=== PATIENT | female | born 1950 | race Caucasian/White ===

== ENCOUNTER 2016-07-29 09:40 | Emergency (ER) | payer MEDICARE, MEDICAID ==
[~2016-07-29 09:40] MED LIST: ACYC400T2 PO; LETR2.5T4 PO; LORA1TAB PO; MOME13HF2 IH; MORP15TA PO; NPR500T PO; ONDA8TAB10 PO; PALB125C PO
--- NOTE | 2016-07-29 09:49 | ED.REPORT ---
HPI-General Illness Date of Service Jul 29, 2016 ED Provider: Dr. Haque Pt is a 65 year old female with a hx of breast and liver cancer on chemo presenting to the ED complaining of a fever of 102.6 onset 2 days ago. Associated symptoms include cough, vomiting, worsening abdominal pain, headache and lower back pain. Denies runny nose, sore throat, sneezing, rash, dysuria, urinary frequency, diarrhea, bloody stool, hematemesis or neck stiffness. Pt has been taking Tylenol with some fever relief. Nursing Notes Stated Complaint: TEST WHITE BLOOD COUNT Chief Complaint: Fever Nursing Notes Reviewed: Yes Allergies: Coded Allergies: codeine (Unverified Adverse Reaction, Intermediate, N/V, Itching, 12/02/15) Uncoded Allergies: CODIENE (Allergy, Intermediate, Nausea,Vomiting, 12/01/15) NAUSEA, VOMITING, ITCHING Scheduled Acyclovir (Acyclovir) 400 Mg Tablet 400 MG PO DAILY Letrozole (Letrozole) 2.5 Mg Tablet 2.5 MG PO DAILYWD Levofloxacin (Levaquin) 750 Mg Tablet 750 MG PO DAILY Mometasone/Formoterol (Dulera 100 Mcg/5 Mcg Inhaler) 13 Gm Hfa.aer.ad 2 PUFFS IH BID Naproxen (Naproxen) 500 Mg Tab 500 MG PO HS Palbociclib (Ibrance) 125 Mg Capsule 125 MG PO DAILY Scheduled PRN Lorazepam (Lorazepam) 1 Mg Tablet 1 MG PO TID PRN PRN For Anxiety Morphine Sulfate (Morphine Sulfate) 15 Mg Tablet 15-30 MG PO Q8H PRN PRN For Pain Ondansetron ODT (Ondansetron ODT) 8 Mg Tab.rapdis 8 MG PO Q12H PRN PRN For Nausea General Time Seen by MD: 09:49 Chief Complaint Fever (102.6) Hx Obtained From: Patient Arrived By: Walk-in Sudden in Onset?: No Onset Occurred: 2 days ago Symptom Duration: Since onset Location: : Abdomen: Back: Head Quality: Painful Severity: Current: Moderate Severity: Maximum: Severe Recent Healthcare: Recent doctor visit, Recent hospitalization Similar Sx Previous: No Past Medical History Past Medical History Notes: Oncologist Ayan Gracia Past Medical History 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, on left physical started September 2015, just starting Ibrance Asthma History of PTSD Past Surgical History Tonsillectomy Appendectomy Prolapsed bladder repair Smoking History Current Some Day Smoker Social History Alcohol Use: "Social" Other Social History: Good social support, Ambulatory Status Independent Review of Systems Full Review of Systems Ears / Nose / Throat: Denies: Nasal congestion, Sore throat Respiratory: Reports: Non-productive cough GI: Reports: Abdominal pain, Nausea, Vomiting, Denies: Bloody/tarry stool, Diarrhea, Hematemesis Female: Denies: Dysuria, Urinary frequency Musculoskeletal: Reports: Back pain, Denies: Neck pain Skin: Denies Rash Neurologic: Reports: Headache Complete sys rev & neg: except as marked. Physical Exam Vital Signs Vital Signs Date Time Temp Pulse Resp B/P Pulse Ox O2 Delivery O2 Flow Rate FiO2 07/29/16 12:51 37.3 83 17 106/65 95 Room Air 07/29/16 09:52 36.4 90 18 114/78 98 Room Air Initial VS: Reviewed General/Constitutional: Well-developed, Well-nourished Head / Eyes: Atraumatic, Normocephalic, PERRL ENT: Mucous membranes moist, Conjunctiva normal, No scleral icterus Neck: Supple, Non-tender, Full range of motion Respiratory: No respiratory distress Extremities: Vascular intact, Neuro intact Neurologic: Alert, Oriented, Nonfocal Psychiatric: Mood/affect normal, Behavior normal, Normal thought content Abdomen: Atraumatic, No distention Lower abdominal tenderness Skin: Atraumatic, Warm, Dry, Intact Couple of mildly erythematous areas 2x4 cm on right forearm. Not hot to the touch, not indurated or fluctuant. Interpretation & Diagnostics Lab Results Interpretation Result Diagram: 07/29/16 1010 07/29/16 1010 Test 07/29/16 10:10 07/29/16 12:04 White Blood Count 2.5th/mm3 (3.8-10.1) Red Blood Count 3.89mil/mm3 (3.90-5.20) Hemoglobin 12.2g/dL (12.0-15.6) Hematocrit 36.6% (35.0-46.0) Mean Corpuscular Volume 94.1fL (81-100) Mean Corpuscular Hemoglobin 31.4pg (27.0-35.0) Mean Corpuscular Hemoglobin Concent 33.3% (32.0-37.0) Red Cell Distribution Width 13.1% (12.3-15.4) Platelet Count 114bil/L (150-400) Neutrophils (%) (Auto) 73.2% (40-74) Lymphocytes (%) (Auto) 24.4% (14-46) Monocytes (%) (Auto) 0.4% (4-12) Eosinophils (%) (Auto) 0.8% (0-5) Basophils (%) (Auto) 0.4% (0-3) Sodium Level 136mEq/L (134-144) Potassium Level 4.0mEq/L (3.5-5.2) Chloride Level 99mEq/L (97-108) Carbon Dioxide Level 22mmol/L (18-29) Blood Urea Nitrogen 14mg/dL (8-27) Creatinine 1.01mg/dL (0.57-1.00) Estimat Glomerular Filtration Rate 79mL/min (>59) Glucose Level 138mg/dL (60-99) Calcium Level 9.1mg/dL (8.5-10.1) Magnesium Level 2.1mg/dL (1.6-2.6) Total Bilirubin 0.7mg/dL (0.0-1.2) Aspartate Amino Transf (AST/SGOT) 151U/L (0-50) Alanine Aminotransferase (ALT/SGPT) 202U/L (0-32) Alkaline Phosphatase 100U/L (25-165) Total Protein 6.9g/dL (6.4-8.4) Albumin 3.5g/dL (3.4-5.0) Hold Mcdonald Top Tube Received (Received) Urine Color Yellow (YELLOW) Urine Appearance Clear (CLEAR,HAZY) Urine pH 5.5 (5.0-8.0) Urine Specific Orange 1.036 (1.003-1.035) Urine Protein Negativemg/dL (NEG,TRACE) Urine Glucose (UA) Negativemg/dL (NEGATIVE) Urine Ketones Negativemg/dL (NEGATIVE) Urine Occult Blood Negative (NEGATIVE) Urine Nitrite Negative (NEGATIVE) Urine Bilirubin Negative (NEGATIVE) Urine Urobilinogen Normalmg/dL (NORMAL) Urine Leukocyte Esterase Trace (NEGATIVE) Urine RBC 0-2/hpf (0-2) Urine WBC 0-5/hpf (0-5) Urine Epithelial Cells Few/hpf (NONE-MOD) Urine Crystals None seen (NONE SEEN) Urine Bacteria None/hpf (NONE-FEW) Urine Hyaline Casts None/lpf (NONE) Urine Granular Casts None seen (NONE SEEN) Urine Waxy Casts None seen (NONE SEEN) Urine Red Blood Cell Casts None seen (NONE SEEN) Urine White Blood Cell Casts None seen (NONE SEEN) Urine Mucus None seen (None Seen) Urine Trichomonas None seen (NONE SEEN) Urine Yeast None (NONE SEEN) Urinalysis Comment None Urine Culture Reflexed Not indicated X-Ray Chest Interpretation Chest Xray Interpretation: IMPRESSION: No acute process. Dictated by: Otilio León M.D. on 07/29/2016 at 10:25 View: AP & lat Interpretation / Wet Read by: Interpret - Radiologist CT Abd / Pelvis Interpretation IMPRESSION: 1. Anterior layering of contrast within the urinary bladder, possibly due to urinary tract infection; recommend correlation with urinalysis. 2. Decreased hepatic metastases. 3. Findings suggestive of cirrhosis. 4. No change in severe bony metastatic disease. Dictated by: Otilio León M.D. on 07/29/2016 at 11:44 Study type: Abdominal CT IV contrast Interpretation / Wet Read by: Interpret - Radiologist Re-Eval/Medical Decision Med Decision/Clinical Course Not neutropenic with URI symptoms likely a bronchitis however given her immunosuppression will start antibiotics. I had recommended Augmentin and azithromycin, the patient refuses this and requests Levaquin. This is not unreasonable, it has good coverage for pathogens, we did at length discussed risk of tendinopathy and other side effects due to Levaquin, she understands and wishes to proceed with Levaquin. Other return in follow-up precautions also discussed with verbally and in written discharge instructions. Time of Eval: 12:23 Patient Status: Condition improved Re-Evaluation/Progress Note: Discussed CT and lab results. The erythema on the pt's forearm does not seem to be worsening. Discussed plan for consultation with the oncologist. Time of Eval: 13:00 Patient Status: Condition improved Re-Evaluation/Progress Note: Discussed plan for discharge. Pt understands and agrees. Consultation : Referral / Consult Name: Sam Kramer MD Call Returned at: 13:03 Note: Oncology. The pt is fine to go home. Counseled Regarding: Diagnosis, Lab results, Need for follow-up, When/why to return to ED Discharge & Departure Primary Impression: Fever Fever type: unspecified Qualified Code: R50.9 - Fever, unspecified Additional Impression: URI, acute Disposition: Home Discharge Condition All VS Reviewed: Yes Condition: Improved Additional Instructions: Take Levaquin as prescribed. Call your oncologist in the morning for follow- up. Return to ER if you develop persistent high fever, lethargy, severe trouble breathing, or any other concerns. Referrals: Rebecca Valladares PA-C (PCP) Andre Gracia Attestation Portions of this note were transcribed by Jacqui Richards. I, Dr. Haque personally performed the history, physical exam and medical decision-making; I reviewed and confirmed the accuracy of the information in the transcribed note. Signed by: Mouna Paulino, 07/29/2016 at 1321. copies to: Rebecca Valladares PA-C; Andre Gracia Timothy S DO Jul 29, 2016 09:49 JACQUI RICHARDS Jul 29, 2016 10:01
[2016-07-29 09:52] VITALS: BP 114/78; PULSE 90; RESP 18; O2SAT 98
[2016-07-29] MEDS ORDERED: 0.9% Sodium Chloride 1,000 ML IV ONE (09:59)
--- NOTE | 2016-07-29 10:27 | DRSVH ---
PROCEDURE: X-RAY CHEST, TWO VIEWS ([id number]) INDICATIONS: cough, fever, on chemo TECHNIQUE: 2 views of the chest were acquired. COMPARISON: None. FINDINGS: Surgical changes and devices: None. Lungs and pleura: No pleural effusions or pneumothorax. Lungs are clear. Mediastinum: Mediastinal contours are normal. Heart size is normal. Bones and chest wall: No suspicious bony abnormalities. Soft tissues appear unremarkable. IMPRESSION: No acute process. Dictated by: Otilio León M.D. on 07/29/2016 at 10:25 Approved by: Otilio León M.D. on 07/29/2016 at 10:26
[2016-07-29 10:30] LABS: BASOPHILS % (AUTO) 0.4 % (0-3); EOSINOPHILS % (AUTO) 0.8 % (0-5); MONOCYTES % (AUTO) 0.4 % (4-12); Mean Corpuscular Hemoglobin 31.4 pg (27.0-35.0); Mean Corpuscular Volume 94.1 fL (81-100); NEUTROPHILS % (AUTO) 73.2 % (40-74); Platelet Count 114 bil/L (150-400)
[2016-07-29 10:49] LABS: Magnesium 2.1 mg/dL (1.6-2.6)
[2016-07-29] MEDS ORDERED: Ondansetron 2 mg/mL 2 mL Inj IVPUSH PRN (11:10)
--- NOTE | 2016-07-29 11:48 | DRSVH ---
PROCEDURE: CT ABDOMEN AND PELVIS WITH CONTRAST ([id number]) INDICATIONS: lower abd pain, fevers, on chemo TECHNIQUE: After the administration of intravenous contrast, 5 mm thick sections acquired from the diaphragm to the symphysis. 5 mm coronal and sagittal reformats were acquired. For radiation dose reduction, the following was used: automated exposure control, adjustment of mA and/or kV according to patient goyo bautista. COMPARISON: [facility], CT, CT CHEST ABD PELVIS W CON, 06/29/2016, 15:08. FINDINGS: Image quality: Excellent. ABDOMEN: Lung bases: Lung bases are clear. Heart size is normal. Solid organs: Liver and spleen are normal in size. Hemangioma within the right hepatic lobe posterio rly is present, as before, measuring roughly 37 mm. Multiple low density hepatic masses are present, which are decreased in size and number. Hepatic contour is nodular, suggestive of cirrhosis. Gallblad matias is within normal limits. Biliary system is non dilated. Pancreas enhances normally. No adrenal nodules. Kidneys demonstrate normal size and enhancement, without hydronephrosis. Peritoneum and bowel: Bowel loops demonstrate normal wall thickness and caliber. No free fluid or a ir. Appendix not seen. No evidence of appendicitis. Nodes and vessels: No retroperitoneal or mesenteric adenopathy by size criteria. Aorta and inferior vena cava are normal in size. Miscellaneous: No ventral hernias. PELVIS: Genitourinary: Bladder wall thickness is normal. There is anterior layering of contrast within the urinary bladder, which may indicate urinary tract infection. Miscellaneous: No inguinal hernias or adenopathy. Bones: Severe diffuse patchy lucency and sclerosis within the axial and proximal appendicular skeleto n is present, indicating severe bony metastatic disease, which has not significantly changed. No vert ebral body compression fractures. IMPRESSION: 1. Anterior layering of contrast within the urinary bladder, possibly due to urinary tract infection; recommend correlation with urinalysis. 2. Decreased hepatic metastases. 3. Findings suggestive of cirrhosis. 4. No change in severe bony metastatic disease. Dictated by: Otilio León M.D. on 07/29/2016 at 11:44 Approved by: Otilio León M.D. on 07/29/2016 at 11:47
[2016-07-29 12:35] LABS: APPEARANCE,URINE CLEAR (CLEAR,HAZY); COLOR,URINE YELLOW (YELLOW); OCCULT BLOOD,URINE NEGATIVE (NEGATIVE); PH,URINE 5.5 (5.0-8.0); UROBILINOGEN,URINE NORMAL (NORMAL)
[2016-07-29] MEDS ORDERED: levoFLOXacin Inj 750 MG in IV Premix 1 EACH IV ONE (12:40)
[2016-07-29 12:51] VITALS: BP 106/65; PULSE 83; RESP 17; O2SAT 95
[2016-07-29] MEDS ORDERED: LEVO750T9 PO (13:19)
== END 2016-07-29 14:18 | disposition home or self-care (01) ==
LOC: SED 10:00
DX: J06.9 Acute upper respiratory infection, unspecified (principal); C50.919 Malignant neoplasm of unspecified site of unspecified female breast; C78.7 Secondary malignant neoplasm of liver and intrahepatic bile duct; F17.200 Nicotine dependence, unspecified, uncomplicated; Z92.21 Personal history of antineoplastic chemotherapy; Z88.5 Allergy status to narcotic agent
CPT/HCPCS: 36415; 71020; 74177; 80053; 81000; 83735; 85025; 87040; 96361; 96365; 96375; 99285; J1956; J2405; J7030; Q9967

== ENCOUNTER 2017-01-11 12:44 | Inpatient (IN) | payer MEDICARE, MEDICAID ==
[~2017-01-11] VITALS: Ht 172.7 cm; Wt 89.2 kg
[~2017-01-11 12:44] MED LIST changes: +LEVO750T9 PO; -PALB125C PO
[2017-01-11 12:48] VITALS: BP 132/86; PULSE 118; RESP 20; O2SAT 94
--- NOTE | 2017-01-11 13:11 | ED.REPORT ---
HPI-General Illness Date of Service Jan 11, 2017 ED Provider: Dylon Whitt MD Pt is a 66 year old female with a history of breast cancer that metastasized to her liver and lungs who presents to the ED c/o generalized malaise. Her son states that she has had sudden confusion for the past 2-3 days that has never happened before. Additional symptoms include nausea, vomiting, abdominal pain, and distension from liver failure/cancer. She denies unilateral weakness. Pt states that her doctor called her last night, which was confirmed in the ED. Dr. William states he called her because he was worried about her liver since she didn't show up for chemo two days ago. Nursing Notes Stated Complaint: WEAK Chief Complaint: Female Abdominal Pain Nursing Notes Reviewed: Yes (Mr. Youth not reconciled) Allergies: Coded Allergies: nitrofurantoin (Verified Allergy, Severe, Nausea,Vomiting, 01/11/17) morphine (Verified Adverse Reaction, Severe, nausea/vomiting, 01/11/17) codeine (Verified Adverse Reaction, Intermediate, N/V, Itching, 01/11/17) Scheduled Acyclovir (Acyclovir) 400 Mg Tablet 400 MG PO DAILY Mometasone/Formoterol (Dulera 100 Mcg/5 Mcg Inhaler) 13 Gm Hfa.aer.ad 2 PUFFS IH BID Scheduled PRN Hydromorphone (Hydromorphone) 2 Mg Tablet 2 MG PO QID PRN PRN For Pain Lorazepam (Lorazepam) 1 Mg Tablet 1 MG PO TID PRN PRN For Anxiety Ondansetron ODT (Ondansetron ODT) 8 Mg Tab.rapdis 8 MG PO Q12H PRN PRN For Nausea General Time Seen by MD: 13:09 Chief Complaint Other (Generalized malaise) Hx Obtained From: Patient, Son Arrived By: Walk-in Sudden in Onset?: No Symptom Duration: Constant Quality: Painful Severity: Current: Moderate Severity: Maximum: Severe Recent Healthcare: Recent doctor visit Past Medical History Past Medical History Notes: Oncologist Dr. William Past Medical History Metastatic breast cancer with liver notable and osseous involvement, on left physical started September 2015, just starting Ibrance Asthma History of PTSD Past Surgical History Tonsillectomy Appendectomy Prolapsed bladder repair Smoking History Current Some Day Smoker Social History Alcohol Use: "Social" Other Social History: Good social support, Ambulatory Status Independent Review of Systems Distention from liver failure/cancer No unilateral weakness Full Review of Systems Constitutional: Reports: Malaise GI: Reports: Abdominal pain, Nausea, Vomiting Psychiatric: Reports: Change mental status, Confusion Complete sys rev & neg: except as marked. Physical Exam Vital Signs Vital Signs Date Time Temp Pulse Resp B/P Pulse Ox O2 Delivery O2 Flow Rate FiO2 01/11/17 14:31 95 Nasal Cannula 2 01/11/17 14:30 67 14 103/59 89 Room Air 01/11/17 12:48 36.5 118 20 132/86 94 Room Air Initial VS: Reviewed, Vital signs abnormal Head / Eyes: Atraumatic, Normocephalic Neck: Supple, Full range of motion General/Constitutional: Awake Slow No visible sign of trauma Respiratory / Chest: Atraumatic, Breath sounds NL, Breath sounds = bilat, No respiratory distress Cardiovascular: Heart rate NL, Regular rhythm, Heart sounds NL Abdomen: Soft Moderate palpable ascites, no focality Skin: Warm, Dry No jaundice Neurologic: Speech NL Mental Status: Positive: Confused Mild asterixis Interpretation & Diagnostics Lab Results Interpretation Result Diagram: 01/11/17 1315 01/11/17 1315 Test 01/11/17 13:15 01/11/17 13:30 White Blood Count 7.9th/mm3 (3.8-10.1) Red Blood Count 4.22mil/mm3 (3.90-5.20) Hemoglobin 14.1g/dL (12.0-15.6) Hematocrit 41.0% (35.0-46.0) Mean Corpuscular Volume 97.2fL (81-100) Mean Corpuscular Hemoglobin 33.4pg (27.0-35.0) Mean Corpuscular Hemoglobin Concent 34.4% (32.0-37.0) Red Cell Distribution Width 16.0% (12.3-15.4) Platelet Count 166bil/L (150-400) Neutrophils (%) (Auto) 60.0% (40-74) Lymphocytes (%) (Auto) 14.3% (14-46) Monocytes (%) (Auto) 23.4% (4-12) Eosinophils (%) (Auto) 1.4% (0-5) Basophils (%) (Auto) 0.5% (0-3) Prothrombin Time 14.9sec (8.1-12.5) Prothromb Time International Ratio 1.38ratio Sodium Level 134mEq/L (134-144) Potassium Level 3.5mEq/L (3.5-5.2) Chloride Level 99mEq/L (97-108) Carbon Dioxide Level 18mmol/L (18-29) Blood Urea Nitrogen 10mg/dL (8-27) Creatinine 0.75mg/dL (0.57-1.00) Estimat Glomerular Filtration Rate 111mL/min (>59) Glucose Level 170mg/dL (60-99) Lactic Acid Level 3.1mmol/L (0.4-2.0) Calcium Level 8.3mg/dL (8.5-10.1) Magnesium Level 2.3mg/dL (1.6-2.6) Total Bilirubin 3.3mg/dL (0.0-1.2) Aspartate Amino Transf (AST/SGOT) 357U/L (0-50) Alanine Aminotransferase (ALT/SGPT) 95U/L (0-32) Alkaline Phosphatase 290U/L (25-165) Total Protein 6.0g/dL (6.4-8.4) Albumin 2.6g/dL (3.4-5.0) Lipase 22U/L (13-60) Ammonia 165ug/dL (18-53) Lab Results Interpretation: CBC normal CMP marked liver function test that denies consistent with known liver metastases Ammonia severely elevated CT Head Interpretation IMPRESSION: No acute intracranial abnormality. Dictated by: Gonzales Jerome M.D. on 01/11/2017 at 12:43 Approved by: Gonzales Jerome M.D. on 01/11/2017 at 12:45 Study: Head CT no contrast Interpretation / Wet Read by: Interpret - Radiologist Re-Eval/Medical Decision Med Decision/Clinical Course This is a 66-year-old female with metastatic breast CA brought by the son with increasing altered mental status assistance slowly worsening over the past 3 days. She missed her appointment 3 days ago to initiate a new chemotherapy as these liver metastases, ascites and a newly diagnosed by CT imaging at [place]. There is a concern for developing hepatic encephalopathy. Patient certainly altered, has difficulty with concentration, and has mild asterixis. She is not jaundiced, but does have palpable clinical ascites. Accu-Chek was normal. In. Lactulose was initiated CT brain was negative. Ammonia severely elevated. Case is discussed with the patient's oncologist as the family is under the impression the patient's been told she only has a week to live, Dr. William is more optimistic and did not want a palliative care consultation obtained at this time and she'll be starting chemotherapy with his new regimen shortly She is being admitted for continued management Source of Hx: Old records Time of Eval: 14:00 Re-Evaluation/Progress Note: Lab analyzer down, labs are running slow Time of Eval: 14:33 Re-Evaluation/Progress Note: Pt rechecked. Discussed plan for admission. Pt and pt's son understands and agrees with plan. All questions addressed. Consultation #1: Referral / Consult Name: Dale William MD Call Returned at: 13:28 Segregator: Agrees with eval, Agrees with plan Note: Discussed pt's case with oncologist, Dr. William. He states he did call pt last night because he was worried about her liver since she didn't show up for chemo a few days ago. He will see pt. Consultation #2: Referral / Consult Name: Deepali Cintron DO Consulted With: Hospitalist Call Returned at: 14:43 Segregator: Will see patient, Agrees with plan, Accepts admit Note: Discussed pt's case with hospitalist, Dr. Cintron. She accepts admission. Differential Diagnosis: Negative: Abdominal pain, Acute coronary syndrome, Allergies, Diabetes mellitus, Drug dependence, G-tube repair/replacement, Neutropenia Counseled Regarding: Diagnosis, Lab results, Need for admission Discharge & Departure Primary Impression: Hepatic encephalopathy Additional Impressions: Altered mental status Altered mental status type: unspecified Qualified Code: R41.82 - Altered mental status, unspecified Metastatic breast cancer Disposition: ADMITTED TO HOSPITAL Discharge Condition All VS Reviewed: Yes Condition: Stable Referrals: Rebecca Valladares PA-C (PCP) Dale William MD Attestation Portions of this note were transcribed by Candi Hairston. I, Dr. Whitt, personally performed the history, physical exam and medical decision-making; I reviewed and confirmed the accuracy of the information in the transcribed note. Signed by: Mouna Mcdonald, 01/11/17. copies to: Rebecca Valladares PA-C; Dale William MD, Matthew F MD Jan 11, 2017 13:11 Candi Hairston Jan 11, 2017 13:21
[2017-01-11] MEDS ORDERED: Lactulose 20 Gm/30 mL 30 mL Syrup PO ONE (13:30)
[2017-01-11 13:31] LABS: BASOPHILS % (AUTO) 0.5 % (0-3); EOSINOPHILS % (AUTO) 1.4 % (0-5); MONOCYTES % (AUTO) 23.4 % (4-12); Mean Corpuscular Hemoglobin 33.4 pg (27.0-35.0); Mean Corpuscular Volume 97.2 fL (81-100); Platelet Count 166 bil/L (150-400)
[2017-01-11 13:45] LABS: INR 1.38 ratio
--- NOTE | 2017-01-11 13:47 | DRSVH ---
PROCEDURE: CT BRAIN WITHOUT CONTRAST ([id number]) INDICATIONS: altered LOC, h/o met CA TECHNIQUE: Noncontrast 4.5 mm thick angled axial sections acquired from the foramen magnum to the vertex, with c oronal reformats. COMPARISON: None. FINDINGS: Image quality: Excellent. CSF spaces: Basal cisterns are patent. No extra-axial fluid collections. The ventricles are symmet leanne in size and shape. Brain: No intracranial bleeds or masses. There is cerebral volume loss for age, with resultant vent ricular and sulcal prominence. There are periventricular and deep white matter chronic small vessel ischemic changes. There is intracranial internal carotid artery atherosclerosis. Skull and face: Calvarium and visualized facial bones appear intact, without suspicious lesions. Sinuses: Visualized sinuses and mastoids are clear. IMPRESSION: No acute intracranial abnormality. Dictated by: Gonzales Jerome M.D. on 01/11/2017 at 12:43 Approved by: Gonzales Jerome M.D. on 01/11/2017 at 12:45
[2017-01-11] MEDS ORDERED: HYDROmorphone 1 mg/mL Inj IVPUSH ONE (13:55)
[2017-01-11] MEDS ORDERED: Ondansetron 2 mg/mL 2 mL Inj IVPUSH ONE (13:55)
[2017-01-11] MEDS ORDERED: HYDR2TAB28 PO (14:16)
[2017-01-11 14:24] LABS: Magnesium 2.3 mg/dL (1.6-2.6)
[2017-01-11 14:30] VITALS: BP 103/59; PULSE 67; RESP 14; O2SAT 89
[2017-01-11 14:31] VITALS: O2SAT 95
[2017-01-11] MEDS ORDERED: Ondansetron 2 mg/mL 2 mL Inj IVPUSH PRN (15:15)
[2017-01-11] MEDS ORDERED: Alum-Mag Hydrox-Simeth 30 mL Suspension PO PRN ×2 (15:15→17:10)
[2017-01-11 16:03] VITALS: BP 119/74; PULSE 95; RESP 20; O2SAT 90
[2017-01-11] MEDS ORDERED: MetoCLOpramide 5 mg/mL 2 mL Inj IVPUSH PRN (17:10)
[2017-01-11] MEDS ORDERED: Polyethylene Glycol (PEG) 17 Gm Powder PO PRN (17:10)
[2017-01-11] MEDS ORDERED: 0.9% Sodium Chloride 1,000 ML IV ONE (17:10)
--- NOTE | 2017-01-11 17:18 | PCM.HPMED ---
Subjective Date of Service Jan 11, 2017 Primary Provider: Admitting Physician: Deepali Cintron DO Primary Care Physician: Rebecca Valladares PA-C Attending Physician: Deepali Cintron DO Admit Status: From the Emergency Department, Full Admit, Admit to Red Team Chief Complaint: Nausea and vomiting/1 and 1/2 week Generalized weakness/few days Lightheadedness/few days On and off confusion/2 days History of Present Illness: 66-year-old lady with past medical history of metastatic breast cancer( extensive metastases to liver and bone) presented to emergency room due to above complaints She states she had UTI 2 weeks ago and was given antibiotics from [facility]. erx records nitrofurantoin. Nitrofurantoin listed as allergy here She states she has been having repeated episodes of nausea and vomiting since starting the antibiotic. She has poor oral intake. She continued to have nausea vomiting and developed generalized weakness with lightheadedness. She was seen a week ago with oncology and planned to start new chemotherapy given progression of disease. Patient did not show up for chemotherapy before yesterday. Dr. William called her last night to check why she missed chemotherapy. per ED note She was reportedly was confused when she spoke to him last night. Patient states she remembers talking to him but is not sure if she was confused ED course : Ct brain unremarkable. Elevated LFTs and ammonia noted. Lactulose given in ED. Admission requested for hepatic encephalopathy Review of Systems: Comprehensive review of systems performed, pertinent positives and negatives included in history of present illness Allergies Coded Allergies: nitrofurantoin (Verified Allergy, Severe, Nausea,Vomiting, 01/11/17) morphine (Verified Adverse Reaction, Severe, nausea/vomiting, 01/11/17) codeine (Verified Adverse Reaction, Intermediate, N/V, Itching, 01/11/17) Home Medications Acyclovir (Acyclovir) 400 Mg Tablet 400 MG PO DAILY Mometasone/Formoterol (Dulera 100 Mcg/5 Mcg Inhaler) 13 Gm Hfa.aer.ad 2 PUFFS IH BID Scheduled PRN Hydromorphone (Hydromorphone) 2 Mg Tablet 2 MG PO QID PRN PRN For Pain Lorazepam (Lorazepam) 1 Mg Tablet 1 MG PO TID PRN PRN For Anxiety Ondansetron ODT (Ondansetron ODT) 8 Mg Tab.rapdis 8 MG PO Q12H PRN PRN For Nausea PMH Metastatic breast cancer with liver notable and osseous involvement, diagnosed September 2015, just starting Ibrance Asthma History of PTSD Surgical History per chart and verified from patient Tonsillectomy Appendectomy Prolapsed bladder repair Family History per chart and verified from patient She has three children, two sons and a daughter. A brother who from complications from hepatitis during a liver transplant attempt. Maternal grandmother with breast cancer diagnosed in her 80s. Social History Hx Alcohol Use: No Hx Substance Use: No Hx Tobacco Use: No Smoking Status: Current Some Day Smoker Exam Vital Signs Vital Sign - Last Date Time Temp Pulse Resp B/P Pulse Ox O2 Delivery O2 Flow Rate FiO2 01/11/17 16:03 37.3 95 20 119/74 90 Nasal Cannula 2.00 Exam Gen. patient is lethargic lying comfortably in hospital bed HEENT: Head is normocephalic atraumatic, dry tongue Lungs clear to auscultation bilaterally Heart regular rate and rhythm without murmurs gallops or rubs Abdomen soft nontender without hepatosplenomegaly Extremities pulses are present dorsalis pedis posterior tibialis and radial. tSkin is warm and dry there are no rashes, Psych alert and oriented to person place and time Neuro cranial nerves II through XII are grossly intact Lymph: There is no lymphadenopathy appreciated in the cervical supra infraclavicular regions : no mejía Lab and Diagnostics Result Diagram: 01/11/17 1315 01/11/17 1315 X-Rays, CTs and MRIs PROCEDURE: CT BRAIN WITHOUT CONTRAST ([id number]) INDICATIONS: altered LOC, h/o met CA IMPRESSION: No acute intracranial abnormality. Dictated by: Gonzales Jerome M.D. on 01/11/2017 at 12:43 Assessment & Plan 66-year-old lady with past medical history of metastatic breast cancer( extensive metastases to liver and bone) presented to emergency room due to Nausea, vomiting,Generalized weakness and Lightheadedness, confusion of few days # Intractable nausea and vomiting ,acute,poa -de to liver mets and adverse effects of nitrofurointoin -IV fluids,1.5 L bolus and then 150 ml/h -zofran and reglan prn -urinalysis requested # hepatic encephalopathy ,acute,poa -due to liver mets -elevated ammonia at 165 -lactlose tid -CT brain negative # dehydration with lactic acidosis ,acute,poa -IV fluids -zofran and reglan prn # metastatic breast cancer( extensive metastases to liver and bone) -per Dr William default full code . patient wants to think tonight and make decision tomorrow inpatient copies to: Rebecca Valladares PA-C; Dale William MD, Melaku MD Jan 11, 2017 17:18
[2017-01-11] MEDS: Ondansetron 2 mg/mL 2 mL Inj IVPUSH PRN (17:21)
[2017-01-11] MEDS ORDERED: 0.9% Sodium Chloride 500 ML IV ONE (17:45)
--- NOTE | 2017-01-11 17:54 | NUR ---
ADMIT Patient arrived from ER at 1400 to room 1023. Pain and nausea medications given and patient oriented to room and hospital policies. NS wide open started 1.5 Liter bolus then to run at 150ml/hr. Patient having diarrhea x2 so far, was given Lactose in ER for ammonia level 165. One bout of emeries. Abdomen distended and ascetic, hyper active bowel tones. Patient lung sounds clear and decreased anteriorly. Telemetry placed, SR 99, VSS. Patient passive and at times emotional liable, cancer Dx plus situational crisis at home. Per patient she has custody of 2y/o and 4y/o grandchildren of middle son who is in [facility]. Other son and daughter now taking care of grandchildren?
[2017-01-11 18:06] VITALS: PULSE 98
[2017-01-11] MEDS ORDERED: HYDROmorphone 1 mg/mL Inj IVPUSH PRN ×2 (19:40→23:40)
--- NOTE | 2017-01-11 20:04 | PROG NOTE ---
[address] [address] PROGRESS NOTE PATIENT: ROBERT RAMIREZ : 1950 MR#: [id number] ADMIT: 01/11/2017 JOB ID: [id number] DATE: 01/11/2017 DIAGNOSIS: Progressive hepatic failure secondary to extensive metastatic disease, associated with ascites, jaundice, and hepatic encephalopathy. HISTORY OF PRESENT ILLNESS: The patient is a 66-year-old woman with metastatic ER positive breast cancer, extensively involving bilateral hepatic lobes, causing pseudocirrhosis. She was seen in clinic a week ago and at that point had elevated ammonia at 96, and bilirubin was 1.1. Albumin was 2.9 and INR was 1.25. She was scheduled to start Doxil chemotherapy last Saturday but was too ill and probably too confused to come to clinic. We called her several times and could not get a hold of her. I called her last night and advised her to refer to emergency department today. At ER today bilirubin has further increased to 3.3, and ammonia has further increased to 165. Albumin has dropped to 2.6. AST, ALT, and alkaline phosphatase have all increased since last week. Lactic acid is 3.1. INR has further increased to 1.38. SUBJECTIVE: She is profoundly weak and constantly nauseated. She has been vomiting on a daily basis. She complains of abdominal distention and discomfort, predominantly in right upper quadrant area. She has been intermittently confused. EXAM: Lethargic but when awake oriented x3. Blood pressure 119/74, heart rate 95, temperature afebrile. O2 saturation 90% on 2 L. Abdomen is moderately distended and tender in right upper quadrant with palpable ascites. IMPRESSION AND RECOMMENDATIONS: Metastatic estrogen receptor positive breast cancer, extensively involving liver, associated with progressive hepatic failure. She has progressive jaundice, coagulopathy, ascites, and hepatic encephalopathy. This patient has not received palliative chemotherapy except only one cycle of Gemzar last June. We would like to try palliative chemotherapy, but it would need to be started next week with the hope of reversing her liver disease. Understandably giving palliative chemotherapy to patient with progressive liver failure is quite tricky and risky, but nonetheless, it would be her only chance of extending survival. Over the weekend, she needs to receive daily supportive care, lactulose for hepatic encephalopathy, rule out infections, especially UTI, and I will schedule ultrasound-guided paracentesis tomorrow. I will return for followup on Saturday or Saturday, and plan to start low-dose Doxil single-agent chemotherapy. PLAN: 1. Abdominal paracentesis tomorrow for palliation and check fluid for albumin, cell count, differential, and cytology. 2. Continue lactulose and monitor ammonia on a daily basis. 3. Start low-dose furosemide and spironolactone. 4. Monitor INR, chemistry profile, and ammonia on a daily basis. 5. Low-dose oxycodone, start 2.5-5 mg t.i.d. p.r.n. pain.
[2017-01-11 20:11] VITALS: BP 133/80; PULSE 98; O2SAT 93
[2017-01-11] MEDS: Lactulose 20 Gm/30 mL 30 mL Syrup PO SCH (21:30)
[2017-01-11] MEDS: 0.9% Sodium Chloride 1,000 ML IV SCH ×2 (21:31→23:50)
[2017-01-11] MEDS: HYDROmorphone 0.5 mg/0.5 mL iSecure Syringe IVPUSH PRN (21:31)
[2017-01-12] VITALS (7 sets, daily range): BP systolic 118–131; BP diastolic 69–78; PULSE 97–113; RESP 17–20; O2SAT 90–98
[2017-01-12] MEDS: HYDROmorphone 0.5 mg/0.5 mL iSecure Syringe IVPUSH PRN ×5 (01:42→21:22)
--- NOTE | 2017-01-12 05:48 | NUR ---
Pain Pain medications had been discontinued by previous ronald MACHUCA hospitalist and received small dose of PRN pain medication. Pain medication effective. Up to bedside commode with SBA tolerating activity well.
[2017-01-12 05:53] LABS: BASOPHILS % (AUTO) 0.6 % (0-3); EOSINOPHILS % (AUTO) 1.2 % (0-5); MONOCYTES % (AUTO) 22.2 % (4-12); Mean Corpuscular Hemoglobin 33.2 pg (27.0-35.0); Mean Corpuscular Volume 98.4 fL (81-100); NEUTROPHILS % (AUTO) 59.2 % (40-74); Platelet Count 148 bil/L (150-400)
[2017-01-12 06:03] LABS: Magnesium 2.1 mg/dL (1.6-2.6)
[2017-01-12] MEDS: 0.9% Sodium Chloride 1,000 ML IV SCH ×2 (07:42→15:07)
[2017-01-12] MEDS: Lactulose 20 Gm/30 mL 30 mL Syrup PO SCH ×3 (08:43→21:34)
--- NOTE | 2017-01-12 08:48 | NUR ---
Pain Patient reported 7/10 abdominal pain. 0.5mg Dilaudid given. Denies nausea at this time. Patient repositions self for comfort. Call light and tray table within reach. will continue to monitor patient hourly.
[2017-01-12 09:31] LABS: APPEARANCE,URINE CLOUDY (CLEAR,HAZY); COLOR,URINE AMBER (YELLOW); OCCULT BLOOD,URINE NEGATIVE (NEGATIVE); UROBILINOGEN,URINE NORMAL (NORMAL)
[2017-01-12 09:32] LABS: ICTOTEST,URINE POSITIVE (Negative)
--- NOTE | 2017-01-12 10:41 | DRSVH ---
PROCEDURE: US ABDOMEN, LIMITED ([id number]) INDICATIONS: Ascites, liver disease due to metastatic breast ca TECHNIQUE: Real-time focused scanning was performed of the abdomen, with image documentation. COMPARISON: [facility], CT, CT ABD PELVIS W CON, 07/29/2016, 11:23. FINDINGS: Small amount of peritoneal fluid noted all 4 quadrants. IMPRESSION: Ascites. Mild ascites is insufficient for paracentesis. Dictated by: Kathrine Giron MD, PhD on 01/12/2017 at 10:37 Approved by: Kathrine Giron MD, PhD on 01/12/2017 at 10:39
--- NOTE | 2017-01-12 13:40 | PCM.PNMED ---
Subjective Date of Service Jan 12, 2017 Subjective Nausea and vomiting improving. Had an episode of diarrhea overnight. Afebrile. Improving overall. Exam Vital Signs Vital Sign - Last Date Time Temp Pulse Resp B/P Pulse Ox O2 Delivery O2 Flow Rate FiO2 01/12/17 08:31 103 01/12/17 07:44 Supplement Oxygen 01/12/17 05:25 36.9 20 122/69 92 2.00 Intake and Output 01/11/17 01/11/17 01/12/17 Cumulative From/Thru 14:59 22:59 06:59 01/11/17 12:48 - 01/12/17 06:26 Intake Total 240 ml 3422 ml 3662 ml Output Total 6 ml 6 ml Balance 240 ml 3416 ml 3656 ml Intake Oral 240 ml 700 ml 940 ml IV Total 2722 ml 2722 ml Output Urine/Stool Mix 6 ml 6 ml Exam Gen. patient is lethargic lying comfortably in hospital bed HEENT: Head is normocephalic atraumatic, dry tongue Lungs clear to auscultation bilaterally Heart regular rate and rhythm without murmurs gallops or rubs Abdomen soft , distended, nontender Extremities pulses are present dorsalis pedis posterior tibialis and radial. tSkin is warm and dry there are no rashes, Psych alert and oriented to person place and time Neuro cranial nerves II through XII are grossly intact Lymph: There is no lymphadenopathy appreciated in the cervical supra infraclavicular regions : no mejía IVs and Medications Medications Reviewed: Medications were reviewed in detail Lab and Diagnostics Result Diagram: 01/12/17 0535 01/12/17 0535 X-Rays, CTs and MRIs PROCEDURE: CT BRAIN WITHOUT CONTRAST ([id number]) INDICATIONS: altered LOC, h/o met CA IMPRESSION: No acute intracranial abnormality. Dictated by: Gonzales Jerome M.D. on 01/11/2017 at 12:43 PROCEDURE: US ABDOMEN, LIMITED ([id number]) INDICATIONS: Ascites, liver disease due to metastatic breast ca IMPRESSION: Ascites. Mild ascites is insufficient for paracentesis. Dictated by: Kathrine Giron MD, PhD on 01/12/2017 at 10:37 Assessment & Plan 66-year-old lady with past medical history of metastatic breast cancer( extensive metastases to liver and bone) presented to emergency room due to Nausea, vomiting,Generalized weakness and Lightheadedness, confusion of few days # Intractable nausea and vomiting ,acute,poa -due to liver mets and adverse effects of nitrofurointoin vs othres -IV fluids 150 ml/h -zofran and reglan prn -urinalysis no pyuria # hepatic encephalopathy ,acute,poa, improving -due to liver mets -elevated ammonia at 165 initially. Now improving. Patient had 2 episodes of loose stool overnight -lactlose tid , titrate to 2-3 bowel movements a day -CT brain negative # dehydration with lactic acidosis ,acute,poa resolved -IV fluids -zofran and reglan prn # metastatic breast cancer( extensive metastases to liver and bone) -Paracentesis requested by oncology but insufficient fluid on ultrasound -per Dr William default full code . patient does not want to think or make decision for now inpatient VTE Mechanical Devices: Intermittant Pneumatic CD Justo Moon MD Jan 12, 2017 13:40
--- NOTE | 2017-01-12 14:49 | NUR ---
NUTRITION ASSESSMENT: ASSESS: 66 YO female presents with nausea and vomiting x 1-1/2 weeks, generalized weakness, lightheadedness and confusion for several days. Intractable nausea, vomiting and hepatic encephalopathy due to liver mets and adverse effects of nitrofurointoin improved. CT brain negative. Paracentesis requested by oncology but insufficient fluid on ultrasound. The patient has been refusing her trays due to nausea. She has had no weight loss related to her cancer. Code status: full. PMHx: Metastatic breast cancer with liver and osseous involvement, diagnosed September 2015, just starting Ibrance, asthma, PTSD. DIET: General. Pt. refusing trays. LABS: Reviewed. C 7.2, Total Bili 4.5, AST 291, ALT 79, Alk Phos 263, Ammonia 98, Alb 2.3. MEDICATIONS: Reviewed. Lactulose, dilaudid, reglan, zofran. NUTRITION FOCUSED PHYSICAL ASSESSMENT: GI symptoms / stool: Diarrhea noted. Nick: 20. Skin Integrity: No issues reported. ANTHROPOMETRICS: Current Wt: 82.73 kg BMI: 27.0 kg/m2. IBW: 47.8 kg (173.1% IBW) ESTIMATED NEEDS (CANCER): Calories: 2068 - 2482 kcal (25 - 30 kcal / kg BW) Protein: 83 - 124 g protein (1.0 - 1.5 g / kg BW) NUTRITION DIAGNOSIS: 1)Increased nutrient needs related to cancer treatment, as evidenced by intractable nausea vomiting. INTERVENTION: 1) Will add Ensure and yogurt to trays. MONITOR/EVALUATE: PO / supplement tolerance / intake, labs, weight, nutritional status. Follow up per moderate nutrition risk guidelines.
--- NOTE | 2017-01-12 15:11 | NUR ---
Lactulose Patient refused the afternoon dose of lactulose. She has been having multiple loose bowel movements and has been incontinent and dribble of her bowels. She Stated "I think my body needs a rest. If the doctor wants to come talk to me, he can but I can't do it right now.". Talked with the patient about the importance of continuing with the lactulose treatment but she continued to refuse this dose.
--- NOTE | 2017-01-12 20:21 | NUR ---
Respiratory This afternoon, during an hourly check on the patient, she looked short of breath-she had slight labored breathing. The patient denied shortness of breath but stated "I'm having a lot of pain.". The patient was given IVP pain medication and upon reassessment said she still had some pain was it was better. At this time, I listened to the patient's lung sounds and they were slightly coarse. I encouraged the patient to take deep breaths and cough. The patient stated "I can't. I have too much pain to cough.". made aware and IV fluids DC'd.
[2017-01-13] VITALS (9 sets, daily range): BP systolic 119–144; BP diastolic 72–79; PULSE 97–116; RESP 18–20; O2SAT 88–94
[2017-01-13] MEDS: Ondansetron 2 mg/mL 2 mL Inj IVPUSH PRN
--- NOTE | 2017-01-13 01:52 | NUR ---
O2 Saturation Patient up to bathroom with increased agitation and odd comments "I hear a dog barking", according to previous notes this is not new for patient. NC 2L O2 saturation at 86% lung sounds course with slight wheezing, afebrile. Increased O2 to 4L and put head of the bed up, rechecked O2 saturation, now 92%. Patient in bed, with eyes closed, chest rising and falling, bed alarm on for safety. Will continue to monitor.
[2017-01-13] MEDS: HYDROmorphone 0.5 mg/0.5 mL iSecure Syringe IVPUSH PRN ×5 (05:13→23:35)
[2017-01-13 08:43] LABS: BASOPHILS % (AUTO) 0.3 % (0-3); EOSINOPHILS % (AUTO) 0.7 % (0-5); MONOCYTES % (AUTO) 21.3 % (4-12); Mean Corpuscular Hemoglobin 32.9 pg (27.0-35.0); Mean Corpuscular Volume 96.7 fL (81-100); NEUTROPHILS % (AUTO) 59.5 % (40-74); Platelet Count 184 bil/L (150-400)
[2017-01-13] MEDS: Lactulose 20 Gm/30 mL 30 mL Syrup PO SCH ×3 (09:06→19:32)
[2017-01-13] MEDS ORDERED: Ondansetron 8 mg ODT Tablet PO PRN (10:30)
[2017-01-13] MEDS ORDERED: LORazepam 1 mg Tablet PO PRN (10:35)
--- NOTE | 2017-01-13 11:43 | NUR ---
IV/CT Scan Pt c/o of pain with L AC IV and flush of NS today with pain medication; no noted redness to area. Pt refused CT Scan and wishing to wait until seen by Oncology on Saturday. RN sat at BS with pt today explaining the reasoning for the CT scan and necessity of new IV start to which pt states, "I understand." Agrees to new IV start being placed and requesting IV therapy to start it, would like some time to rest before IV start and CT scan to be done, states, "I'm exhausted, can I just rest for awhile?" Rn explained timeliness and demands of the hospital to which pt states understanding. Care ongoing.
--- NOTE | 2017-01-13 13:02 | DRSVH ---
PROCEDURE: CT ANGIO CHEST PULMONARY EMBOLISM ([id number]) INDICATIONS: r/o PE ,d-dimer 23 TECHNIQUE: After the administration of intravenous contrast, 2 mm thick sections acquired from the pulmonary api ed to the posterior costophrenic angles. 3-dimensional maximum intensity projection (MIP) coronal a nd sagittal reformats were then acquired through the thorax. For radiation dose reduction, the follo wing was used: automated exposure control, adjustment of mA and/or kV according to patient size. COMPARISON: None. FINDINGS: Image quality: Excellent. Pulmonary arteries: Pulmonary arteries are normal in size, and demonstrate no intraluminal filling d efects to suggest central pulmonary embolism. Lungs and pleura: No pneumothorax. Small bilateral pleural effusions are present. There is moderate b ibasilar dependent air space opacity. Groundglass density within the bilateral upper lobes is present . and peripheral airways are patent. Mediastinum: Heart size is normal, without pericardial effusion. No mediastinal or hilar adenopathy . Thoracic aorta is normal in caliber and enhancement. Esophagus is normal in caliber, without hiat al hernia. Bones and chest wall: Multiple lytic and sclerotic foci throughout the visualized osseous structures are present , as before. Ribs and thoracic spine appear intact throughout. Thyroid gland is within n ormal limits. No axillary or supraclavicular adenopathy. Abdomen: Visualized portions of the upper abdomen demonstrate moderate ascites, as well as a lobular hepatic contour. Multifocal low-density foci throughout the hepatic parenchyma are present, which ap pears to have increased. IMPRESSION: 1. No pulmonary embolus. 2. Bilateral pneumonia with small parapneumonic effusions bilaterally. 3. Increased hepatic metastatic disease. Increased ascites. 4. Severe diffuse skeletal metastases. Dictated by: Otilio León M.D. on 01/13/2017 at 12:57 Approved by: Otilio León M.D. on 01/13/2017 at 13:00
[2017-01-13] MEDS ORDERED: Fluticasone-Salmeterol 100-50 Inhaler INHALATION ONE (14:00)
--- NOTE | 2017-01-13 14:42 | PCM.PNMED ---
Subjective Date of Service Jan 13, 2017 Subjective Patient remained tachycardic despite IV fluid rehydration. She also has slightly worsened decent now with increased oxygen requirement. She is using 4.5 L of oxygen and sats low 90's. Never used any oxygen at home. D-dimer checked and markedly elevated which prompted CT which is negative for PE Exam Vital Signs Vital Sign - Last Date Time Temp Pulse Resp B/P Pulse Ox O2 Delivery O2 Flow Rate FiO2 01/13/17 13:33 36.3 101 18 119/76 91 Nasal Cannula 4.50 Intake and Output 01/12/17 01/12/17 01/13/17 Cumulative From/Thru 14:59 22:59 06:59 01/11/17 12:48 - 01/13/17 06:38 Intake Total 2922 ml 440 ml 7024 ml Output Total 204 ml 350 ml 560 ml Balance 2718 ml 90 ml 6464 ml Intake Oral 1200 ml 440 ml 2580 ml IV Total 1722 ml 4444 ml Output Urine Total 200 ml 350 ml 550 ml Urine/Stool Mix 4 ml 0 ml 10 ml # Bowel Movements 4 4 Exam Gen. patient is lethargic lying comfortably in hospital bed HEENT: Head is normocephalic atraumatic, dry tongue Lungs clear to auscultation bilaterally Heart regular rate and rhythm without murmurs gallops or rubs Abdomen soft , distended, nontender Extremities pulses are present dorsalis pedis posterior tibialis and radial. tSkin is warm and dry there are no rashes, Psych alert and oriented to person place and time Neuro cranial nerves II through XII are grossly intact Lymph: There is no lymphadenopathy appreciated in the cervical supra infraclavicular regions : no mejía IVs and Medications Medications Reviewed: Medications were reviewed in detail Lab and Diagnostics Result Diagram: 01/13/1781801/13/17818 X-Rays, CTs and MRIs PROCEDURE: CT BRAIN WITHOUT CONTRAST ([id number]) INDICATIONS: altered LOC, h/o met CA IMPRESSION: No acute intracranial abnormality. Dictated by: Gonzales Jerome M.D. on 01/11/2017 at 12:43 PROCEDURE: US ABDOMEN, LIMITED ([id number]) INDICATIONS: Ascites, liver disease due to metastatic breast ca IMPRESSION: Ascites. Mild ascites is insufficient for paracentesis. Dictated by: Kathrine Giron MD, PhD on 01/12/2017 at 10:37 PROCEDURE: CT ANGIO CHEST PULMONARY EMBOLISM ([id number]) INDICATIONS: r/o PE ,d-dimer 23 IMPRESSION: 1. No pulmonary embolus. 2. Bilateral pneumonia with small parapneumonic effusions bilaterally. 3. Increased hepatic metastatic disease. Increased ascites. 4. Severe diffuse skeletal metastases. Dictated by: Otilio León M.D. on 01/13/2017 at 12:57 Assessment & Plan 66-year-old lady with past medical history of metastatic breast cancer( extensive metastases to liver and bone) presented to emergency room due to Nausea, vomiting,Generalized weakness and Lightheadedness, confusion of few days # Intractable nausea and vomiting ,acute,poa -due to liver mets and adverse effects of nitrofurointoin vs othres -IV fluids 150 ml/h -zofran and reglan prn -urinalysis no pyuria # Acute hypoxic respiratory failure,poa -Due to progression of metastatic breast cancer versus HCAP -Patient remained tachycardic despite IV fluid rehydration. She also has slightly worsened dyspnea with increased oxygen requirement. She is using 4.5 L of oxygen and sats low 90's. Never used any oxygen at home. required 2L to sat 94 on arrival . D-dimer checked and markedly elevated at [address] which is negative for PE.gave a dose of therapeutic lovenox awaitng CTA -patient is afebrile but wbc 11.2 today ,up from admission wbc 7.9. procal 1.05 but can as well be due to cancer .will start zosyn to cover for HCAp given additional CT finding of possible pna, -progression of metastatic disease also possible. Patient does not want to discuss code status ,prognosis and goals of care at this point. She states she would prefer to discuss with Dr. William. Tried multiple times. Will defer to her oncologist Dr William. We will consider palliative consult after he see her tomorrow # markedly elevated d-dimer -negative CTA -will do LE duplex # hepatic encephalopathy ,acute,poa, improving -due to liver mets -elevated ammonia at 165 initially. Now improving. Patient had 2 episodes of loose stool overnight -lactlose tid , titrate to 2-3 bowel movements a day -CT brain negative # dehydration with lactic acidosis ,acute,poa resolved -IV fluids -zofran and reglan prn # metastatic breast cancer( extensive metastases to liver and bone) -Paracentesis requested by oncology but insufficient fluid on ultrasound -per Dr William # ppx lovenox default full code . patient does not want to think or make decision for now inpatient VTE Prophylaxis: Sub-Q Enoxaparin Justo Moon MD Jan 13, 2017 14:42
--- NOTE | 2017-01-13 15:39 | NUR ---
CT Scan Pt agreed to CT scan today, to which pt states vomitting. Resulted pneumonia and change in metastasis, IV Piperacillin to start today. Care ongoing.
[2017-01-13] MEDS: Piperacillin-Tazo 3.375 Gm Inj 3.375 GM in Dextrose 5% Minibag Plus 50 ML IV SCH (16:44)
--- NOTE | 2017-01-13 17:34 | NUR ---
SPO2 Pt SPO2 down to 88% while sleeping on 2L O2 NC; cont pulse ox placed and O2 turned up to 4LO2 NC, SPO2 up to 91%. Respiratory therapy called. Care ongoing.
[2017-01-13] MEDS ORDERED: Albuterol-Ipratropium 3 mL Inhalation Solution NEB PRN (17:45)
[2017-01-13] MEDS ORDERED: Furosemide 10 mg/mL 4 mL Inj IVPUSH ONE (17:45)
--- NOTE | 2017-01-13 18:24 | NUR ---
SPO2 MD notified of pt's O2 needs; Nebs ordered PRN; 1 time dose 40mg IV Lasix given. Pt placed on 4L O2 Oxymask with cont pulse ox in place. Care ongoing.
[2017-01-13] MEDS: Fluticasone-Salmeterol 100-50 Inhaler INHALATION SCH (19:32)
[2017-01-14] VITALS (9 sets, daily range): BP systolic 107–124; BP diastolic 70–78; PULSE 103–118; RESP 16–20; O2SAT 91–94
[2017-01-14] MEDS: Piperacillin-Tazo 3.375 Gm Inj 3.375 GM in Dextrose 5% Minibag Plus 50 ML IV SCH ×3 (00:59→16:53)
[2017-01-14] MEDS: HYDROmorphone 1 mg/mL Inj IVPUSH PRN ×3 (03:34→22:09)
--- NOTE | 2017-01-14 06:32 | NUR ---
resp: pt. requiring 6 L02 oxymask to keep sats 92%, has dry, nonproductive cough.
[2017-01-14] MEDS: Fluticasone-Salmeterol 100-50 Inhaler INHALATION SCH ×2 (08:29→20:30)
[2017-01-14] MEDS: Lactulose 20 Gm/30 mL 30 mL Syrup PO SCH ×3 (08:30→20:30)
[2017-01-14] MEDS: Acyclovir 400 mg Tablet PO SCH (08:31)
[2017-01-14] MEDS ORDERED: oxyCODONE ER 10 mg ER12 Tablet PO SCH (11:10)
--- NOTE | 2017-01-14 14:25 | PCM.ADCARE ---
Advance Care Planning Note Purpose of Encounter: determine code status and goals of care Parties in Attendance: patient and me Decisional Capacity: good Subjective: Patient states she is progressively getting weak. She also has dyspnea. She is coming in to terms with her current situation. She has been reluctant to discuss her CODE STATUS in the last 2 days. She states she is guardian of 2 grandkids age < 5 from her middle son who is in long term . Objective: Patient tachypneic, tachycardic, requiring 8 L of oxygen. No oxygen requirement few days ago. In mild respiratory distress not using accessory muscles Basilar rhonchi Tachycardic no murmur Distended abdomen mild tenderness on epigastric area Alert and oriented 3. Goals of Care Determinations: # Patient's goal has been to live as long as possible for her grandkids but now she feels she has to accept the reality . She understands the gravity of the situation and how aggressive her cancer is .she doesnot want to be resuscitated. Change CODE STATUS to DNR/DNI. But she would like to talk to Dr. Benavidez about whether to pursue further chemotherapy or not. she names her daughter Luis Alberto as POA tel [phone] # I also discussed case with Dr benavidez after this. he thinks she will live only days to weeks given rapidity increasing bilirubin and clinical deterioration. He does not plan to give her chemotherapy. He agrees for palliative consult. he is at [facility] clinic today. He will see her tomorrow. He wants to trend today and tomorrow. If bilirubin continues to trend up he feels that she should be comfort care/hospice. Plan: Consult palliative care CODE STATUS: DNR/DNI Time Spent Adv.Care Plannin minutes Justo Moon MD Jan 14, 2017 14:25
[2017-01-14 14:31] LABS: BASOPHILS % (AUTO) 0.5 % (0-3); EOSINOPHILS % (AUTO) 0.3 % (0-5); MONOCYTES % (AUTO) 21.4 % (4-12); Mean Corpuscular Hemoglobin 33.4 pg (27.0-35.0); Mean Corpuscular Volume 95.8 fL (81-100); NEUTROPHILS % (AUTO) 65.9 % (40-74); Platelet Count 166 bil/L (150-400)
--- NOTE | 2017-01-14 14:59 | NUR ---
NUTRITION ASSESSMENT: ASSESS: 66 YO female presents with nausea and vomiting x 1-1/2 weeks, generalized weakness, lightheadedness and confusion for several days. Intractable nausea, vomiting and hepatic encephalopathy due to liver mets and adverse effects of nitrofurointoin improved. CT brain negative. Pt appears to have likely days to weeks to live with MD reports indicating pt appropriate for comfort care if bilirubin continues to rise with progressive cancer mets. Pt code status modified to DNR/DNI with palliative consulted. PMHx: Metastatic breast cancer with liver and osseous involvement, diagnosed September 2015, just starting Ibrance, asthma, PTSD. DIET: General. PO bites-25% LABS: Reviewed. Alb 2.5,Pro 5.2,Alk Phos 274, Ammonia 98 MEDICATIONS: Reviewed. Lactulose, dilaudid, reglan, zofran. NUTRITION FOCUSED PHYSICAL ASSESSMENT: GI symptoms / stool: Diarrhea noted. Nick: 20. Skin Integrity: No issues reported. ANTHROPOMETRICS: Current Wt: 89.2 kg BMI: 29.9 kg/m2. IBW: 47.8 kg (173.1% IBW) ESTIMATED NEEDS (CANCER): Calories: 2068 - 2482 kcal (25 - 30 kcal / kg BW) Protein: 83 - 124 g protein (1.0 - 1.5 g / kg BW) NUTRITION DIAGNOSIS: 1)Inadequate oral intake related to depressed appetite as evidenced by minimal intake of bites-25% x 3 days. INTERVENTION: 1) Continue Ensure and yogurt to trays. MONITOR/EVALUATE: PO intake, palliative recommendations and POC, at this time nutrition support does not appear appropriate, will follow along to make recommendations based on pt overall POC. F/U per high risk
--- NOTE | 2017-01-14 15:13 | PCM.PNMED ---
Subjective Date of Service Jan 14, 2017 Subjective Continues to have generalized weakness and dyspnea. Requiring 8L of oxygen currently. Exam Vital Signs Vital Sign - Last Date Time Temp Pulse Resp B/P Pulse Ox O2 Delivery O2 Flow Rate FiO2 01/14/17 13:43 36.6 108 19 120/78 91 OxyMask 7.00 Intake and Output 01/13/17 01/13/17 01/14/17 Cumulative From/Thru 14:59 22:59 06:59 01/11/17 12:48 - 01/14/17 06:48 Intake Total 270 ml 636 ml 7930 ml Output Total 650 ml 1450 ml 2660 ml Balance -380 ml -814 ml 5270 ml Intake Oral 270 ml 636 ml 3486 ml IV Total 4444 ml Output Urine Total 550 ml Urine/Stool Mix 650 ml 1450 ml 2110 ml # Voids 5 5 # Bowel Movements 4 Exam Gen. In mild respiratory distress with tachypnoea HEENT: Head is normocephalic atraumatic, dry tongue Lungs rhonchi on lower chest Heart regular rate and rhythm without murmurs gallops or rubs Abdomen soft , distended, nontender Extremities pulses are present dorsalis pedis posterior tibialis and radial. tSkin is warm and dry there are no rashes, Psych alert and oriented to person place and time Neuro cranial nerves II through XII are grossly intact Lymph: There is no lymphadenopathy appreciated in the cervical supra infraclavicular regions : no mejía IVs and Medications Medications Reviewed: Medications were reviewed in detail Lab and Diagnostics Result Diagram: 01/14/17 1423 01/14/17 1423 X-Rays, CTs and MRIs PROCEDURE: CT BRAIN WITHOUT CONTRAST ([id number]) INDICATIONS: altered LOC, h/o met CA IMPRESSION: No acute intracranial abnormality. Dictated by: Gonzales Jerome M.D. on 01/11/2017 at 12:43 PROCEDURE: US ABDOMEN, LIMITED ([id number]) INDICATIONS: Ascites, liver disease due to metastatic breast ca IMPRESSION: Ascites. Mild ascites is insufficient for paracentesis. Dictated by: Kathrine Giron MD, PhD on 01/12/2017 at 10:37 PROCEDURE: CT ANGIO CHEST PULMONARY EMBOLISM ([id number]) INDICATIONS: r/o PE ,d-dimer 23 IMPRESSION: 1. No pulmonary embolus. 2. Bilateral pneumonia with small parapneumonic effusions bilaterally. 3. Increased hepatic metastatic disease. Increased ascites. 4. Severe diffuse skeletal metastases. Dictated by: Otilio León M.D. on 01/13/2017 at 12:57 Assessment & Plan 66-year-old lady with past medical history of metastatic breast cancer( extensive metastases to liver and bone) presented to emergency room due to Nausea, vomiting,Generalized weakness and Lightheadedness, confusion of few days # Acute hypoxic respiratory failure,poa -Due to hepatopulmonary syndrome versus HCAP -Patient remained tachycardic despite IV fluid rehydration. She also has worsened dyspnea with increased oxygen requirement. She is using 8 L of oxygen and sats low 90's. Never used any oxygen at home. required 2L to sat 94 on arrival . D-dimer checked and markedly elevated at [address] which is negative for PE.gave a dose of therapeutic lovenox awaitng CTA -patient is afebrile but wbc 11.2 today ,up from admission wbc 7.9. procal 1.05 but can as well be due to cancer .will start zosyn to cover for HCAp given additional CT finding of possible pna, -progression of metastatic disease also possible. -discussed with Dr William ,HCAP unlikely . Most likely patient developing hepatopulmonary syndrome given rapidly worsening liver function test and up trending bilirubin. Continue IV antibiotics for now -oxycodone po for pain ordered but patient declined using it # markedly elevated d-dimer -negative CTA -will do LE duplex -most liley due to cancer # hepatic encephalopathy ,acute,poa, improved -due to liver mets -elevated ammonia at 165 initially. Now improving. -lactlose tid , titrate to 2-3 bowel movements a day -CT brain negative # dehydration with lactic acidosis ,acute,poa resolved -IV fluids -zofran and reglan prn # Intractable nausea and vomiting ,acute,poa, improved -due to liver mets -Treated with IV fluids -zofran and reglan prn -urinalysis no pyuria # metastatic breast cancer( extensive metastases to liver and bone) -Paracentesis requested by oncology but insufficient fluid on ultrasound -Dr William states he is now planning to give her any chemotherapy given rapidly increasing bilirubin. He thinks patient needs to be comfort care . Consulted palliative care . # ppx lovenox DNR/DNI names her daughter Luis Alberto PLATT tel [phone] inpatient VTE Prophylaxis: Sub-Q Enoxaparin VTE Mechanical Devices: Intermittant Pneumatic CD Justo Moon MD Jan 14, 2017 15:13
--- NOTE | 2017-01-14 15:51 | DRSVH ---
PROCEDURE: US VENOUS LEG DUPLEX BILATERAL INDICATIONS: elevated d-dimer TECHNIQUE: Real-time imaging, as well as color and pulse Doppler interrogation, were performed of the deep veins of both legs from the inguinal ligament to the popliteal fossa. COMPARISON: None. FINDINGS: The deep veins are normally compressible, and free of intraluminal thrombus. Color and pu lse Doppler demonstrate normal phasic intravascular flow. There is normal augmentation response to d istal compression maneuver. IMPRESSION: No deep venous thrombosis identified within either the left or right lower extremities. Dictated by: Corey Mclaughlin [facility] Interpreted: Yari Lee MD on 01/14/2017 at 9:20 Approved by: Yari Lee M.D. on 01/14/2017 at 15:49
--- NOTE | 2017-01-14 17:29 | NUR ---
Social Work: Initial Assessment/Multi-Disciplinary Rounds D: EMR reviewed. Please see Initial Assessment linked to this note for more information. Pt is a 66 [facility] [place] [facility] [place] [facility] per H&P. Pt's insurance is Medicare and Medicaid. PCP is Rebecca Johnson PA-C. SW met with pt at bedside to conduct initial assessment. Pt was alert and oriented x3. SW explained role and wrote phone number on white board. SW provided [facility] Discharge Planning Checklist and encouraged pt to contact SW for any discharge planning questions. Pt discussed in multidisciplinary rounds. Pt is not medically stable for discharge at this time, anticipate 3-4 more days. Pt is on 5-8 L O2 at [facility]. Palliative following. Oncology following. No SW needs at this time - continue to follow, no MD orders received. A: Pt who is independent at baseline P: Evolving; following for Palliative and Oncology recommendations at this time. LATRICE Kwong Addendum: 01/14/17 at 1735 by TAB ROSALES Amended: Links added.
--- NOTE | 2017-01-14 18:43 | NUR ---
Mentation, Pain, Lactulose Refusal Patient alert and oriented this shift. Patient refusing lactulose, hospitalist aware. Patient does have some intermittent pain, resolved with ordered pain medications. Care is ongoing.
[2017-01-14] MEDS: Ondansetron 2 mg/mL 2 mL Inj IVPUSH PRN (22:03)
[2017-01-15] VITALS (7 sets, daily range): BP systolic 110–143; BP diastolic 66–76; PULSE 114–121; RESP 16–20; O2SAT 92–93
[2017-01-15] MEDS: Piperacillin-Tazo 3.375 Gm Inj 3.375 GM in Dextrose 5% Minibag Plus 50 ML IV SCH ×3 (01:03→18:04)
[2017-01-15] MEDS: HYDROmorphone 1 mg/mL Inj IVPUSH PRN ×2 (03:37→08:54)
--- NOTE | 2017-01-15 03:54 | NUR ---
Activity Patient experiencing some urgency to the bathroom / diarrhea, otherwise using call light appropriately. c/o abdominal pain, relieved by medication. Sating in low 90's% on 6-7L O2. Unsteady on feet, requiring SBA to BSC. Care continues.
[2017-01-15] MEDS ORDERED: Potassium Chloride 20 mEq SR Tablet PO ONE (08:05)
[2017-01-15] MEDS: Lactulose 20 Gm/30 mL 30 mL Syrup PO SCH ×4 (08:30→21:45)
[2017-01-15] MEDS: Fluticasone-Salmeterol 100-50 Inhaler INHALATION SCH ×2 (08:37→21:46)
[2017-01-15] MEDS: Acyclovir 400 mg Tablet PO SCH (09:22)
--- NOTE | 2017-01-15 11:11 | NUR ---
Palliative Care Verbal order received from Dr Moon 01/14/17 to assist with goals of care. Patient admitted 01/11/17. Marylin (daughter) [phone] Palliative Care to follow. Lolita Dumont
[2017-01-15] MEDS ORDERED: HYDROmorphone 1 mg/mL Inj IVPUSH PRN (12:30)
--- NOTE | 2017-01-15 12:52 | PCM.PALLBR ---
Palliative Brief Note Date of Service Jan 15, 2017 . Palliative consultation requested by Dr. Moon following his consultation with the patient's primary oncologist, Dr. William. Unfortunate 66-year-old female with metastatic breast cancer now with progressive hepatic failure as a consequence of her metastatic disease. Today, when I arrived to speak with the patient, she was lying in bed and was tearful. She said that she did not want to talk to anybody today and wanted to be allowed to rest. I inquired if there was anything that I could do to help- whether with pain, other needs, questions she had, etc. I was able to get some lemon/ouzinkie soda and ice for her and helped her get arranged in bed so that she could drink and she expressed appreciation for this. She did note that at times she had inadequate pain control and so at her request I did make some modifications to her regimen. She requested that I return tomorrow to talk further. She expected that Dr. William would visit at midday today. I reviewed the above with Dr. Moon and will plan on further follow-up tomorrow. Time spent today 30 minutes, greater than 50% at bedside and in direct contact with her other caregivers. Darren Galvan MD Jan 15, 2017 12:52
[2017-01-15] MEDS: HYDROmorphone 0.5 mg/0.5 mL iSecure Syringe IVPUSH PRN ×4 (13:43→21:46)
--- NOTE | 2017-01-15 14:13 | PCM.PNMED ---
Subjective Date of Service Jan 15, 2017 Subjective continues to have worsening dyspnea,generalized weakness, Exam Vital Signs Vital Sign - Last Date Time Temp Pulse Resp B/P Pulse Ox O2 Delivery O2 Flow Rate FiO2 01/15/17 13:24 36.6 120 18 116/67 93 OxyMask 7.00 Intake and Output 01/14/17 01/14/17 01/15/17 Cumulative From/Thru 15:00 23:00 07:00 01/11/17 12:48 - 01/15/17 05:51 Intake Total 300 ml 736 ml 8966 ml Output Total 400 ml 300 ml 3360 ml Balance -100 ml 436 ml 5606 ml Intake Oral 300 ml 400 ml 4186 ml IV Total 336 ml 4780 ml Output Urine Total 300 ml 850 ml Urine/Stool Mix 400 ml 2510 ml # Voids 5 10 # Bowel Movements 4 Exam Gen. In mild respiratory distress with tachypnoea HEENT: Head is normocephalic atraumatic, dry tongue Lungs rhonchi on lower chest Heart regular rate and rhythm without murmurs gallops or rubs Abdomen soft , distended, nontender Extremities pulses are present dorsalis pedis posterior tibialis and radial. tSkin is warm and dry there are no rashes, Psych alert and oriented to person place and time Neuro cranial nerves II through XII are grossly intact Lymph: There is no lymphadenopathy appreciated in the cervical supra infraclavicular regions : no mejía IVs and Medications Medications Reviewed: Medications were reviewed in detail Lab and Diagnostics Result Diagram: 01/14/17 1423 01/15/17 0547 X-Rays, CTs and MRIs PROCEDURE: CT BRAIN WITHOUT CONTRAST ([id number]) INDICATIONS: altered LOC, h/o met CA IMPRESSION: No acute intracranial abnormality. Dictated by: Gonzales Jerome M.D. on 01/11/2017 at 12:43 PROCEDURE: US ABDOMEN, LIMITED ([id number]) INDICATIONS: Ascites, liver disease due to metastatic breast ca IMPRESSION: Ascites. Mild ascites is insufficient for paracentesis. Dictated by: Kathrine Giron MD, PhD on 01/12/2017 at 10:37 PROCEDURE: CT ANGIO CHEST PULMONARY EMBOLISM ([id number]) INDICATIONS: r/o PE ,d-dimer 23 IMPRESSION: 1. No pulmonary embolus. 2. Bilateral pneumonia with small parapneumonic effusions bilaterally. 3. Increased hepatic metastatic disease. Increased ascites. 4. Severe diffuse skeletal metastases. Dictated by: Otilio León M.D. on 01/13/2017 at 12:57 Assessment & Plan 66-year-old lady with past medical history of metastatic breast cancer( extensive metastases to liver and bone) presented to emergency room due to Nausea, vomiting,Generalized weakness and Lightheadedness, confusion of few days # Acute hypoxic respiratory failure,poa -Due to hepatopulmonary syndrome versus HCAP -Patient remained tachycardic despite IV fluid rehydration. She also has worsened dyspnea with increased oxygen requirement. She is using 8 L of oxygen and sats low 90's. Never used any oxygen at home. required 2L to sat 94 on arrival . D-dimer checked and markedly elevated at [address] which is negative for PE.gave a dose of therapeutic lovenox awaitng CTA -patient is afebrile but wbc 11.2 today ,up from admission wbc 7.9. procal 1.05 but can as well be due to cancer . started zosyn to cover for HCAp given additional CT finding of possible pna, -discussed with Dr William ,HCAP unlikely . Most likely patient developing hepatopulmonary syndrome given rapidly worsening liver function test and up trending bilirubin. Continue IV antibiotics for now -oxycodone po for pain ordered but patient declined using it -consulted palliative # markedly elevated d-dimer -negative CTA -LE duplex negative -most liley due to cancer # hepatic encephalopathy ,acute,poa, improved -due to liver mets -elevated ammonia at 165 initially. Now improving. -lactlose tid , titrate to 2-3 bowel movements a day -CT brain negative # dehydration with lactic acidosis ,acute,poa resolved -IV fluids -zofran and reglan prn # Intractable nausea and vomiting ,acute,poa, improved -due to liver mets -Treated with IV fluids -zofran and reglan prn -urinalysis no pyuria # metastatic breast cancer( extensive metastases to liver and bone) -Paracentesis requested by oncology but insufficient fluid on ultrasound -Dr William states he is now planning to give her any chemotherapy given rapidly increasing bilirubin. He thinks patient needs to be comfort care . Consulted palliative care . # ppx lovenox DNR/DNI names her daughter Luis Alberto PLATT tel [phone] inpatient VTE Prophylaxis: Sub-Q Enoxaparin VTE Mechanical Devices: Intermittant Pneumatic CD Justo Moon MD Jan 15, 2017 14:13
--- NOTE | 2017-01-15 16:42 | NUR ---
Social Work- Continued D/C Planning/Multidisciplinary Rounds Data: EMR reviewed. Pt is on day 4 of hospitalization. Pt discussed at bedside multidisciplinary rounds, Hospitalist explained that pt is not a candidate for chemotherapy and prognosis is poor, likely weeks. Pt is requiring O2 in hospital, no O2 needed at baseline. SW asked to speak with pt regarding hospice/end of life plans. Oncology to see patient today as well. Prior to admission, pt lived in [place] in a home where she was the primary guardian and caregiver of her two grandchildren. These children are living with pt's daughter Marylin Haas, . Pt reports that her daughter is DPOA. SW met with pt this evening after Oncology met with pt. Pt briefly questioned if there were dogs barking, per RN notes this is not new. Pt A and Ox3 otherwise. SW discussed goals with pt, pt described potential for chemotherapy prior to hospice. Oncology's note not entered at this time, unclear if this is a new plan of care from Oncology or pt's understanding of the situation is unclear. Pt could not describe more information re: chemo (palliative or curative, timeline, if it is happening in the hospital, etc). Discussed in general terms hospice, what hospice means, and the options surrounding it (facility vs. home vs. hospice house). Pt seemed to follow to conversation appropriately, expressed that her goal would be to be in her daughters apartment in [place] in the guest bedroom where she would "feel safe." Pt was hesitant about [facility] as she is worried that [place] is too far away from [place] for her family to travel. Pt did not comment expressly on the possibility of SNF, stated that she was tired and appeared overwhelmed by all this information. SW validated this. SW explained the possibility of a hospice informational visit in the hospital for more information. Pt again expressed how overwhelmed she was but as agreeable to MANAGER SECONDARY leaving the list of hospice organizations with pt to aid in her decisions. SW will continue to follow pt closely, pt is agreeable to this and requested that MANAGER SECONDARY return tomorrow for additional conversation and support. Assessment: Pt who was previously independent with ADLs and self-care, now presenting with poor prognosis and need for assistance with self-care Plan: Pt aware of option for in home hospice, potential facility placement, Hospice House. Pt may be receiving chemotherapy prior to discharge. No decisions have been made by patient in terms of end of life plan of care. SW will continue to follow closely during this admission. LATRICE Turner
--- NOTE | 2017-01-15 17:11 | PROG NOTE ---
[address] [address] PROGRESS NOTE PATIENT: ROBERT RAMIREZ : 1950 MR#: [id number] ADMIT: 01/11/2017 JOB ID: [id number] DATE: 01/15/2017 INPATIENT MEDICAL ONCOLOGY PROGRESS REPORT: DIAGNOSIS: Progressive hepatic failure secondary to extensive metastatic breast cancer, associated with ascites, jaundice, and hepatic encephalopathy. SUBJECTIVE: Today she is very uncomfortable due to large ascites. She reports intermittent cough, major dyspnea, and is very emotional about her poor prognosis and limited treatment options. She is requesting to try palliative chemotherapy. OBJECTIVE: Overall awake, alert, and oriented x3, but very weak and mostly bed-bound. Blood pressure 116/67, heart rate 120, temperature afebrile, O2 saturation 93% on OxyMask. Abdomen is moderate to severely distended with palpable ascites. LABORATORY DATA: CBC is normal other than borderline leukocytosis. Bilirubin has increased to 6.4 but relatively stable over the last three days. AST and ALT continue to rise. Alkaline phosphatase elevated at 288 and relatively stable. Albumin is 2.4. Renal function is normal. INR was 1.38 on January 11. IMPRESSION AND PLAN: 1. Metastatic breast cancer extensively involving the liver, associated with progressive hepatic failure. Her prognosis is very poor. After much conversation, given that her only chance of survival is palliative chemotherapy, she would like to proceed with that despite the risks. I think it would be reasonable to try dose reduced single agent Doxil chemotherapy for this patient. The regular dose would be 50 mg/m2 in a patient with normal liver function, but for her we will try with 50% dose reduction at 25 mg/m2. I will place an order for PICC line placement tonight or tomorrow morning and plan to provide chemotherapy, which only would take 30 minutes, tomorrow. We discussed potential exaggerated side effects including mucocutaneous toxicity, nausea, and myelosuppression. She would like to proceed. 2. Severe ascites. Will recheck abdominal ultrasound tomorrow and will drain fluid for diagnostic and therapeutic reasons. I will also place an order to start at low dose furosemide and spironolactone diuretics. 3. I will return tomorrow for followup. 4. The patient is DO NOT RESUSCITATE/DO NOT INTUBATE.
--- NOTE | 2017-01-15 17:25 | NUR ---
Pain, Medication Refusal Patient continues to have some pain to the abdomen this shift. Pain responds to ordered IV medications, but patient declines scheduled or PRN oral pain medications at this time, as well as declining lactulose. Hospitalist made aware, care is ongoing.
[2017-01-16 00:15] VITALS: PULSE 114
[2017-01-16 00:40] VITALS: BP 110/70; PULSE 117; RESP 20
[2017-01-16] MEDS: Piperacillin-Tazo 3.375 Gm Inj 3.375 GM in Dextrose 5% Minibag Plus 50 ML IV SCH ×3 (00:41→15:47)
[2017-01-16] MEDS: HYDROmorphone 0.5 mg/0.5 mL iSecure Syringe IVPUSH PRN ×4 (00:41→10:29)
--- NOTE | 2017-01-16 05:22 | NUR ---
Activity Pt continues to refuse PO medications. Rec'ing IV Dilaudid for pain management. C/o pain 8 out of 10 to abdomen area. Observed impulsive behaviors, not appropriate with call light- SBA to BSC. Also observed confusion/forgetfulness, easily re-orients. Pt on 6-7L via Oxymask. Sats low 90's.
[2017-01-16 05:45] VITALS: BP 122/70; PULSE 114; RESP 19
[2017-01-16 06:43] LABS: BASOPHILS % (AUTO) 0.3 % (0-3); EOSINOPHILS % (AUTO) 0.2 % (0-5); MONOCYTES % (AUTO) 25.7 % (4-12); Mean Corpuscular Hemoglobin 33.1 pg (27.0-35.0); Mean Corpuscular Volume 95.4 fL (81-100); NEUTROPHILS % (AUTO) 62.2 % (40-74); Platelet Count 174 bil/L (150-400)
[2017-01-16 07:10] LABS: INR 1.84 ratio
[2017-01-16 07:50] LABS: D-Dimer 33.43 mg/L FEU (<0.50)
[2017-01-16 08:05] VITALS: BP 117/80; PULSE 105; RESP 20
[2017-01-16] MEDS: Fluticasone-Salmeterol 100-50 Inhaler INHALATION SCH ×2 (08:13→19:52)
[2017-01-16] MEDS: Lactulose 20 Gm/30 mL 30 mL Syrup PO SCH ×3 (08:14→19:53)
[2017-01-16] MEDS: Acyclovir 400 mg Tablet PO SCH (08:19)
--- NOTE | 2017-01-16 09:09 | DRSVH ---
PROCEDURE: US ABDOMEN, LIMITED ([id number]) INDICATIONS: THERAPEUTIC AND DIAGNOSTIC TECHNIQUE: Real-time focused scanning was performed of the abdomen, with image documentation. COMPARISON: [facility], , [facility], 01/12/2017, 10:10. FINDINGS: There is a moderate amount of ascites is seen. IMPRESSION: Moderate ascites, which does not justify doing a paracentesis given the increased INR at 1.84. Note: Concordant preliminary findings given by the human resources assistant upon the completion of the examination to Dr. William at 8:30 AM on January 16, 2017. Dictated by: Gabe Gonsales M.D. on 01/16/2017 at 9:05 Approved by: Gabe Gonsales M.D. on 01/16/2017 at 9:06
[2017-01-16 09:13] VITALS: PULSE 108
--- NOTE | 2017-01-16 12:04 | PCM.CONPAL ---
Date of Service Jan 16, 2017 Date of Hospital Admission: Jan 11, 2017 at 14:51 Date of Palliative Consult: Jan 16, 2017 Requesting Provider: Justo Moon MD Reason Palliative Care Consult: Pain, Goals of Care Discussion Hospital Unit @time of consult: Orthopedic/Surgical Care Palliative Care Recommendation Unfortunate 66-year-old lady with metastatic estrogen receptor positive breast cancer, admitted with progressive hepatic failure with encephalopathy, coagulopathy, etc. Palliative medicine consulted to assist with symptom management and review of goals of care. Patient requested DNR/DNI status several days prior to palliative consultation as she continued to deteriorate, but has also requested continued palliative chemotherapy in hopes that it will buy her some more time so that she can complete arrangements for her family. Summary of palliative recommendations: -Symptom management (Pain/other)- she has been reluctant to use pain medications despite ongoing discomfort (see below for details). For now she only wants to continue to use IV hydromorphone 0.5 mg every 2 hours as needed. We will continue to follow and adjust pain medications as needed. Continue prn lorazepam and ondansetron as well. -DPOA/Advanced Directives/POLST- DNR/DNI per conversations with her hospitalist earlier in the week. Not ready to transition to hospice care as she is initiating palliative chemotherapy today or tomorrow. Will plan on assisting her in completing a POLST prior to discharge. -Family/emotional support- reportedly good support from family members (none available for discussion today) Additional Medical Diagnoses with primary management by Hospitalist team include : # Acute hypoxic respiratory failure,poa # Possible HCAP, infectious disease consultation pending # hepatic encephalopathy ,acute,poa, improved # dehydration with lactic acidosis ,acute,poa resolved # Intractable nausea and vomiting ,acute,poa, improved # metastatic breast cancer( extensive metastases to liver and bone) Problems: End of Life Preferences DNR/DNI Goals of Care Patient hopes to stabilize and then recover sufficiently to return to her daughter's home in [place] Disposition To be determined Resuscitation Status Resuscitation Status: DNR/DNI:Do Not Resuscitate/Intubate POLST Updates/Changes Previous POLST?: No . Pain: Moderate Symptom management: Anxiety, Pain Pt History History of Present Illness Per admission H&P: 66-year-old lady with past medical history of metastatic breast cancer( extensive metastases to liver and bone) presented to emergency room due to above complaints She states she had UTI 2 weeks ago and was given antibiotics from [facility]. erx records nitrofurantoin. Nitrofurantoin listed as allergy here She states she has been having repeated episodes of nausea and vomiting since starting the antibiotic. She has poor oral intake. She continued to have nausea vomiting and developed generalized weakness with lightheadedness. She was seen a week ago with oncology and planned to start new chemotherapy given progression of disease. Patient did not show up for chemotherapy before yesterday. Dr. William called her last night to check why she missed chemotherapy. per ED note She was reportedly was confused when she spoke to him last night. Patient states she remembers talking to him but is not sure if she was confused ED course : Ct brain unremarkable. Elevated LFTs and ammonia noted. Lactulose given in ED. Admission requested for hepatic encephalopathy Since admission, patient has had further deterioration with rising LFTs, recurrent/worsening ascites, progressive coagulopathy etc. there has also been concern of possible HCAP, and Dr. Zapata of infectious diseases been consulted. Decision has been made to proceed with palliative chemotherapy though at reduced dose (in hopes of decreasing risk of complications). Patient to have PICC line placed today for initiation of Doxil single agent palliative chemotherapy. She had progressive fatigue, anorexia, abdominal discomfort, dyspnea in the weeks prior to admission. Per Dr. William's note of 01/04/17 she was: initially treated with single-agent letrozole to which palbociclib was added shortly afterwards but she did not respond. Repeat liver biopsy showed ESR1 mutation. She was given one cycle of gemcitabine in June 2016, and has been on Faslodex plus palbociclib since August 2016. Palliative medicine consulted to assist in symptom management and review of goals of care. When patient was admitted she was full code but as she has deteriorated, in consultation with her hospitalists and Dr. William, made the decision to change CODE STATUS to DNR/DNI. She feels very strongly, though, that she wants to try some life-prolonging treatment, and so she has fervently requested palliative chemotherapy, even given the limited probability of its success. When I visited today, she was lying in bed but was awake and alert. She did not appear to be in any discomfort but noted that at its worst her pain is 8/10 and even after receiving IV hydromorphone decreases to only 7/10. She has been refusing oral hydromorphone because she is afraid it will make her sleepy or nauseated. She reports very significant nausea earlier with oral morphine. She says that Dr. William gave her a prescription for oral hydromorphone but she has not yet tried using it. I talked with her carefully about pain management and be enhanced pain control that we might achieve if she were willing to take even some low dose, regularly scheduled hydromorphone but she remains very reluctant and ultimately refused. She wishes to continue to use the IV hydromorphone at its current dose and with its current timing for now. We reviewed her history briefly. She notes that her daughter Marylin is her POA and that she plans to go to [place] to live with Marylin when she is discharged from the hospital. She has 2 sons, Connor and Jennifer who live locally as well and who have been very supportive. She feels that she must survive for a while because she has to close up her financial affairs so as to help her family and spare them from distress. 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 Social Support: Good support from her family Living Situation: Lives in her own home with acreage in [facility] Palliative Performance Scale PPS Patient Status: Baseline PPS Ambulation: Reduced PPS Activity: Unable to do most activity PPS Self-Care: Full Self Care PPS Intake: Normal or reduced PPS Conscious Level: Full or confusion Performance Scale: 50% ADLs ADL Patient Status: Baseline ADL Ambulation: Reduced ADL Dressing: Full ADL Feeding: Full ADL Hygene/bathing: Full ADL Transfers: Full Allergy Allergies Reviewed: Yes Medications Current Medications: Current Medications Oxycodone HCl 5 mg TID PO; Start 01/14/17 at 12:00; Stop 01/15/17 at 10:40; Status DC Hydromorphone HCl 4 mg Q6 PO; Start 01/15/17 at 14:30; Stop 01/16/17 at 09:19; Status DC Hydromorphone HCl 0.5 mg Q2H PRN IVPUSH; Start 01/15/17 at 12:30; Stop at 12:30; Status DC Hydromorphone HCl 0.5 mg Q2H PRN IVPUSH Last administered on 01/16/17 10:29; Admin Dose 0.5 MG; Start 01/15/17 at 10:45; Stop 01/16/17 at 10:55; Status DC Furosemide 20 mg DAILY PO Last administered on 01/15/17 18:03; Admin Dose 20 MG ; Start 01/15/17 at 16:14 Spironolactone 25 mg DAILY PO Last administered on 01/15/17 18:03; Admin Dose 25 MG; Start 01/15/17 at 16:14 Calcium Carbonate 500 mg PRN PRN PO Last administered on 01/16/17 10:29; Admin Dose 500 MG; Start 01/16/17 at 09:20 Hydromorphone HCl 0.5 mg Q2H PRN IVPUSH; Start 01/16/17 at 10:55 Scheduled Acyclovir (Acyclovir) 400 Mg Tablet 400 MG PO DAILY Mometasone/Formoterol (Dulera 100 Mcg/5 Mcg Inhaler) 13 Gm Hfa.aer.ad 2 PUFFS IH BID Scheduled PRN Hydromorphone (Hydromorphone) 2 Mg Tablet 2 MG PO QID PRN PRN For Pain Lorazepam (Lorazepam) 1 Mg Tablet 1 MG PO TID PRN PRN For Anxiety Ondansetron ODT (Ondansetron ODT) 8 Mg Tab.rapdis 8 MG PO Q12H PRN PRN For Nausea Objective Findings Exam Vital Sign - Last Date Time Temp Pulse Resp B/P Pulse Ox O2 Delivery O2 Flow Rate FiO2 01/16/17 09:13 108 01/16/17 08:05 36.7 20 117/80 OxyMask 7.00 01/15/17 13:24 93 Intake and Output 01/15/17 01/15/17 01/16/17 Cumulative From/Thru 15:00 23:00 07:00 01/11/17 12:48 - 01/16/17 04:29 Intake Total 1100 ml 107 ml 41566 ml Output Total 3360 ml Balance 1100 ml 107 ml 6813 ml Intake Oral 1100 ml 5286 ml IV Total 107 ml 4887 ml Output Urine Total 850 ml Urine/Stool Mix 2510 ml # Voids 5 15 # Bowel Movements 4 Objective Fatigued appearing woman lying in bed. Mildly jaundiced. Oriented and appropriate speaking with me today. Vital signs noted. Head and neck exam without acute focal findings other than her icterus. Lungs clear anterolaterally , heart sounds rapid and regular, abdomen is rounded/mildly distended but not tense. No fluid wave evident. Patient said she thinks her abdomen is actually a little smaller today. Diffuse mild tenderness without peritoneal signs. No pitting edema at the ankles. Lab/Diagnostics Lab and Imaging results reviewed in detail in EMR. Time spent Total time 65 minutes; >50% face to face with patient, providing counselling regarding plans and recommendations, and in care coordination with her medical teams. Darren Galvan MD Jan 16, 2017 12:04 Darren Galvan MD Jan 16, 2017 12:04
--- NOTE | 2017-01-16 12:09 | CONS ---
[address] [address] CONSULTATION REPORT PATIENT: ROBERT RAMIREZ : 1950 MR#: [id number] ADMIT: 01/11/2017 JOB ID: [id number] DATE OF SERVICE: 01/16/2017 INFECTIOUS DISEASE CONSULTATION: I thank Dr. Moon for this timely consult. REASON FOR CONSULTATION: Possible aspiration or nosocomial pneumonia. HISTORY OF THE PRESENT ILLNESS: The patient is an unfortunate 66-year-old woman with metastatic breast cancer with mets to the liver and associated ascites. She was admitted to this facility on January 11 because of nausea, vomiting and confusion which was thought to be on the basis of hepatic encephalopathy which was thought to be on the basis of her advanced metastatic liver disease. During the course of the hospital stay she developed progressive shortness of breath which was not present while she was at home and for that reason, CT scan was undertaken to rule out pulmonary embolism. That CT scan was done on January 13 and showed no evidence of PE but it did show bilateral pleural effusions and some consolidation at the bases. This raised concerns about possible aspiration type pneumonia and the patient was started on Zosyn. She remains on that antibiotic and she is now in her fourth day of Zosyn therapy. Infectious disease consultation is requested regarding whether or not she has an ongoing infection and requires additional antibiotics. Note that the patient was initially going to transition to comfort care and so, I was aware of this case but was not asked to consult because the thought was that no additional treatment would be done. Apparently, over the last 24 hours or so, Dr. William, her oncologist, has decided to proceed with some palliative chemo and for that reason, the question of whether or not to proceed with antibiotics is more acute. Dr. William himself has commented on this case, and he believes that she has hepatopulmonary syndrome producing her shortness of breath rather than infection. The patient is confused this morning and her history is a bit difficult to follow. She reports that she has had some subjective fever and possibly chills. She also notes that she is more short of breath than at baseline. She says she has a dry but productive cough by which I imply that she means a dry cough. She also notes her abdomen is distended. There is little else in the way of history to be gleaned from the patient because of her ongoing encephalopathy. PAST MEDICAL HISTORY: 1. Metastatic breast cancer with involvement of the liver, as well as bones, diagnosed in 2016. 2. History of asthma. 3. History of PTSD. SOCIAL HISTORY: The patient is a nonsmoker and nondrinker. At this point, I cannot ascertain whether or not she smoked in the past. FAMILY HISTORY: Not available, as the patient is currently confused. Notes in the chart indicate her brother from complications from a liver transplant. REVIEW OF SYSTEMS: Done but because of the patient's ongoing confusion I am not sure it is of much value. The patient states she has had no headache, possibly fever and/or chills. Abdominal distention and pain would be our main complaint, as well as some skeletal pain. She says she is short of breath and that is a new thing for her, and that she has a nonproductive cough. Remainder of review of systems was simply not available from this confused patient. PHYSICAL EXAMINATION: Reveals a woman who is awake but confused. Temperature is 36.6, pulse 108, respiratory rate 20, blood pressure 117/80. She is saturating well but requiring 7 L, and recall that she did not use any oxygen at home. The patient's eyes are without conjunctivitis. There is some conjunctival pallor, however. Nose is normal. No temporal wasting is seen. Mucous membranes dry without pharyngitis or thrush. Neck is supple. Lungs with decreased breath sounds, crackles at the bases. Cardiac tones: Regular rate and rhythm without murmur. Abdomen distended with probable ascites. Some hepatomegaly appears to be present in the right upper quadrant but difficult to measure given the distention of the abdomen. She does not have a Cherry. Does not have suprapubic tenderness. Does not have inguinal adenopathy. Lower extremities without edema, synovitis, or cellulitis. She is intact except for ongoing confusion and that she has good motor strength in all four extremities. LABORATORIES: Include white count 13,000, normal neutrophil percentage, however. Her high white count is almost entirely secondary to monocytosis. The patient's creatinine is 0.98. Her LFT are up. Bilirubin 7.3, alk phos 274, ALT 102, AST 407. Pneumonia 128. LDH 850. Urinalysis without white cells. Micro studies include negative blood cultures. IMAGING: Carefully reviewed. We looked at the CT scan in great detail that was done on the . It clearly shows bilateral pleural effusions with some bibasilar infiltrates. Whether these are atelectasis or pneumonia is difficult to tell but I would favor atelectasis. Also noted on the CT is a great deal of hepatic metastatic lesions with ascites and some bony metastases. An abdominal ultrasound was done earlier today. It showed moderate ascites. A paracentesis was planned but could not be done because of the elevated INR. IMPRESSION: 1. This is an extremely unfortunate woman with metastatic breast cancer to the liver and the bones. She was being considered for comfort care but now is going to receive from palliative chemotherapy. I suspect her shortness of breath is not on the basis of infection, and I am inclined to agree with Dr. 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 Also notable is that some of her shortness of breath may just be due to her increasing pleural effusions and concomitant atelectasis. The patient is now in her fourth day of Zosyn, given as empiric therapy for aspiration pneumonia. Though I do not think she has aspiration pneumonia we have gone through four days of Zosyn, so I would go ahead and finish five days of therapy and then stop. Note that recent reviews and monographs about aspiration pneumonia suggests that 5-8 days is adequate treatment and given the fact that we are really not at all convinced that she has a bacterial infection, I would be inclined to stop her Zosyn therapy at the end of tomorrow. 2. Note that her elevated procalcitonin is almost certainly due to liver metastasis, as this is known to produce false-positive procalcitonin levels. 3. We will continue to see this patient with you, and will see her tomorrow but I suspect tomorrow can reasonably be the last day of her Zosyn. Thank you very much.
--- NOTE | 2017-01-16 13:51 | PCM.PNMED ---
Subjective Date of Service Jan 16, 2017 Subjective Continues to have significant generalized weakness. Continues to significant dyspnea unchanged from yesterday but using 7 L O2 as compared to 8.5 L yesterday. Remains afebrile.Dr Nataliia saw her yesterday and planning to give her chemotherapy. Repeat US with moderate ascites but not tapped due to INR 1.8. Exam Vital Signs Vital Sign - Last Date Time Temp Pulse Resp B/P Pulse Ox O2 Delivery O2 Flow Rate FiO2 01/16/17 09:13 108 01/16/17 08:05 36.7 20 117/80 OxyMask 7.00 01/15/17 13:24 93 Intake and Output 01/15/17 01/15/17 01/16/17 Cumulative From/Thru 14:59 22:59 06:59 01/11/17 12:48 - 01/16/17 04:29 Intake Total 1100 ml 107 ml 59088 ml Output Total 3360 ml Balance 1100 ml 107 ml 6813 ml Intake Oral 1100 ml 5286 ml IV Total 107 ml 4887 ml Output Urine Total 850 ml Urine/Stool Mix 2510 ml # Voids 5 15 # Bowel Movements 4 Exam Gen. In mild respiratory distress with tachypnoea HEENT: Head is normocephalic atraumatic, dry tongue Lungs rhonchi on lower chest Heart regular rate and rhythm without murmurs gallops or rubs Abdomen soft , distended, nontender Extremities pulses are present dorsalis pedis posterior tibialis and radial. Skin is warm and dry there are no rashes, Psych alert and oriented to person place and time Neuro cranial nerves II through XII are grossly intact Lymph: There is no lymphadenopathy appreciated in the cervical supra infraclavicular regions : no mejía IVs and Medications Medications Reviewed: Medications were reviewed in detail Lab and Diagnostics Result Diagram: 01/16/17 0630 01/16/17 0630 X-Rays, CTs and MRIs PROCEDURE: CT BRAIN WITHOUT CONTRAST ([id number]) INDICATIONS: altered LOC, h/o met CA IMPRESSION: No acute intracranial abnormality. Dictated by: Gonzales Jerome M.D. on 01/11/2017 at 12:43 PROCEDURE: US ABDOMEN, LIMITED ([id number]) INDICATIONS: Ascites, liver disease due to metastatic breast ca IMPRESSION: Ascites. Mild ascites is insufficient for paracentesis. Dictated by: Kathrine Giron MD, PhD on 01/12/2017 at 10:37 PROCEDURE: CT ANGIO CHEST PULMONARY EMBOLISM ([id number]) INDICATIONS: r/o PE ,d-dimer 23 IMPRESSION: 1. No pulmonary embolus. 2. Bilateral pneumonia with small parapneumonic effusions bilaterally. 3. Increased hepatic metastatic disease. Increased ascites. 4. Severe diffuse skeletal metastases. Dictated by: Otilio León M.D. on 01/13/2017 at 12:57 Assessment & Plan 66-year-old lady with past medical history of metastatic breast cancer( extensive metastases to liver and bone) presented to emergency room due to Nausea, vomiting,Generalized weakness and Lightheadedness, confusion of few days # Acute hypoxic respiratory failure,poa -Due to hepatopulmonary syndrome versus HCAP -Patient remained tachycardic despite IV fluid rehydration. She also has worsened dyspnea with increased oxygen requirement. She is using 7-8 L of oxygen and sats low 90's. Never used any oxygen at home. required 2L to sat 94 on arrival . D-dimer checked and markedly elevated at [address] which is negative for PE.gave a dose of therapeutic lovenox awaitng CTA initially -patient is afebrile but wbc 11.2 today ,up from admission wbc 7.9. procal 1.05 but can as well be due to cancer . started zosyn to cover for HCAp given additional CT finding of possible pna,consulted ID.plan to treat for 5 days.last day 01/17 -discussed with Dr William and dr Zapata ,HCAP unlikely . Most likely patient developing hepatopulmonary syndrome given rapidly worsening liver function test and up trending bilirubin. Continue IV antibiotics for today -oxycodone po for pain ordered but patient declined using it -consulted palliative # metastatic breast cancer( extensive metastases to liver and bone) -Paracentesis requested by oncology, initially insufficient fluid on ultrasound, US repeated today 01/17 , moderate ascites but INR 1.8 and unable to tap, reconsider paracenesis when INR <1.5,will give vit K 5mg today per Dr William -Dr William initially was not planning to give her any chemotherapy given rapidly increasing bilirubin. Consulted palliative care . Dr William is now planning to give her a dose of taxol tomorrow .PICC placed 01/16 # hepatic encephalopathy ,acute,poa, improved -due to liver mets -elevated ammonia at 165 initially. Now improving. -lactlose tid , titrate to 2-3 bowel movements a day -CT brain negative # dehydration with lactic acidosis ,acute,poa resolved -IV fluids -zofran and reglan prn # Intractable nausea and vomiting ,acute,poa, improved -due to liver mets -Treated with IV fluids -zofran and reglan prn -urinalysis no pyuria # markedly elevated d-dimer -negative CTA -LE duplex negative -most liley due to cancer # ppx lovenox DNR/DNI names her daughter Luis Alberto as POA tel [phone] inpatient disposition:3-4 days pending chemo and paracentesis and improvement of acute hypoxic failure.she plans to go to her daughter's place in [place] but seems she needs to go to SNF or be on comfort care if continues to worsen VTE Prophylaxis: Sub-Q Enoxaparin VTE Mechanical Devices: Intermittant Pneumatic CD Resuscitation Status: DNR/DNI:Do Not Resuscitate/Intubate Justo Moon MD Jan 16, 2017 13:50
[2017-01-16] MEDS ORDERED: Phytonadione (Adult) 10 mg/1 mL Inj PO ONE (14:30)
--- NOTE | 2017-01-16 15:51 | DRSVH ---
PROCEDURE: X-RAY PICC LINE PLACEMENT BY NURSE ([id number]) INDICATIONS: POOR VEIN ACCESS COMPARISON: None. FINDINGS: PICC was placed by the intravenous therapy team from the right side. Fluoroscopic spot fi lm demonstrates tip projected over the lower SVC. IMPRESSION: Tip of PICC projected over the lower SVC . Dictated by: Corey RASHEED Interpreted: Gabe Gonsales MD on 01/16/2017 at 11:48 Approved by: Gabe Gonsales M.D. on 01/16/2017 at 15:48
[2017-01-16] MEDS: HYDROmorphone 1 mg/mL Inj IVPUSH PRN ×5 (15:53→23:29)
--- NOTE | 2017-01-16 17:53 | PROG NOTE ---
[address] [address] PROGRESS NOTE PATIENT: ROBERT RAMIREZ : 1950 MR#: [id number] ADMIT: 01/11/2017 JOB ID: [id number] DATE: 01/16/2017 INPATIENT MEDICAL ONCOLOGY PROGRESS REPORT: DIAGNOSIS: Progressive hepatic failure secondary to extensive metastatic breast cancer to liver, associated with ascites, jaundice, encephalopathy, and coagulopathy. SUBJECTIVE: Today the patient remains profoundly weak. Despite encephalopathy she appears oriented x3. She complains of shortness of breath and abdominal discomfort. She has been afebrile. OBJECTIVE: She remains tachycardic with heart rate in the range of 110-120. Blood pressure normal. Temperature afebrile. O2 saturation in mid 90s on OxyMask. Abdomen is moderately to severely distended. LABORATORIES: Bilirubin has increased to 7.3. Liver transaminases and alkaline phosphatase are stable and elevated. LDH 850. Ammonia 128. CBC remains normal other than reactive leukocytosis. IMAGING: Ultrasound showed moderate ascites, but INR was too high for abdominal tap. PLAN: 1. Doxil 25 mg/m2 IV infusion tomorrow morning. The patient would like to postpone to tomorrow morning. This is a short infusion with no immediate side effects. 2. Coagulopathy, secondary to hepatic failure. We will give one dose of vitamin K 5 mg orally and will check INR tomorrow and the next day. When INR under 1.5, will try abdominal paracentesis. 3. Disposition. The patient would like to move into her daughter's home in the [facility] upon discharge. Alternatively, she might need a SNF placement. Nonetheless, she will not be ready for discharge before next week.
--- NOTE | 2017-01-16 18:04 | NUR ---
Mentation- Patient having times where she is disoriented to where she is and thinks that there are kids in her room, and other times where she is completely lucid. We talked about the pain medicine and how she wants to be able to stay focused because "there are still some things I need to take care of." Dilaudid 0'5mg IV has been effective for most of generalized discomfort. Up to bedside commode, otherwise has been on bedrest. O2 per nebulizer mask(which patient prefers) at 7 liters to maintain Spo2 >90%.
[2017-01-16 20:40] VITALS: BP 124/71; PULSE 112; RESP 18; O2SAT 92
[2017-01-17] MEDS: Piperacillin-Tazo 3.375 Gm Inj 3.375 GM in Dextrose 5% Minibag Plus 50 ML IV SCH ×3 (00:26→19:11)
[2017-01-17] MEDS: Ondansetron 2 mg/mL 2 mL Inj IVPUSH PRN (00:35)
--- NOTE | 2017-01-17 03:00 | NUR ---
Pain/Mentation/PICC dressing Patient pain managed with IV pain medications, has periods of on and off confusion, states she "hears a dog barking". Patient removed PICC pressure dressing, replaced with new gauze and covered with rajendra sleeve, patient continues to remove rajendra sleeve. Bed in lowest and locked position, call light within reach, rajendra alarm on for safety, will continue to monitor hourly.
[2017-01-17] MEDS: HYDROmorphone 1 mg/mL Inj IVPUSH PRN ×5 (04:01→18:59)
[2017-01-17 05:12] LABS: Mean Corpuscular Hemoglobin 33.4 pg (27.0-35.0); Mean Corpuscular Volume 95.3 fL (81-100); Platelet Count 168 bil/L (150-400)
[2017-01-17 05:36] VITALS: BP 118/67; PULSE 111; RESP 18; O2SAT 90
[2017-01-17 05:36] LABS: BASOPHILS % (AUTO) 0 % (0-3); MONOCYTES % (AUTO) 13 % (4-12); NEUTROPHILS % (AUTO) 82 % (40-74)
[2017-01-17 05:37] LABS: EOSINOPHILS % (AUTO) 0 % (0-5)
[2017-01-17 06:10] LABS: INR 1.69 ratio
[2017-01-17] MEDS: Lactulose 20 Gm/30 mL 30 mL Syrup PO SCH ×3 (08:30→20:30)
[2017-01-17] MEDS: Acyclovir 400 mg Tablet PO SCH (10:24)
[2017-01-17] MEDS: Fluticasone-Salmeterol 100-50 Inhaler INHALATION SCH ×2 (10:24→20:49)
--- NOTE | 2017-01-17 11:07 | PROG NOTE ---
[address] [address] PROGRESS NOTE PATIENT: ROBERT RAMIREZ : 1950 MR#: [id number] ADMIT: 01/11/2017 JOB ID: [id number] DATE: 01/17/2017 INFECTIOUS DISEASE FOLLOW UP NOTE: REASON FOR FOLLOWUP: Possible aspiration pneumonia or atelectasis in a patient with advanced malignancy. INTERVAL HISTORY: Overnight, the patient has continued to be confused and has an obvious encephalopathy. She is able to speak, however, and denies fevers, chills, or significant shortness of breath. She asked repeatedly for additional Dilaudid and notes she has some right-sided abdominal pain. PHYSICAL EXAMINATION: Reveals an afebrile woman. Temperature 36.6, pulse 111, respiratory rate 18, blood pressure 118/67. She is on 7 L and saturating only 90%. The patient's mental status, as noted, she is confused. Oral mucous membranes are dry. Lungs are relatively clear. Cardiac tones without new murmur. She is mildly tachycardic. Abdomen is distended with what appears to be ascites as well as right upper quadrant fullness and pain with inspiration in that right upper quadrant. LABORATORIES: Include white count slowly climbing now 15,000. Differential shows 82% segs. Creatinine is 1.04. LFTs are worsening. AST is up to 488. Alk phos stable at 270. Albumin 2.2. CA 27.29 is grossly elevated at 1679. Normal goes to 38, so she is roughly 40 times normal at this point. Procalcitonin 1.93, but as mentioned earlier, that is very difficult to interpret in the face of liver mets. Micro cultures include negative blood cultures. Abdominal ultrasound done yesterday shows moderate ascites. IMPRESSION: No obvious evidence of infection in this patient. There has been concern about pulmonary infection but I suspect she does have a hepatopulmonary syndrome as well as increasing abdominal distention and right upper quadrant pain as causes of her respiratory difficulties. RECOMMENDATIONS: 1. Will continue with our earlier recommendation which was to give Zosyn through today and then finish our five days of empiric therapy and then observe. 2. I would not check serial procalcitonins as she has worsening liver mets and we know this is a cause of false-positive procalcitonin, so one would assume they would just go up in concert with her liver mets. 3. ID will go ahead and sign off at this time. Please do not hesitate to call us again on this complicated patient going forward.
[2017-01-17 11:16] VITALS: BP 119/72; PULSE 108; RESP 21; O2SAT 90
--- NOTE | 2017-01-17 12:47 | PCM.PNMED ---
Subjective Date of Service Jan 17, 2017 Subjective Patient is in the bed, weak, deconditioned, complaining of generalized pain. Exam Vital Signs Vital Sign - Last Date Time Temp Pulse Resp B/P Pulse Ox O2 Delivery O2 Flow Rate FiO2 01/17/17 11:16 36.4 108 21 119/72 90 OxyMask 7.00 Intake and Output 01/16/17 01/16/17 01/17/17 Cumulative From/Thru 14:59 22:59 06:59 01/11/17 12:48 - 01/17/17 05:38 Intake Total 320 ml 978 ml 400 ml 54065 ml Output Total 200 ml 700 ml 200 ml 4460 ml Balance 120 ml 278 ml 200 ml 7411 ml Intake Oral 320 ml 757 ml 400 ml 6763 ml IV Total 221 ml 5108 ml Output Urine Total 200 ml 700 ml 200 ml 1950 ml Urine/Stool Mix 2510 ml # Voids 1 16 # Bowel Movements 0 0 1 5 Exam GENERAL: Alert, not in distress, cooperative, weak HEAD: atraumatic, normocephalic, no bruises. EYES: WILSON, EOMI, icteric, able to fully open and close eyelids SKIN: Skin color- yellowish, turgor normal. No visible rashes or lesions. EAR, NOSE, MOUTH, THROAT: Lips, oral mucosa, tongue gums, oropharynx are moist , pink, no lesions. Ears normal appearance, no lesions. NECK: no jugulovenous distention; supple ROM normal. RESPIRATORY: Lungs clear to auscultation. Good diaphragmatic excursion. CARDIAC: normal S1 and S2; no rubs, murmurs, or gallops; regular rate and rhythm ABDOMEN: Abdomen soft, non-tender, mildly distended. BS normal. No masses or organomegaly. MUSCULOSKELETAL: ROM full, muscles are not tender EXTREMITIES: no pitting edema in LE, no new deformities or skin discoloration. NEURO: Alert, oriented X 3, Sensation grossly intact., Cranial nerves II-XII intact, Grossly normal motor function. PULSES: 2+ radial, 2+ carotid REVIEW OF SYSTEMS: GENERAL: no malaise, no fevers., SEE HPI HEENT: Negative for frequent or significant headaches All other reviewed and negative other than HPI. IVs and Medications Medications Reviewed: Medications were reviewed in detail Lab and Diagnostics Result Diagram: 01/17/17 0505 01/17/17 0518 X-Rays, CTs and MRIs PROCEDURE: CT BRAIN WITHOUT CONTRAST ([id number]) INDICATIONS: altered LOC, h/o met CA IMPRESSION: No acute intracranial abnormality. Dictated by: Gonzales Jerome M.D. on 01/11/2017 at 12:43 PROCEDURE: US ABDOMEN, LIMITED ([id number]) INDICATIONS: Ascites, liver disease due to metastatic breast ca IMPRESSION: Ascites. Mild ascites is insufficient for paracentesis. Dictated by: Kathrine Giron MD, PhD on 01/12/2017 at 10:37 PROCEDURE: CT ANGIO CHEST PULMONARY EMBOLISM ([id number]) INDICATIONS: r/o PE ,d-dimer 23 IMPRESSION: 1. No pulmonary embolus. 2. Bilateral pneumonia with small parapneumonic effusions bilaterally. 3. Increased hepatic metastatic disease. Increased ascites. 4. Severe diffuse skeletal metastases. Dictated by: Otilio León M.D. on 01/13/2017 at 12:57 Assessment & Plan 66-year-old lady with past medical history of metastatic breast cancer( extensive metastases to liver and bone) presented to emergency room due to Nausea, vomiting,Generalized weakness and Lightheadedness, confusion of few days Acute hypoxic respiratory failure due to hepatopulmonary syndrome versus HCAP. Metastatic breast cancer( extensive metastases to liver and bone) -Stable - D-dimers were elevated at [address] which was negative for PE - Patient was started on zosyn to cover for HCAp given additional CT finding of possible pna,consulted ID. Plan to treat for 5 days, last day 01/17 - Infectious disease and oncology following Plan - Continue with the Zosyn for today -consulted palliative - Paracentesis if INR is below 1.5 - Oncology planning chemotherapy Hepatic encephalopathy - Improving -due to liver mets Plan -lactlose tid , titrate to 2-3 bowel movements a day Dehydration with lactic acidosis - resolved Intractable nausea and vomiting - Improved -due to cancer/mets -zofran and reglan prn DVT PROPHYLAXIS: SCD Code status: DO NOT RESUSCITATE/DO NOT INTUBATE as per family and patient wishes Disposition: discharge in 2-3 days after patient improves. Plan of care discussed with patient, nurse, treatment team; Labs, radiology tests reviewed. Plan of care, medication side effects, home medication, diagnostic procedures and available alternatives were discussed and reviewed with patient. All questions answered. Patient verbalized understanding, approved and agreed to plan of care. VTE Prophylaxis: Sub-Q Enoxaparin VTE Mechanical Devices: Intermittant Pneumatic CD Resuscitation Status: DNR/DNI:Do Not Resuscitate/Intubate José Miguel Saravia MD Jan 17, 2017 12:47
--- NOTE | 2017-01-17 13:48 | NUR ---
NUTRITION FOLLOW-UP: ASSESS: 66 YO female presents with nausea and vomiting x 1-1/2 weeks, generalized weakness, lightheadedness and confusion for several days. Pt with progressive hepatic failure secondary to extensive metastatic breast cancer to liver and bone with ascites, jaundice and encephalopathy. Nausea and vomiting have improved per notes. Pt will likely have paracentesis soon once INR is ok per notes. Oncology is planning on starting chemo. Palliative care is following. PMHx: Metastatic breast cancer with liver and osseous involvement, diagnosed September 2015, just starting Ibrance, asthma, PTSD. DIET: General, Ensure B and D trays, yogurt at lunch. PO intake bites-25% x 6 days. LABS: Reviewed. Na 128, Cr 1.04, Ca 7.4, AST 488, ALT 118, Alk phos 259, Alb 2.2. MEDICATIONS: Reviewed GI symptoms / stool: BM x 1 today (01/17) Skin Integrity: No issues reported. ANTHROPOMETRICS: Current Wt: 89.2 kg (bed scale) Admit wt: 82.7 kg. (stated wt) ESTIMATED NEEDS (CANCER): Calories: 2068 - 2482 kcal (25 - 30 kcal / kg BW) Protein: 83 - 124 g protein (1.0 - 1.5 g / kg BW) NUTRITION DIAGNOSIS: 1) Inadequate oral intake related to decreased appetite as evidenced by minimal intake of bites-25% x 6 days--PERSISTS. INTERVENTION: 1) Continue Ensure and yogurt on trays. 2) Will add ensure clear TID between meals to try and promote increased po intake. MONITOR/EVALUATE: PO intake, labs, nutritional status, POC. Follow per high nutritional risk guidelines.
--- NOTE | 2017-01-17 14:46 | PCM.PNPALL ---
Date of Service Jan 17, 2017 Date of Hospital Admission: Jan 11, 2017 at 14:51 Date of Palliative Consult: Jan 16, 2017 Palliative Care Recommendation Unfortunate 66-year-old lady with metastatic estrogen receptor positive breast cancer, admitted with progressive hepatic failure with encephalopathy, coagulopathy, etc. Palliative medicine consulted to assist with symptom management and review of goals of care. Patient requested DNR/DNI status several days prior to palliative consultation as she continued to deteriorate, but has also requested continued palliative chemotherapy in hopes that it will buy her some more time so that she can complete arrangements for her family. See discussion below regarding symptom management and discharge planning recommendations. Summary of palliative recommendations: -Symptom management (Pain/other)- The patient has been reluctant to use pain medications despite ongoing discomfort. In discussing her pain needs with her oncologist, Dr. Lawrence, he notes the significance of her liver failure in processing medications and strongly advises that NO LONG-ACTING medications be used and that, for the time being, the shortest acting form of hydromorphone. ie IV, is the safest for her. He is happy with the current orders and her q 4 hr use of the medication. Dr. Lawrence does NOT want it given routinely but rather prn, yet with nursing, we have agreed to write this as a scheduled medication to ensure that it is being offered at least q 4 hours. She can continue to have it more often as needed but no more than a total of [address] Lawrence also notes that her pain is largely from the pressure of ascites. It is hoped that a paracentesis will bring her pain levels down significantly. The patient received the medication 2 hours before my visit and reported low levels of pain at this time. She states the pain never goes away but is tolerable at levels 5 and below. She admits to waiting until it is over 5 to ask for medication, but it is usually 8-10 before the medication is given. She is accepting of this as she is "careful" not to take it more often than every 4 hours anyway, even though it appears to last only about 3-3.5 hours. She notes that she has pills from Dr. Lawrence to use on DC (no refills will be needed). She states her intention to "be off all that" eventually. This hope has its base in the hope that chemo will control her disease sufficient for her to be out of pain. We will continue to follow and adjust pain medications as needed. --Continue with HM IV 0.5 mg q 2 hours prn with a maximum of 8 doses. The order will read 0.5 mg q 4 hrs RTC to ensure the patient is being offered. --Continue prn lorazepam and ondansetron as well. -DPOA/Advanced Directives/POLST- DNR/DNI per conversations with her hospitalist earlier in the week. Not ready to transition to hospice care as she is initiating palliative chemotherapy today or tomorrow. Will plan on assisting her in completing a POLST prior to discharge. Family Meeting/Family/emotional support--Dtr feels that her ability to provide care for the patient in the home will depend on having a medical support team like home health or hospice available to address symptom management and confusion. She is coming in tomorrow to discuss options, at which time we will explain the criteria for hospice, offer Home health options if a chemo plan remains in place, and discuss whether home support is adequate to allow the discharge of patient to the daughter's home. CM will attend family meeting to offer choices Additional Medical Diagnoses with primary management by Hospitalist team include : # Acute hypoxic respiratory failure,poa # Possible HCAP, infectious disease consultation pending # hepatic encephalopathy ,acute,poa, improved # dehydration with lactic acidosis ,acute,poa resolved # Intractable nausea and vomiting ,acute,poa, improved # metastatic breast cancer( extensive metastases to liver and bone) Problems: End of Life Preferences DNR/DNI Goals of Care Patient hopes to stabilize and then recover sufficiently to return to her daughter's home in the [facility]. Disposition To be determined Resuscitation Status Resuscitation Status: DNR/DNI:Do Not Resuscitate/Intubate POLST Updates/Changes Previous POLST?: No . Advanced Care Planning Address: POLST Pain: Moderate Symptom management: Anxiety, Dyspnea, Pain Palliative Subjective Palliative Care Daily Responde: Patient, Family/Proxy, Nurse Brief History Unfortunate 66-year-old lady with metastatic estrogen receptor positive breast cancer, admitted with progressive hepatic failure with encephalopathy, coagulopathy, etc. Palliative medicine consulted to assist with symptom management and review of goals of care. Patient requested DNR/DNI status several days prior to palliative consultation as she continued to deteriorate, but has also requested continued palliative chemotherapy in hopes that it will buy her some more time so that she can complete arrangements for her family. Patient/Family Concerns See discussion Subjective Patient has inconsistent answers to rating of pain and discussion of pain control. Rates pain 5-6, then 8-9 within minutes of each other. Insists that pain pills make her "loopy" whereas the "liquid" (IV hydromorphone) does not. She has minimal appetite, has a difficult time finding a comfortable position with pain in abdomen and difficulty breathing due to pressure from abdominal fluid. Palliative Performance Scale PPS Patient Status: Baseline PPS Ambulation: Mainly Sit/Lie PPS Activity: Unable to do most activity PPS Self-Care: Occasional assistance necessary PPS Intake: Normal or reduced PPS Conscious Level: Full or confusion Performace Scale: 50% ADLs ADL Patient Status: Baseline ADL Ambulation: Reduced ADL Dressing: Full ADL Feeding: Full ADL Hygene/bathing: Full ADL Transfers: Full Responsive Patient Symptoms Pain (current): Moderate Pain (minimum): Moderate Pain (maximium): Severe *Requires 72 Hour Followup Tiredness/Fatigue: Moderate Nausea: Mild Depression: Mild Anxiety: Moderate (patient's daughter states she is "dependent" on Ativan) Shortness of Breath: Mild Objective Findings Exam Vital Sign - Last Date Time Temp Pulse Resp B/P Pulse Ox O2 Delivery O2 Flow Rate FiO2 01/17/17 13:04 Supplement Oxygen 01/17/17 11:16 36.4 108 21 119/72 90 7.00 Intake and Output 01/16/17 01/16/17 01/17/17 Cumulative From/Thru 15:00 23:00 07:00 01/11/17 12:48 - 01/17/17 05:38 Intake Total 320 ml 978 ml 400 ml 92156 ml Output Total 200 ml 700 ml 200 ml 4460 ml Balance 120 ml 278 ml 200 ml 7411 ml Intake Oral 320 ml 757 ml 400 ml 6763 ml IV Total 221 ml 5108 ml Output Urine Total 200 ml 700 ml 200 ml 1950 ml Urine/Stool Mix 2510 ml # Voids 1 16 # Bowel Movements 0 0 1 5 General: Alert/Oriented x3, Person, Place, Time, Situation (limited), Mild distress HEENT: Atraumatic, EOMI Heart: Tachycardia Lungs: Diminished Abdomen: Distended, Guarding Neuro: Arousable, Follows Commands Extremities: Warm Lab/Diagnostics Lab and Imaging results reviewed in detail in EMR. Patient/Family Conference Members Present Family Members Present Patient in room, daughter via TC Medical Team Members Present? Palliative CAre XU, RN Discussion/Goals of Care Discussion FAMILY UNDERSTANDING OF DISEASE: [patient is reticent to talk openly about her illness. She claims that "her doctors understand" and doesn't want "too many different people involved". But as we began to discuss needs for medications into the future, she broke into tears saying "I don't even know if I am going to be alive in 3 days"; a little later she acknowledged that this was a breakthrough for her to say this. In speaking with her daughter on the phone, it is clear that her daughter is realistic about the progression of the illness , but she has gotten "the impression" that the chemotherapy had "worked", that the liver was now free of tumors but now exhibiting "pseudo cirrhosis", which they thought should improve. I have a call into to Dr. William to discuss his view of her situation; the daughter plans to come to the hospital tomorrow to talk with us and make plans. DISEASE PROGRESSION/EVIDENCE OF DECLINE/SYMPTOM BURDEN: [increased pain, ascites , confusion related to high ammonia levels, difficult compliance possibly r/t to confusion.] GOALS: [to return to her family for care in a home setting. Currently her daughter's home is the most likely; her daughter is currently moving to a new apartment in [place]. She will have a separate unit for her mom to stay in ] HOPES/WORRIES: [She expresses concern about not getting her needs met, about people taking control away from her and her family. She is just now beginning to think about the realistic impact of her disease as not survivable. She and her family share the hope that she can be with them, but is worried about whether she can provide the kind of care her mom needs without disruption to her work and family.] Palliative Care counselled: Discussed current medications for comfort and confusion. Will continue to encourage use of po medications but allow IV meds. Discuss role of hospice in home transition plan Discuss family needs and expectations for patient's decline over the coming weeks/months. Time spent Total time 65 minutes; >50% face to face with patient and/or family, providing counselling regarding plans and recommendations, and in care coordination with his/her medical teams. Of this 30 minutes is spent counseling for advanced care planning with the patient/the patients family/the surrogate decision maker. copies to: Rebecca Valladares PA-C; Dale William MD, Sharmon M. ARNP Jan 17, 2017 14:45
[2017-01-17] MEDS ORDERED: 0.9% Sodium Chloride 500 ML IV ONE ×2 (15:30→16:00)
[2017-01-17] MEDS ORDERED: Dexamethasone 4 mg/mL Inj IV ONE ×2 (15:30→16:00)
[2017-01-17] MEDS ORDERED: [UNRECOGNIZED DRUG - OTHER] IV ONE ×2 (16:00→16:30)
[2017-01-17] MEDS ORDERED: DEXTROSE 5% IV ONE ×2 (16:00→16:30)
[2017-01-17 16:48] VITALS: BP 117/78; PULSE 113; RESP 20; O2SAT 87
--- NOTE | 2017-01-17 16:48 | NUR ---
Social Work: Continued Discharge Planning/Multidisciplinary Rounds D: EMR reviewed. Pt is on day 6 of hospitalization. Pt discussed in multidisciplinary rounds and is not medically stable for discharge at this time, anticipate 1-2 more days. Palliative met with pt today and discussed Hospice with pt and daughter. Pt would like to either go home with daughter on with HH RN and Chemo 1x/month [place] [facility] or not do Chemo and go home with daughter and open with hospice [place] [facility]. SW received Hospice order. Palliative requested SW attend family meeting at 1200 01/18, SW agreeable. SW to provide HH choices on [facility] and Hospice options on [facility] using [facility] Choice list. No other SW needs at this time, no other MD orders. SW will continue to follow and meet with pt and family tomorrow at 1200. A: Pt who is independent at baseline. P: Evolving; pt anticipated to go home on hospice or home with chemo 1x/month and HHRN- SW and Palliative to meet with pt today and provide HH resources and hospice resources - based on pt's decision to go on chemo or not. Pt aware that pt can't open with hospice if pt is on chemo. LATRICE Kwong
--- NOTE | 2017-01-17 16:54 | DRSVH ---
PROCEDURE: X-RAY CHEST ONE VIEW, PORTABLE ([id number]) INDICATIONS: shortness of breath TECHNIQUE: One view of the chest was acquired. COMPARISON: [facility], CR, XR PICC LINE PLACE BY NURSE, 01/16/2017, 10:23. [facility], CR, XR CHEST 2VW, 07/29/2016, 10:14. [facility], CR, XR CHEST 1VW (PORTABLE), 12/01/2015, 16:00. FINDINGS: Surgical changes and devices: Right PICC present tip projected over the mid superior vena cava. Lungs and pleura: Lung volumes are low and there are bibasilar patchy air space opacities as well as linear opacity involving the left upper lobe. Mediastinum: Mediastinal contours appear normal. Heart size is normal. Bones and chest wall: No suspicious bony lesions. Overlying soft tissues appear unremarkable. IMPRESSION: 1. Right PICC tube tip projects over the mid superior vena cava. 2. Bibasilar atelectasis versus aspiration or pneumonia. Correlate clinically. 3. Linear opacity involving the left upper lobe with appearance suggesting subsegmental atelectasis. Dictated by: Corey RASHEED Interpreted: Fanny Moran MD on 01/17/2017 at 12:27 Approved by: Fanny Moran M.D. on 01/17/2017 at 16:52
--- NOTE | 2017-01-17 17:23 | NUR ---
Elevated bilirubin Phoned Dr William regarding pt's bilirubin of 7.9. He said okay to go ahead with chemo therapy doxorubicin.
[2017-01-17 17:37] VITALS: BP 136/57; PULSE 116; RESP 22; O2SAT 89
[2017-01-17 18:05] VITALS: BP 132/73; PULSE 117; RESP 22; O2SAT 91
--- NOTE | 2017-01-17 18:13 | PROG NOTE ---
[address] [address] PROGRESS NOTE PATIENT: ROBERT RAMIREZ : 1950 MR#: [id number] ADMIT: 01/11/2017 JOB ID: [id number] DATE: 01/17/2017 INPATIENT MEDICAL ONCOLOGY PROGRESS NOTE: DIAGNOSIS: Progressive hepatic failure secondary to extensive metastatic breast cancer to liver, associated with ascites, jaundice, encephalopathy, and coagulopathy. SUBJECTIVE: Today she remains profoundly weak. At times she appears slightly confused, but overall she remains alert and oriented x3. She has abdominal discomfort due to ascites. OBJECTIVE: Overall alert and oriented x3, but appears very fatigued. Blood pressure 136/57, heart rate 116, O2 saturation 89% on room air. She remains nonfebrile. LABORATORIES: Bilirubin has risen further to 7.9. AST, ALT, and alkaline phosphatase are overall stable. Albumin severely low at 2.2. INR slightly improved to 1.69 after oral vitamin K x1 dose. IMPRESSION AND PLAN: This patient knows her poor prognosis. She would like to try chemotherapy. She has not had a chance to try any meaningful course of chemotherapy for her metastatic breast cancer, and therefore I think it would be reasonable to try a 50% dose of Doxil, which might induce a response and could lead to improvement in her liver failure and hopefully extended survival. Without chemotherapy, this patient's prognosis is very poor and probably measured in days to a few weeks. She understands the risks and we proceeded with Doxil at 25 mg/m2 IV infusion today. She will stay in the hospital over the weekend, and we are working with her daughter and granddaughter for appropriate placement next week.
--- NOTE | 2017-01-17 19:02 | NUR ---
Chemotherapy Pt started on Doxorubicin Liposomal 50 mg through right arm PICC. Brisk blood flow verified prior to administration. Infusion completed at 1855 hrs. Pt tolerated infusion well with no obvious reaction or complication. VSS.
[2017-01-17 21:59] VITALS: BP 101/73; PULSE 98; RESP 16; O2SAT 90
[2017-01-18] MEDS: HYDROmorphone 1 mg/mL Inj IVPUSH PRN ×6 (00:43→17:39)
[2017-01-18] MEDS: Piperacillin-Tazo 3.375 Gm Inj 3.375 GM in Dextrose 5% Minibag Plus 50 ML IV SCH ×3 (00:47→17:40)
--- NOTE | 2017-01-18 04:11 | NUR ---
Pain/ Mentation Pt. reports pain every 4-5 hours. IV Dilaudid effective for pain. Pt. is confused. Pt. reports seeing "little girls" in her room. Will continue to monitor.
[2017-01-18 05:30] LABS: Mean Corpuscular Hemoglobin 33.3 pg (27.0-35.0); Mean Corpuscular Volume 95.2 fL (81-100); Platelet Count 139 bil/L (150-400)
[2017-01-18 05:45] LABS: INR 1.8 ratio
[2017-01-18 05:51] LABS: BASOPHILS % (AUTO) 0 % (0-3); EOSINOPHILS % (AUTO) 0 % (0-5); MONOCYTES % (AUTO) 11 % (4-12); NEUTROPHILS % (AUTO) 77 % (40-74)
[2017-01-18 06:11] VITALS: BP 131/78; PULSE 56; RESP 18; O2SAT 91
[2017-01-18] MEDS: Lactulose 20 Gm/30 mL 30 mL Syrup PO SCH ×3 (08:30→20:30)
[2017-01-18 08:33] VITALS: BP 135/75; PULSE 111; RESP 21; O2SAT 90
[2017-01-18] MEDS: Acyclovir 400 mg Tablet PO SCH (09:02)
[2017-01-18] MEDS: Fluticasone-Salmeterol 100-50 Inhaler INHALATION SCH ×2 (09:04→21:24)
--- NOTE | 2017-01-18 12:55 | PCM.PNMED ---
Subjective Date of Service Jan 18, 2017 Subjective Patient is in the bed, looks weak, complains of pains and aches everywhere. Exam Vital Signs Vital Sign - Last Date Time Temp Pulse Resp B/P Pulse Ox O2 Delivery O2 Flow Rate FiO2 01/18/17 08:33 36.7 111 21 135/75 90 OxyMask 6.00 Intake and Output 01/17/17 01/17/17 01/18/17 Cumulative From/Thru 14:59 22:59 06:59 01/11/17 12:48 - 01/18/17 06:41 Intake Total 662 ml 1226 ml 10727 ml Output Total 200 ml 300 ml 4960 ml Balance 462 ml 926 ml 8799 ml Intake Oral 662 ml 0 ml 7425 ml IV Total 1226 ml 6334 ml Output Urine Total 200 ml 300 ml 2450 ml Urine/Stool Mix 2510 ml # Voids 16 # Bowel Movements 0 5 Exam GENERAL: Alert, not in distress, weak HEAD: atraumatic, normocephalic, no bruises. EYES: EOMI, icteric, able to fully open and close eyelids SKIN: Skin color- yellowish, turgor normal. No visible rashes EAR, NOSE, MOUTH, THROAT: Lips, oral mucosa, tongue are moist, pink, no lesions. Ears normal appearance, no lesions. NECK: no jugulovenous distention; supple ROM normal. RESPIRATORY: Lungs clear to auscultation. Good diaphragmatic excursion. CARDIAC: normal S1 and S2; no rubs, murmurs, or gallops; regular rhythm ABDOMEN: Abdomen soft, non-tender, mildly distended. BS normal. MUSCULOSKELETAL: ROM full, muscles are not tender EXTREMITIES: no pitting edema in LE, no new deformities or skin discoloration. NEURO: Alert, oriented X 3, Cranial nerves II-XII intact, Grossly normal motor function. PULSES: 2+ radial, 2+ carotid REVIEW OF SYSTEMS: GENERAL: no malaise, no fevers., SEE HPI HEENT: Negative for frequent or significant headaches All other reviewed and negative other than HPI. IVs and Medications Medications Reviewed: Medications were reviewed in detail Lab and Diagnostics Result Diagram: 01/18/17 0510 01/18/17 0510 X-Rays, CTs and MRIs PROCEDURE: CT BRAIN WITHOUT CONTRAST ([id number]) INDICATIONS: altered LOC, h/o met CA IMPRESSION: No acute intracranial abnormality. Dictated by: Gonzales Jerome M.D. on 01/11/2017 at 12:43 PROCEDURE: US ABDOMEN, LIMITED ([id number]) INDICATIONS: Ascites, liver disease due to metastatic breast ca IMPRESSION: Ascites. Mild ascites is insufficient for paracentesis. Dictated by: Kathrine Giron MD, PhD on 01/12/2017 at 10:37 PROCEDURE: CT ANGIO CHEST PULMONARY EMBOLISM ([id number]) INDICATIONS: r/o PE ,d-dimer 23 IMPRESSION: 1. No pulmonary embolus. 2. Bilateral pneumonia with small parapneumonic effusions bilaterally. 3. Increased hepatic metastatic disease. Increased ascites. 4. Severe diffuse skeletal metastases. Dictated by: Otilio León M.D. on 01/13/2017 at 12:57 Assessment & Plan 66-year-old lady with past medical history of metastatic breast cancer( extensive metastases to liver and bone) presented to emergency room due to Nausea, vomiting,Generalized weakness and Lightheadedness, confusion of few days Acute hypoxic respiratory failure due to hepatopulmonary syndrome versus HCAP. Metastatic breast cancer( extensive metastases to liver and bone) - stable - D-dimers were elevated at [address] which was negative for PE - Patient was started on zosyn to cover for HCAp given additional CT finding of possible pna,consulted ID. Plan to treat for 5 days, last day 01/17 - Infectious disease and oncology were consulted - Palliative care consulted Plan - Paracentesis if INR is below 1.5 - Oncology planning chemotherapy - pain and anxiety meds - Hold antibiotics and monitor Hepatic encephalopathy - Improving Plan -lactlose tid , titrate to 2-3 bowel movements a day Dehydration with lactic acidosis - resolved Intractable nausea and vomiting - Improved -due to cancer/mets -zofran and reglan prn Hyponatremia - Stable - Monitor Thrombocytopenia - Secondary to liver metastases - Monitor DVT PROPHYLAXIS: SCD Code status: DO NOT RESUSCITATE/DO NOT INTUBATE as per family and patient wishes Disposition: discharge in 2-3 days after patient improves. Plan of care discussed with patient, nurse, treatment team; Labs, radiology tests reviewed. Plan of care, diagnostic procedures and available alternatives were discussed and reviewed with patient. All questions answered. Patient verbalized understanding, approved and agreed to plan of care. VTE Prophylaxis: Sub-Q Enoxaparin VTE Mechanical Devices: Intermittant Pneumatic CD Resuscitation Status: DNR/DNI:Do Not Resuscitate/Intubate José Miguel Saravia MD Jan 18, 2017 12:55
[2017-01-18 13:09] VITALS: BP 134/77; PULSE 108; RESP 22; O2SAT 89
--- NOTE | 2017-01-18 14:35 | NUR ---
VICK : Patient was in uncontrollable amount of pain and was feeling nauseous, she was unable to sign her VICK at this time. Notified nurse of symptoms
[2017-01-18] MEDS ORDERED: Sodium Chloride LOK Flush 10 mL Syringe IVFLUSH PRN ×2 (15:05)
--- NOTE | 2017-01-18 15:15 | NUR ---
NUTRITION FOLLOW-UP: ASSESS: 66 YO female presents with nausea and vomiting x 1-1/2 weeks, generalized weakness, lightheadedness and confusion for several days. Pt with progressive hepatic failure secondary to extensive metastatic breast cancer to liver and bone with ascites, jaundice and encephalopathy. Nausea and vomiting have improved per notes. Pt will likely have paracentesis soon once INR is ok per notes. Chemo started 01/17 (Doxil). Palliative care is following, MECH[employer]ICAL PRO[employer]INE[employer] notes indicate mtg today at 1200 to further develop plan of home with chemo 1x/month vs. hospice, no new palliative notes seen today. Will continue to follow. PO intake improving slightly, appears pt continues with minimal appetite and c/o abdominal pain d/t ascites. PMHx: Metastatic breast cancer with liver and osseous involvement, diagnosed September 2015, just starting Ibrance, asthma, PTSD. DIET: General, Ensure B and D trays, yogurt at lunch. PO intake ~25% x 2 days. Minimal x 7d. LABS: Reviewed. Na 127, BUN 33, Cr 1.32, Glu 157, Ca 7.3, AST 605, ALT 155, Ammonia 128,Alb 2.1 MEDICATIONS: Reviewed GI symptoms / stool: BM x 1 (01/17) Skin Integrity: No issues reported. ANTHROPOMETRICS: Current Wt: 89.2 kg (bed scale) Admit wt: 82.7 kg. (stated wt) ESTIMATED NEEDS (CANCER): Calories: 2068 - 2482 kcal (25 - 30 kcal / kg BW) Protein: 83 - 124 g protein (1.0 - 1.5 g / kg BW) NUTRITION DIAGNOSIS: 1) Inadequate oral intake related to decreased appetite as evidenced by minimal intake of bites-25% x 6 days--PERSISTS. INTERVENTION: 1) Continue Ensure and yogurt on trays. 2) Will add ensure clear TID between meals to try and promote increased po intake. MONITOR/EVALUATE: Monitor for evolving POC, nutrition needs (nutrition support?) once POC determined. Follow per high nutritional risk guidelines.
--- NOTE | 2017-01-18 15:47 | PCM.PALLBR ---
Palliative Care Recommendation Unfortunate 66-year-old lady with metastatic estrogen receptor positive breast cancer, admitted with progressive hepatic failure with encephalopathy, coagulopathy, etc. Palliative medicine consulted to assist with symptom management and review of goals of care. Patient requested DNR/DNI status several days prior to palliative consultation as she continued to deteriorate, but has also requested continued palliative chemotherapy in hopes that it will buy her some more time so that she can complete arrangements for her family. She has received her first dose of Doxil at 25 mg/m2 IV, which is a 50% dose in the hopes that this might induce a response and could lead to improvement in her liver failure and hopefully extended survival. He states that without chemotherapy, this patient's prognosis is very poor and probably measured in days to a few weeks. He also states "if she is sharee, this [treatment] could give her [a few ] months." She understands the risks and she received the first infusion yesterday. Her family is hopeful that they will have more time with her but understand that this is not a cure. They are overwhelmed with the questions of what her care needs will be, how to proceed if she does not respond and how they will know, what help will be available if her is more imminent. See discussion below regarding symptom management and discharge planning recommendations. I have highlighted input from Dr. William regarding hospice plan of care. Summary of palliative recommendations: Disposition: As of today, Palliative Care has met with the family both with the patient and separately to discuss disposition options. They inform me that they have decided that they are NOT planning to have the patient moved to [place] to live with the daughter, but rather return home where her two sons live with her and can provide 24 hour care. There is shared concern about the burden of care on her two sons, one of whom is in the room with us and seems unable to grasp what his duties might entail. The other son seems more capable, is asking appropriate questions. I would want the maximum amount of support for these two caregivers. We have discussed the care options as follows: 1) Home health could follow the patient in-home for med management, safety, family training, and the needed intermittent care needed for management in the interim month before her next chemo. This would include assessment of ascites and arranging paracentesis prn as well as other blood draws, assisting the family with transport for medical appointments and procedures as needed etc. Given the fact that this service does not include 24 hour access; the family understands that they would have to access emergency services (911) if the patient had increased needs during the nights or weekends. 2) SNF could be an option if the burden of care was too high. [facility] close by and could provide care. It is to be noted that [facility] would not allow IV pain medications but we do not anticipate the need for this currently. 3) A third option of initiating hospice care is being explored. Even though the current plan is for the patient to receive monthly chemo, she faces a high risk of dying from her liver failure before the next treatment is due. --I have spoken with [facility] and [facility] (Dr. Gina Coughlin) who both have stated that this situation would be conditionally acceptable to have hospice involved given the high risk of dying that this woman faces before her next chemo and the high level of need within the family. The "conditionality" for both of these hospices comes down to finding out how aggressive Dr. William's plan for the patient is in the next month. Specifics to be considered include: --Both hospices feel that they could meet the needs for palliative paracentesis, though Dr. Roman did point out that the prep work such as blood draw for INR, Vitamin K perhaps would be covered, as well as the procedure. She felt that they would NOT cover FFP if needed. She also expressed concern about indwelling abdominal catheter due to high risk of infection--Dr. William would be asked whether he feels a catheter would be safe for this patient. --Both hospices could cover the costs of routine blood work (CBC, liver function tests, INR) to help oncology know whether the patient is getting a response and whether she can tolerate a second dose of chemo. More extensive testing, like CT scans, MRI would not be covered. --Both the patient and oncologist might benefit if Dr. William would agree to be the patient's "primary physician" on the hospice admission. That way she could continue to see him (and he can get paid for visits) as often as he/she feel is necessary without having to get prior approval. The family is aware of these options UPDATE as of 1800 on 01/18: Dr. William has been called; his response/input is as follows: --Dr. William feels hospice support is appropriate for this patient on discharge as she has a high risk of dying before her next chemo treatment. --He does not plan to see her but would ask for the following weekly labs to be drawn and faxed to his office on consecutive Mondays post discharge. --CBC, CMP, PT/INR, Mg++, LDH --He plans to have paracentesis done before discharge. He is not in favor of placing an indwelling catheter in her abdomen, but agrees that this could be revisited if her need for paracentesis became burdensome. --He does not think she will need transfusions in the interim month, nor does he plan CT or MRI monitoring of her cancer. Under these conditions, both [facility] and [facility] hospices can be offered to the family for them to choose. [facility] could be contacted to see if they can do an info visit here in the hospital prior to DC if chosen. -Symptom management (Pain/other)- The patient has been reluctant to use pain medications despite ongoing discomfort. In discussing her pain needs with her oncologist, Dr. Lawrence, he notes the significance of her liver failure in processing medications and strongly advises that NO LONG-ACTING medications be used and that, for the time being, the shortest acting form of hydromorphone. ie IV, is the safest for her. He is happy with the current orders and her q 4 hr use of the medication. Dr. Lawrence does NOT want it given routinely but rather prn, yet with nursing, we have agreed to write this as a scheduled medication to ensure that it is being offered at least q 4 hours. She can continue to have it more often as needed but no more than a total of [address] Lawrence also notes that her pain is largely from the pressure of ascites. It is hoped that a paracentesis will bring her pain levels down significantly. The patient received the medication 2 hours before my visit and reported low levels of pain at this time. She states the pain never goes away but is tolerable at levels 5 and below. She admits to waiting until it is over 5 to ask for medication, but it is usually 8-10 before the medication is given. She is accepting of this as she is "careful" not to take it more often than every 4 hours anyway, even though it appears to last only about 3-3.5 hours. She notes that she has pills from Dr. Lawrence to use on DC (no refills will be needed). She states her intention to "be off all that" eventually. This hope has its base in the hope that chemo will control her disease sufficient for her to be out of pain. We will continue to follow and adjust pain medications as needed. --Continue with HM IV 0.5 mg q 2 hours prn with a maximum of 8 doses. The order will read 0.5 mg q 4 hrs RTC to ensure the patient is being offered. --Continue prn lorazepam and ondansetron as well. -DPOA/Advanced Directives/POLST- DNR/DNI per conversations with her hospitalist earlier in the week. We are considering whether she would qualify for a transition to hospice care as noted above. --Will plan on assisting her in completing a POLST prior to discharge. Family Meeting/Family/emotional support--see above regarding family situation and support given. Additional Medical Diagnoses with primary management by Hospitalist team include : # Acute hypoxic respiratory failure,poa # Possible HCAP, infectious disease consultation pending # hepatic encephalopathy ,acute,poa, improved # dehydration with lactic acidosis ,acute,poa resolved # Intractable nausea and vomiting ,acute,poa, improved # metastatic breast cancer( extensive metastases to liver and bone) Problems: End of Life Preferences DNR/DNI. POLST form discussed with family; they are aware of the patient's decision but not able to state if they agree at this time. They question whether the patient knows what she is deciding when she makes this decision to be DNR/DNI. I have given them a POLST form to review. Goals of Care Patient hopes to stabilize and then recover sufficiently to return to her home with her sons. She is hoping for as much time as she can get but able to state that she knows she may have very little time. She wants to see her family and be with them as much as possible. Disposition To be determined; first choice is home with sons if possible Resuscitation Status Resuscitation Status: DNR/DNI:Do Not Resuscitate/Intubate POLST Updates/Changes Previous POLST?: No . Advanced Care Planning Address: POLST Pain: Moderate Symptom management: Anxiety, Drowsiness/sleepiness, Pain Total time 120 minutes; >50% face to face with patient and/or family, providing counselling regarding plans and recommendations, and in care coordination with his/her medical teams. Of this 45 minutes was spent counseling for advanced care planning with the patient/the patients family/the surrogate decision maker. copies to: Rebecca Valladares PA-C; Dale William MD Palliative Brief Note Date of Service Jan 18, 2017 . See yesterday's note regarding plans/recommendations. Update as follows: Family meeting about dispositions held today with patient, daughter Marylin, sons Connor and Sabrina. (Sabrina had to leave during meeting so not present for most of the information session). Information and options discussed as detailed above. Patient able to participate for about 15-30 minutes then too fatigued and asked us to leave. This is consistent with the tolerance she has shown for conversation in the last 24 hours. Generally the patient brings up issues which are minor and not aimed at resolving the bigger issues involving her disposition and medical care, then is too worn out to continue the more difficult part of the conversation. Karena Clemens Jan 18, 2017 11:37
[2017-01-18] MEDS: Ondansetron 2 mg/mL 2 mL Inj IVPUSH PRN (17:38)
--- NOTE | 2017-01-18 19:20 | PROG NOTE ---
[address] [address] PROGRESS NOTE PATIENT: ROBERT RAMIREZ : 1950 MR#: [id number] ADMIT: 01/11/2017 JOB ID: [id number] DATE: 01/18/2017 INPATIENT MEDICAL ONCOLOGY PROGRESS NOTE: DIAGNOSIS: Progressive hepatic failure due to infiltrative metastatic breast cancer involving liver. SUBJECTIVE: Today she feels and looks worse than yesterday. She complains of nausea and is restless. She complains of abdominal distention and discomfort. OBJECTIVE: She appears restless. She remains oriented x3. She remains bed-bound. Abdomen is mildly to moderately distended. LABORATORIES: Bilirubin further kimberly to 8.9 today. AST, ALT, and alkaline phosphatase have all slightly risen. Albumin is severely low at 2.1 and creatinine 1.32. Leukocytosis and lymphopenia, with otherwise normal CBC. IMPRESSION AND PLAN: A 66-year-old severely ill woman with hepatic failure associated with encephalopathy, ascites, coagulopathy, and progressive jaundice. She was given a dose of Doxil infusion with 50% dose reduction yesterday. She remains severely ill, with very poor prognosis. She complains of abdominal discomfort. I have left an order in the chart for 750 mL FFP to be given tomorrow morning to bring INR down to 1.5 or less and then proceed to ultrasound-guided paracentesis. I discussed her case with Ms. Clemens today. Our plan is to discharge this patient hopefully early next week home with hospice care. I will be the primary physician in charge and available for hospice questions. She will have weekly labs including CBC, chemistry profile, magnesium, LDH, and PT/INR, and I will review those results. If her labs start to improve, and her condition subsequently clinically improves, then we can stop hospice and continue palliative chemotherapy. If her labs and clinical condition deteriorate over the next two weeks, then her survival would be very limited and she would be receiving comfort care at home.
[2017-01-18 20:30] VITALS: PULSE 111; RESP 14; O2SAT 92
[2017-01-18] MEDS: HYDROmorphone 0.5 mg/0.5 mL iSecure Syringe IVPUSH SCH (21:24)
[2017-01-18 21:40] VITALS: BP 155/81; PULSE 94; RESP 16; O2SAT 92
[2017-01-19] VITALS (7 sets, daily range): BP systolic 128–144; BP diastolic 74–80; PULSE 96–108; RESP 16–20; O2SAT 90–94
[2017-01-19] MEDS: Piperacillin-Tazo 3.375 Gm Inj 3.375 GM in Dextrose 5% Minibag Plus 50 ML IV SCH ×3 (01:04→19:47)
[2017-01-19] MEDS: HYDROmorphone 0.5 mg/0.5 mL iSecure Syringe IVPUSH SCH ×6 (01:05→19:44)
[2017-01-19 05:11] LABS: EOSINOPHILS % (AUTO) 0 % (0-5); Mean Corpuscular Hemoglobin 32.7 pg (27.0-35.0); Platelet Count 122 bil/L (150-400)
[2017-01-19 05:22] LABS: INR 1.67 ratio
[2017-01-19 05:39] LABS: BASOPHILS % (AUTO) 0 % (0-3); MONOCYTES % (AUTO) 15 % (4-12); NEUTROPHILS % (AUTO) 69 % (40-74)
--- NOTE | 2017-01-19 06:56 | NUR ---
Confusion Patient is confused at times, pulling at IV and O2 lines. Patient often impulsive trying to jump up OOB, but not really sure why when asked. Patient up independent to bedside commode, standby assist. patient states pain is under control with Dilaudid q4. Care continues.
[2017-01-19] MEDS ORDERED: 0.9% Sodium Chloride 100 ML ONE (07:44)
[2017-01-19] MEDS: Lactulose 20 Gm/30 mL 30 mL Syrup PO SCH ×3 (08:30→20:04)
[2017-01-19] MEDS: Acyclovir 400 mg Tablet PO SCH (09:12)
[2017-01-19] MEDS: Fluticasone-Salmeterol 100-50 Inhaler INHALATION SCH ×2 (09:20→20:03)
--- NOTE | 2017-01-19 10:26 | PCM.PNMED ---
Subjective Date of Service Jan 19, 2017 Subjective Patient is in the bed, receiving FFP, will have paracentesis today. Exam Vital Signs Vital Sign - Last Date Time Temp Pulse Resp B/P Pulse Ox O2 Delivery O2 Flow Rate FiO2 01/19/17 09:02 36.4 101 20 134/77 01/19/17 08:25 93 Room Air 01/19/17 06:25 5.00 Intake and Output 01/18/17 01/18/17 01/19/17 Cumulative From/Thru 15:00 23:00 07:00 01/11/17 12:48 - 01/19/17 06:47 Intake Total 320 ml 411 ml 09061 ml Output Total 250 ml 5210 ml Balance 70 ml 411 ml 9280 ml Intake Oral 320 ml 7745 ml IV Total 411 ml 6745 ml Output Urine Total 250 ml 2700 ml Urine/Stool Mix 2510 ml # Voids 16 # Bowel Movements 0 5 Exam GENERAL: Alert, not in distress, weak HEAD: atraumatic, normocephalic EYES: EOMI, icteric, able to fully open and close eyelids SKIN: Skin color- yellowish, turgor normal. No visible rashes EAR, NOSE, MOUTH, THROAT: Lips, oral mucosa, tongue are moist, pink, no lesions NECK: no jugulovenous distention; supple ROM normal. RESPIRATORY: Lungs clear to auscultation. Good diaphragmatic excursion. CARDIAC: normal S1 and S2; no rubs, or gallops; regular rhythm ABDOMEN: Abdomen soft, non-tender, mildly distended. BS normal. MUSCULOSKELETAL: ROM full, muscles are not tender EXTREMITIES: no pitting edema in LE, no new deformities NEURO: Alert, oriented X 3, Cranial nerves II-XII intact, Grossly normal motor function. PULSES: 2+ radial, 2+ carotid REVIEW OF SYSTEMS: GENERAL: + malaise, no fevers., SEE HPI HEENT: Negative for frequent or significant headaches All other reviewed and negative other than HPI. IVs and Medications Medications Reviewed: Medications were reviewed in detail Lab and Diagnostics Result Diagram: 01/19/1744901/19/17 045 X-Rays, CTs and MRIs PROCEDURE: CT BRAIN WITHOUT CONTRAST ([id number]) INDICATIONS: altered LOC, h/o met CA IMPRESSION: No acute intracranial abnormality. Dictated by: Gonzales Jerome M.D. on 01/11/2017 at 12:43 PROCEDURE: US ABDOMEN, LIMITED ([id number]) INDICATIONS: Ascites, liver disease due to metastatic breast ca IMPRESSION: Ascites. Mild ascites is insufficient for paracentesis. Dictated by: Kathrine Giron MD, PhD on 01/12/2017 at 10:37 PROCEDURE: CT ANGIO CHEST PULMONARY EMBOLISM ([id number]) INDICATIONS: r/o PE ,d-dimer 23 IMPRESSION: 1. No pulmonary embolus. 2. Bilateral pneumonia with small parapneumonic effusions bilaterally. 3. Increased hepatic metastatic disease. Increased ascites. 4. Severe diffuse skeletal metastases. Dictated by: Otilio León M.D. on 01/13/2017 at 12:57 Assessment & Plan 66-year-old lady with past medical history of metastatic breast cancer( extensive metastases to liver and bone) presented to emergency room due to Nausea, vomiting,Generalized weakness and Lightheadedness, confusion of few days Acute hypoxic respiratory failure due to hepatopulmonary syndrome versus HCAP. Metastatic breast cancer( extensive metastases to liver and bone) - stable - D-dimers were elevated at [address] which was negative for PE - Patient was started on zosyn to cover for HCAp given additional CT finding of possible pna,consulted ID. Plan to treat for 5 days, last day 01/17 - Infectious disease and oncology were consulted - Palliative care consulted Plan - FFP, Paracentesis if INR is below 1.5 - pain and anxiety meds - Hold antibiotics and monitor - Patient probably will be discharge next week on hospice with Oncology follow up. Hepatic encephalopathy - Improving Plan -lactlose tid , titrate to 2-3 bowel movements a day Dehydration with lactic acidosis - resolved Intractable nausea and vomiting - Improved -due to cancer/mets -zofran and reglan prn Hyponatremia - Stable - Monitor Thrombocytopenia - Secondary to liver metastases - Monitor DVT PROPHYLAXIS: SCD Code status: DO NOT RESUSCITATE/DO NOT INTUBATE as per family and patient wishes. Patient will be discharge next week on hospice with Oncology follow up. Disposition: discharge in 2-3 days after patient improves. Plan of care discussed with patient, nurse, treatment team; Labs, radiology tests reviewed. Plan of care, diagnostic procedures and available alternatives were discussed and reviewed with patient. All questions answered. Patient verbalized understanding, approved and agreed to plan of care. VTE Prophylaxis: Sub-Q Enoxaparin VTE Mechanical Devices: Intermittant Pneumatic CD Resuscitation Status: DNR/DNI:Do Not Resuscitate/Intubate José Miguel Saravia MD Jan 19, 2017 10:26
[2017-01-19 11:39] LABS: INR 1.59 ratio
--- NOTE | 2017-01-19 14:36 | DRSVH ---
PROCEDURE: US ABDOMEN, LIMITED ([id number]) INDICATIONS: EVALUATE FLUID AMOUNT FOR PARACENTESIS TECHNIQUE: Real-time focused scanning was performed of the abdomen, with image documentation. COMPARISON: None. FINDINGS: Mild fluid is present within the left lower and midlung portion of the abdomen. Mild to mod erate fluid is noted within the right lower quadrant. Overall quantity of fluid is felt to be insuffi cient for a therapeutic paracentesis. IMPRESSION: Mild to moderate fluid as above felt to be insufficient for therapeutic paracentesis. Dictated by: Fanny Moran M.D. on 01/19/2017 at 14:33 Approved by: Fanny Moran M.D. on 01/19/2017 at 14:34
[2017-01-19] MEDS: HYDROmorphone 1 mg/mL Inj IVPUSH PRN ×2 (15:10→21:10)
--- NOTE | 2017-01-19 19:55 | NUR ---
Confusion/restless/FFP Patient with increased confusion today trying to pull apart picc line . Patient reoriented but forgets easily trying to pack her belongings and putting her shoes on requesting to go home. Patient received FFP this am goal to get INR < 1.5 so paracentesis can be done. Dr William called regarding FFP order of 750 mls to be given when 1 unit is only a little over 300 mls and only 1 unit was ordered. INR level 1.59 after first unit given. Radiologist requesting another unit be given to get to level below 1.5 . @unit unit ordered and hung. Vitals remained stable although patient refusing to wear 02 as needed so saturations drop to mid to upper 80's on room air. Patient encouraged to leave on. Sitter had to be called in for patients safety as unsteady when up and impulsive.
[2017-01-20] MEDS: HYDROmorphone 0.5 mg/0.5 mL iSecure Syringe IVPUSH SCH ×7 (00:29→21:48)
[2017-01-20] MEDS: Piperacillin-Tazo 3.375 Gm Inj 3.375 GM in Dextrose 5% Minibag Plus 50 ML IV SCH ×2 (03:01→10:28)
[2017-01-20 04:16] VITALS: BP 149/81; PULSE 99; RESP 20; O2SAT 91
--- NOTE | 2017-01-20 05:45 | NUR ---
Pain/ Mentation Pt.'s pain has increased. Pt. is reporting pain every 2 hours, and is close to maxing out on the 8 allowed doses of IV Dilaudid. Oxygen via oxymask 5 liters placed on pt. Seems to help pt. be able to breathe better. Pt. is impulsive with trying to pull out lines. Sitter by bedside for safety. Will continue to monitor.
[2017-01-20 07:09] LABS: INR 1.66 ratio
[2017-01-20] MEDS: Acyclovir 400 mg Tablet PO SCH (08:10)
[2017-01-20] MEDS: Fluticasone-Salmeterol 100-50 Inhaler INHALATION SCH ×2 (08:11→21:49)
[2017-01-20] MEDS: Lactulose 20 Gm/30 mL 30 mL Syrup PO SCH ×3 (08:30→20:30)
[2017-01-20 08:34] VITALS: BP 148/81; PULSE 104; RESP 18; O2SAT 93
[2017-01-20] MEDS: HYDROmorphone 1 mg/mL Inj IVPUSH PRN ×2 (10:28→15:20)
[2017-01-20 13:01] VITALS: BP 155/90; PULSE 107; RESP 18; O2SAT 90
--- NOTE | 2017-01-20 13:32 | PCM.PNMED ---
Subjective Date of Service Jan 20, 2017 Subjective Patient is independent, confused. She she had 1 unit of B yesterday, paracentesis was scheduled, it was not done because she did not have a lot of fluid in the stomach. Patient is intermittently confused, on 1:1. Patient is refusing medications for the time. Exam Vital Signs Vital Sign - Last Date Time Temp Pulse Resp B/P Pulse Ox O2 Delivery O2 Flow Rate FiO2 01/20/17 13:01 36.6 107 18 155/90 90 Room Air 01/19/17 06:25 5.00 Intake and Output 01/19/17 01/19/17 01/20/17 Cumulative From/Thru 15:00 23:00 07:00 01/11/17 12:48 - 01/20/17 06:44 Intake Total 611 ml 788 ml 560 ml 85910 ml Output Total 250 ml 200 ml 325 ml 5985 ml Balance 361 ml 588 ml 235 ml 72442 ml Intake Oral 200 ml 0 ml 7945 ml IV Total 100 ml 477 ml 560 ml 7882 ml Packed Cells 311 ml 311 ml FFP 311 ml 311 ml Output Urine Total 250 ml 200 ml 325 ml 3475 ml Urine/Stool Mix 2510 ml # Voids 1 2 19 # Bowel Movements 0 1 6 Exam GENERAL: Alert, confused, weak HEAD: atraumatic, normocephalic EYES: EOMI, icteric, able to fully open and close eyelids SKIN: Skin color- yellowish, turgor normal. EAR, NOSE, MOUTH, THROAT: Lips, oral mucosa, tongue are moist, pink, no lesions NECK: no jugulovenous distention; supple ROM normal. RESPIRATORY: Lungs clear to auscultation. Good diaphragmatic excursion. CARDIAC: normal S1 and S2; no rubs, or gallops; regular rhythm ABDOMEN: Abdomen soft, tender, mildly distended. BS normal. MUSCULOSKELETAL: ROM full, muscles are not tender EXTREMITIES: no pitting edema in LE NEURO: Alert, oriented X 1, Cranial nerves II-XII intact, Grossly normal motor function. PULSES: 2+ radial, 2+ carotid REVIEW OF SYSTEMS: GENERAL: + malaise, no fevers., SEE HPI HEENT: Negative for frequent or significant headaches All other reviewed and negative other than HPI. Lab and Diagnostics Result Diagram: 01/19/1744901/19/17 0450 X-Rays, CTs and MRIs PROCEDURE: CT BRAIN WITHOUT CONTRAST ([id number]) INDICATIONS: altered LOC, h/o met CA IMPRESSION: No acute intracranial abnormality. Dictated by: Gonzales Jerome M.D. on 01/11/2017 at 12:43 PROCEDURE: US ABDOMEN, LIMITED ([id number]) INDICATIONS: Ascites, liver disease due to metastatic breast ca IMPRESSION: Ascites. Mild ascites is insufficient for paracentesis. Dictated by: Kathrine Giron MD, PhD on 01/12/2017 at 10:37 PROCEDURE: CT ANGIO CHEST PULMONARY EMBOLISM ([id number]) INDICATIONS: r/o PE ,d-dimer 23 IMPRESSION: 1. No pulmonary embolus. 2. Bilateral pneumonia with small parapneumonic effusions bilaterally. 3. Increased hepatic metastatic disease. Increased ascites. 4. Severe diffuse skeletal metastases. Dictated by: Otilio León M.D. on 01/13/2017 at 12:57 Assessment & Plan 66-year-old lady with past medical history of metastatic breast cancer( extensive metastases to liver and bone) presented to emergency room due to Nausea, vomiting,Generalized weakness and Lightheadedness, confusion of few days Acute hypoxic respiratory failure due to hepatopulmonary syndrome versus HCAP. Metastatic breast cancer( extensive metastases to liver and bone) - stable - D-dimers were elevated at [address] which was negative for PE - Patient was started on zosyn to cover for HCAp given additional CT finding of possible pna,consulted ID. Plan to treat for 5 days, last day 01/17 - Infectious disease and oncology were consulted - Palliative care consulted Plan - c/w pain and anxiety meds - Patient probably will be discharge on hospice with Oncology follow up soon Hepatic encephalopathy - worsening , patinet is refusing Lactulose. Plan -lactlose tid , titrate to 2-3 bowel movements a day Dehydration with lactic acidosis - resolved Intractable nausea and vomiting - Improved -due to cancer/mets -zofran and reglan prn Hyponatremia - Stable - Monitor Thrombocytopenia - Secondary to liver metastases - Monitor DVT PROPHYLAXIS: SCD Code status: DO NOT RESUSCITATE/DO NOT INTUBATE as per family and patient wishes. Patient will be discharge next week on hospice with Oncology follow up. Disposition: discharge in 2-3 days after patient improves. Plan of care discussed with patient, nurse, treatment team; Labs, radiology tests reviewed. Plan of care, diagnostic procedures and available alternatives were discussed and reviewed with patient. All questions answered. VTE Prophylaxis: Sub-Q Enoxaparin VTE Mechanical Devices: Intermittant Pneumatic CD Resuscitation Status: DNR/DNI:Do Not Resuscitate/Intubate José Miguel Saravia MD Jan 20, 2017 13:32
[2017-01-20 14:15] VITALS: BP 132/70; PULSE 90; RESP 18; O2SAT 90
--- NOTE | 2017-01-20 15:58 | NUR ---
Social Work: Continued Discharge Planning/Multidisciplinary Rounds D: EMR reviewed. Pt is on day 9 of hospitalization. Palliative Care continues to follow pt. See latest Palliative Care note for comprehensive explanation of discharge options. [facility] as both have agreed to take on patient for hospice services while she is receiving chemotherapy. Pt is likely to before next scheduled chemo infusion. Per Palliative Cares note, pt's sons are likely to provide care for pt at home but it is unclear if they understand the level of care that pt will require. Pt currently has a sitter as she is confused and impulsive. SW attempted to meet with pt at bedside to discern which hospice organization she would like to use. Pt was observed to be impulsive, moving around the room quickly and steadily from chair to bed and back again. Sitter was assisting patient often as SBA. SW attempted to engage pt multiple times in conversation, pt complained of pain frequently. Pt ultimately was not able to meaningfully participate with TOOL LAPPER HAND in this conversation. T/C to pt's daughter Marylin to discuss options, hospice, and discharge plan. Left message for Marylin requesting return call. No return call at the time of this note. SW will continue to follow. At this time, pt is likely to discharge with hospice services in place, Dr. William to follow as pt's primary doctor for hospice services and also manage her palliative chemo infusions. Pt's prognosis is poor. SW will need to determine the following things: 1) where will pt discharge to open with hospice (whose home vs. SNF given level of care) 2) who will be pt's primary caregivers and do they understand the level of care needed 3) which hospice organization would the pt and family like to use at discharge 4) is the patient going to be medically appropriate to discharge A: Pt who is independent at baseline, likely to discharge with hospice services in place. P: Evolving; pt anticipated to go home on hospice and continue with palliative chemotherapy. [facility] and [facility] accepted pt, Palliative Care is following closely. SW to discern the above questions in regards to d/c planning. LATRICE Turner
--- NOTE | 2017-01-20 16:32 | NUR ---
MENTATION/ACTIVITY Patient is alert and oriented to person and place only. Confused and impulsive. Patient attempted to tug on IV line several times this shift. Sitter is at the bedside. Complains of pain. Rating it as 8/10. Unable to verbalize an acceptable pain level for her. Poor appetite. Denies nausea. No emesis noted. Denies SOB. Ambulating with SBA in the room. Sitter is at the bedside.
[2017-01-20 18:54] VITALS: BP 149/79; PULSE 111; RESP 18; O2SAT 90
[2017-01-20] MEDS ORDERED: Haloperidol 5 mg/mL Inj ONE (18:54)
[2017-01-20 19:00] VITALS: O2SAT 92
[2017-01-20] MEDS ORDERED: Haloperidol 5 mg/mL Inj IV ONE (19:05)
--- NOTE | 2017-01-20 19:29 | NUR ---
FALL/MD NOTIFICATION Patient was agitated and sitter was at the bedside. Per patients sitter patient suddenly stood and ambulated towards the hallway and she was unable to restrain the patient. Patient was noted to fall in the hallway and hit her R shoulder. Upon assessment patient is able to move her R extremity without pain. Transferred back to the room via a wheelchair. Patient continues to be restless and agitated. Dr. Saravia made aware. New order for Haldol IV and RA XR received. Care endorsed to Remi Espinosa RN. Addendum: 01/20/17 at 1953 by MARLY MARIEE RN FAMILY NOTIFICATION SUMIT Deutsch made aware RE: Fall. Xray pending.
--- NOTE | 2017-01-20 19:59 | DRSVH ---
PROCEDURE: X-RAY RIGHT FOREARM, TWO VIEWS ([id number]) INDICATIONS: PAIN FROM HOSPITAL GLF TECHNIQUE: 2 views of the forearm were acquired. COMPARISON: None. FINDINGS: Bones: No fractures or dislocations. No suspicious bony lesions. Soft tissues: No suspicious soft tissue calcifications or masses. IMPRESSION: No visualized acute fracture or dislocation. However, if clinical concern and/or pain pe rsist, short interval imaging followup in 7-10 days is recommended, as occult injury cannot be defini tively excluded. Dictated by: Fanny Moran M.D. on 01/20/2017 at 19:58 Approved by: Fanny Moran M.D. on 01/20/2017 at 19:58
--- NOTE | 2017-01-20 20:00 | DRSVH ---
PROCEDURE: X-RAY RIGHT SHOULDER, ONE VIEW ([id number]) INDICATIONS: PAIN FROM HOSPITAL GLF TECHNIQUE: 1 view of the shoulder were acquired. COMPARISON: None. FINDINGS: Bones: No fractures or dislocations. No suspicious bony lesions. Visualized ribs appear intact. Soft tissues: No suspicious soft tissue calcifications. Right PICC line is present with distal tip overlying the superior vena cava. IMPRESSION: No visualized acute fracture or dislocation. However, if clinical concern and/or pain pe rsist, short interval imaging followup in 7-10 days is recommended, as occult injury cannot be defini tively excluded. Dictated by: Fanny Moran M.D. on 01/20/2017 at 19:58 Approved by: Fanny Moran M.D. on 01/20/2017 at 19:59
--- NOTE | 2017-01-20 20:01 | DRSVH ---
PROCEDURE: X-RAY RIGHT WRIST, TWO VIEWS ([id number]) INDICATIONS: PAIN FROM HOSPITAL GLF TECHNIQUE: 4 views of the wrist were acquired. COMPARISON: None. FINDINGS: Bones: No fractures or dislocations. No suspicious bony lesions. Scaphoid view: No visualized fracture. Soft tissues: No suspicious soft tissue calcifications. IMPRESSION: No visualized acute fracture or dislocation. However, if clinical concern and/or pain pe rsist, short interval imaging followup in 7-10 days is recommended, as occult injury cannot be defini tively excluded. Dictated by: Fanny Moran M.D. on 01/20/2017 at 19:59 Approved by: Fanny Moran M.D. on 01/20/2017 at 19:59
[2017-01-21] MEDS: HYDROmorphone 0.5 mg/0.5 mL iSecure Syringe IVPUSH SCH ×6 (00:30→20:23)
[2017-01-21 03:15] VITALS: BP 138/79; PULSE 113; RESP 18; O2SAT 92
--- NOTE | 2017-01-21 04:16 | NUR ---
Agitation Patient frequently becoming agitated requesting to go home, aide/ assembler finger buffs able redirect with persistence. Alert to self and place, SBA due to instability on feet. Denied pain when routine pain medication due. Bed in low position, call light within reach, frequent rounding to assess pain and agitation.
[2017-01-21] MEDS: Lactulose 20 Gm/30 mL 30 mL Syrup PO SCH ×4 (08:30→20:30)
[2017-01-21] MEDS ORDERED: HYDROmorphone 1 mg/mL 2 mL Solution PO PRN (09:00)
[2017-01-21] MEDS: Acyclovir 400 mg Tablet PO SCH (09:14)
[2017-01-21] MEDS: Fluticasone-Salmeterol 100-50 Inhaler INHALATION SCH ×2 (09:14→20:25)
--- NOTE | 2017-01-21 12:41 | NUR ---
Palliative Care note D/A: Pt discussed with Opal at [facility] this am who noted that official referral to [facility] had not been made and that pt has not had info visit yet. (Review of chart reveals that Karena Clemens XU discussed with medical directors at both [facility] and [facility] who indicated that they thought agency could be of assistance. Note that Karena did not make an official referral to either agency. ) Phone call to gerry Rizzo to discuss above. She has just finished discussion with family regarding choice for hospice and family has chosen [facility]. She will discuss making the official referral with Lyssa Cormier, RYAN paraprofessional education assistant and will ask her to make referral. Dr. Galvan updated. P: Palliative care to follow. Viviane HERNANDEZ, CCM
--- NOTE | 2017-01-21 12:54 | PCM.PNMED ---
Subjective Date of Service Jan 21, 2017 Subjective Patient is in bed, confused. She fell yesterday, she did not hit her head. X- ray of her shoulder, arm and wrist were done, no fractures identified. Patient is refusing her medications intermittently. Leukocytosis is worsening, will send Bx, CBC, CMP. Exam Vital Signs Vital Sign - Last Date Time Temp Pulse Resp B/P Pulse Ox O2 Delivery O2 Flow Rate FiO2 01/21/17 03:15 36.5 113 18 138/79 92 Room Air 01/19/17 06:25 5.00 Intake and Output 01/20/17 01/20/17 01/21/17 Cumulative From/Thru 15:00 23:00 07:00 01/11/17 12:48 - 01/21/17 06:25 Intake Total 275 ml 150 ml 90695 ml Output Total 50 ml 6035 ml Balance 225 ml 150 ml 84404 ml Intake Oral 90 ml 150 ml 8185 ml IV Total 185 ml 8067 ml Packed Cells 311 ml FFP 311 ml Output Urine Total 50 ml 3525 ml Urine/Stool Mix 2510 ml # Voids 3 5 27 # Bowel Movements 0 6 Exam GENERAL: confused, weak, in bed HEAD: atraumatic, normocephalic EYES: EOMI, icteric, able to fully open and close eyelids SKIN: Skin color- yellowish, turgor normal. EAR, NOSE, MOUTH, THROAT: Lips, oral mucosa, tongue are moist, pink, no lesions NECK: no jugulovenous distention; supple ROM normal. RESPIRATORY: Lungs clear to auscultation. Good diaphragmatic excursion. CARDIAC: normal S1 and S2; no rubs, or gallops; regular rhythm ABDOMEN: Abdomen soft, tender, mildly distended. BS normal. MUSCULOSKELETAL: ROM full, muscles are not tender EXTREMITIES: no pitting edema in LE NEURO: Alert, oriented X 1, Cranial nerves II-XII intact, Grossly normal motor function. PULSES: 2+ radial, 2+ carotid REVIEW OF SYSTEMS: GENERAL: + malaise, no fevers, SEE HPI HEENT: Negative for frequent or significant headaches All other reviewed and negative other than HPI. IVs and Medications Medications Reviewed: Medications were reviewed in detail Lab and Diagnostics Result Diagram: 01/19/17 04501/19/17 0450 X-Rays, CTs and MRIs PROCEDURE: CT BRAIN WITHOUT CONTRAST ([id number]) INDICATIONS: altered LOC, h/o met CA IMPRESSION: No acute intracranial abnormality. Dictated by: Gonzales Jerome M.D. on 01/11/2017 at 12:43 PROCEDURE: US ABDOMEN, LIMITED ([id number]) INDICATIONS: Ascites, liver disease due to metastatic breast ca IMPRESSION: Ascites. Mild ascites is insufficient for paracentesis. Dictated by: Kathrine Giron MD, PhD on 01/12/2017 at 10:37 PROCEDURE: CT ANGIO CHEST PULMONARY EMBOLISM ([id number]) INDICATIONS: r/o PE ,d-dimer 23 IMPRESSION: 1. No pulmonary embolus. 2. Bilateral pneumonia with small parapneumonic effusions bilaterally. 3. Increased hepatic metastatic disease. Increased ascites. 4. Severe diffuse skeletal metastases. Dictated by: Otilio León M.D. on 01/13/2017 at 12:57 Assessment & Plan 66-year-old lady with past medical history of metastatic breast cancer( extensive metastases to liver and bone) presented to emergency room due to Nausea, vomiting,Generalized weakness and Lightheadedness, confusion of few days Acute hypoxic respiratory failure due to hepatopulmonary syndrome versus HCAP. Metastatic breast cancer( extensive metastases to liver and bone) - stable - D-dimers were elevated at [address] which was negative for PE - Patient was started on zosyn to cover for HCAp given additional CT finding of possible pna,consulted ID. Plan to treat for 5 days, last day 01/17 - Infectious disease and oncology were consulted - Palliative care consulted Plan - c/w pain and anxiety meds - Patient probably will be discharge on hospice with Oncology follow up soon Leukocytosis is worsening - probably related to her cancer - will send Bx , hold antibiotics for now Hepatic encephalopathy - worsening , patinet is refusing Lactulose. Plan -lactlose tid , titrate to 2-3 bowel movements a day - 1:1 if needed Intractable nausea and vomiting - Improved - due to cancer/mets -zofran and reglan prn Hyponatremia - Stable - Monitor, CMP was sent Thrombocytopenia - Secondary to liver metastases - Monitor, CBC were sent DVT PROPHYLAXIS: SCD Code status: DO NOT RESUSCITATE/DO NOT INTUBATE as per family and patient wishes. Patient will be discharge next week on hospice with Oncology follow up. Disposition: discharge in 2-3 days after patient improves. Plan of care discussed with patient, nurse, treatment team; Labs, radiology tests reviewed. Plan of care, diagnostic procedures and available alternatives were discussed and reviewed with patient. All questions answered. VTE Prophylaxis: Sub-Q Enoxaparin VTE Mechanical Devices: Intermittant Pneumatic CD Resuscitation Status: DNR/DNI:Do Not Resuscitate/Intubate José Miguel Saravia MD Jan 21, 2017 12:54
[2017-01-21 13:46] VITALS: BP 122/78; PULSE 98; RESP 18; O2SAT 92
--- NOTE | 2017-01-21 13:48 | PCM.PALLBR ---
Palliative Care Recommendation Unfortunate 66-year-old lady with metastatic estrogen receptor positive breast cancer, admitted with progressive hepatic failure with encephalopathy, coagulopathy, etc. Palliative medicine consulted to assist with symptom management and review of goals of care. Patient requested DNR/DNI status several days prior to palliative consultation as she continued to deteriorate, but has also requested continued palliative chemotherapy in hopes that it will buy her some more time so that she can complete arrangements for her family. She has received her first dose of Doxil at 25 mg/m2 IV, which is a 50% dose in the hopes that this might induce a response and could lead to improvement in her liver failure and hopefully extended survival. Per Dr. William , "without chemotherapy, this patient's prognosis is very poor and probably measured in days to a few weeks". He also stated "if she is sharee, this [treatment] could give her [a few ] months." She understands the risks and she received the first infusion last week Her family is hopeful that they will have more time with her but understand that this is not a cure. They are overwhelmed with the questions of what her care needs will be, how to proceed if she does not respond and how they will know, what help will be available if her is more imminent. See discussion below regarding symptom management and discharge planning recommendations. I have highlighted input from Dr. William regarding hospice plan of care. Summary of palliative recommendations: -Symptom management (Pain/other)- The patient has been reluctant to use pain medications despite ongoing discomfort. In discussing her pain needs with her oncologist, Dr. Lawrence, he earlier noted the significance of her liver failure in processing medications and strongly advised that NO LONG-ACTING medications be used and that, for the time being, the shortest acting form of hydromorphone. ie IV, is the safest for her. Today, when I was speaking with her, she indicated she might want to try oral hydromorphone again, and so prn orders for hydromorphone liquid were placed. We will continue to follow and adjust pain medications as needed. Disposition: As of 01/18, family plan was to return home where her two sons live with her and can provide 24 hour care. Per palliative MANAGER OF COMPENSATION on 01/21, "...choice for hospice and family has chosen [facility]. She will discuss making the official referral with Lyssa Cormier, UR zoning assistant and will ask her to make referral." There remains concern about the burden of care on her two sons, one of whom seem unable to grasp what his duties might entail. The other son seemed more capable, asking appropriate questions. On 01/18, palliative provider discussed the care options as follows: 1) Home health could follow the patient in-home for med management, safety, family training, and the needed intermittent care needed for management in the interim month before her next chemo. This would include assessment of ascites and arranging paracentesis prn as well as other blood draws, assisting the family with transport for medical appointments and procedures as needed etc. Given the fact that this service does not include 24 hour access; the family understands that they would have to access emergency services (911) if the patient had increased needs during the nights or weekends. 2) SNF could be an option if the burden of care was too high. [facility] and [facility] are both close by and could provide care. It is to be noted that [facility] would not allow IV pain medications but we do not anticipate the need for this currently. 3) A third option of initiating hospice care is being explored. Even though the current plan is for the patient to receive monthly chemo, she faces a high risk of dying from her liver failure before the next treatment is due. The family is aware of these options UPDATE as of 1800 on 01/18: Dr. William has been called; his response/input is as follows: --Dr. William feels hospice support is appropriate for this patient on discharge as she has a high risk of dying before her next chemo treatment. --He does not plan to see her but would ask for the following weekly labs to be drawn and faxed to his office on consecutive Mondays post discharge. --CBC, CMP, PT/INR, Mg++, LDH --He plans to have paracentesis done before discharge. He is not in favor of placing an indwelling catheter in her abdomen, but agrees that this could be revisited if her need for paracentesis became burdensome. --He does not think she will need transfusions in the interim month, nor does he plan CT or MRI monitoring of her cancer. -DPOA/Advanced Directives/POLST- DNR/DNI per conversations with her hospitalist earlier in the week. We are considering whether she would qualify for a transition to hospice care as noted above. --Will plan on assisting her in completing a POLST prior to discharge. Additional Medical Diagnoses with primary management by Hospitalist team include : # Acute hypoxic respiratory failure,poa # Possible HCAP, infectious disease consultation pending # hepatic encephalopathy ,acute,poa, improved # dehydration with lactic acidosis ,acute,poa resolved # Intractable nausea and vomiting ,acute,poa, improved # metastatic breast cancer( extensive metastases to liver and bone) Problems: End of Life Preferences DNR/DNI. Goals of Care Patient hopes to stabilize and then recover sufficiently to return to her home with her sons. She is hoping for as much time as she can get but able to state that she knows she may have very little time. She wants to see her family and be with them as much as possible. Disposition To be determined; first choice is home with sons if possible Resuscitation Status Resuscitation Status: DNR/DNI:Do Not Resuscitate/Intubate POLST Updates/Changes Previous POLST?: No . Pain: Moderate Symptom management: Pain, Delirium Total time 45 minutes; >50% face to face with patient, providing counselling regarding plans and recommendations, and in care coordination with her medical teams. Of the above total time, 10 minutes counseling for advanced care planning with the patient Palliative Brief Note Date of Service Jan 21, 2017 . Return to reevaluate patient. Prior to visiting, reviewed her updated records in the EMR in detail and spoke with her nurse. Events of the weekend reviewed. When I arrived, patient was lying in bed, appeared to be in no distress. She continued to complain of pain but refused to take scheduled pain medications. Is concerned about potential for habituation/addiction and states repeatedly "I don't want to do that for the sake of my family". Tried to talk with her about her comfort being the primary good and goal at this time but she remained adamant about not taking additional pain medication. Also expressed wish to not use lorazepam or other tranquilizing/sedating agents. She inquired about future plans for chemotherapy and I tried to review those with her. She incompletely grasps her overall prognosis. On exam, an ill-appearing woman lying in bed, jaundiced. Vital signs noted. Skin jaundiced but warm and dry. Head and neck exam without acute focal findings. Lungs with a few dependent crackles, heart sounds regular and rapid, abdomen is distended but not tense, with diffuse mild tenderness. Lower extremities with edema. Last laboratories from 01/19 showed worsening hepatic and renal failure. Darren Galvan MD Jan 21, 2017 13:39
--- NOTE | 2017-01-21 13:55 | NUR ---
NUTRITION FOLLOW-UP: ASSESS: 66 YO female presents with nausea and vomiting x 1-1/2 weeks, generalized weakness, lightheadedness and confusion for several days. Pt with progressive hepatic failure secondary to extensive metastatic breast cancer to liver and bone with ascites, jaundice and encephalopathy. Pt hepatic encephalopathy has worsened; refusing lactulose, has sitter, confused and oriented to person and place only per RN notes. Palliative care notes indicate pt now DNR/DNI with plans to discharge on hospice, pending approval, anticipation of chemo if pt makes it. PMHx: Metastatic breast cancer with liver and osseous involvement, diagnosed September 2015, just starting Ibrance, asthma, PTSD. DIET: General, Ensure B and D trays, yogurt at lunch. PO refusal. Poor appetite noted, + confusion. LABS: Reviewed. Na 127, AST 609,ALT 164, Alk Phos 297, Alb 2.2, BUN Cr 1.86,Glu 141 MEDICATIONS: Reviewed GI symptoms / stool: BM x 1 (01/19) Skin Integrity: No issues reported. ANTHROPOMETRICS: Current Wt: 89.2 kg (bed scale) Admit wt: 82.7 kg. (stated wt) ESTIMATED NEEDS (CANCER): Calories: 2068 - 2482 kcal (25 - 30 kcal / kg BW) Protein: 83 - 124 g protein (1.0 - 1.5 g / kg BW) NUTRITION DIAGNOSIS: 1) Inadequate oral intake related to decreased appetite as evidenced by minimal intake of bites x 10 days--PERSISTS. INTERVENTION: 1) Continue Ensure and yogurt on trays. 2) Pt continues with poor oral intake, confusion, would question appropriateness of nutrition support given pt decision for DNR/DNI, hospice with poor prognosis noted. MONITOR/EVALUATE: Continue to monitor, address any nutrition concerns as able. F/U PRN.
--- NOTE | 2017-01-21 14:07 | NUR ---
Social Work: Continued Discharge Planning/Multidisciplinary Rounds D: EMR reviewed. Pt is on day 10 of hospitalization. SW received T/C from pt's Daughter Marylin stating family and pt has chosen [facility] . SW placed referral T/C to [facility]. [facility] requested H&P, Palliative update notes, facesheet, and progress notes to [phone]. NOLBERTO updated [employer] who faxed referral ppw to [facility]. [facility] confirmed they have a spot open Saturday but possible spot available tomorrow - [facility] requested fax cover sheet to be marked urgent. Fax cover sheet marked urgent. SW will await to hear from [facility] regarding opening date. SW will continue to follow. At this time, pt is likely to discharge with hospice services in place, Dr. William to follow as pt's primary doctor for hospice services and also manage her palliative chemo infusions. Pt's prognosis is poor. SW will need to determine the following things: 1) where will pt discharge to open with hospice - pt will discharge home with daughter and sons to provide care - address correct and verified on face-sheet. 2) who will be pt's primary caregivers and do they understand the level of care needed - pt's primary caregivers will be rotation between sons and daughter. Daughter Marylin confirmed that she and her brothers understand the level of care necessary and have gone over care with palliative team. 3) which hospice organization would the pt and family like to use at discharge - pt and family have chosen [facility]. 4) is the patient going to be medically appropriate to discharge - pt is medically appropriate for discharge home with hospice per MD. A: Pt for whom hospice is medically necessary. P: Evolving; pt anticipated to go home on hospice and continue with palliative chemotherapy. NOLBERTO sent urgent referral to [facility] - intake stated if ppw referral is marked urgent, pt may be able to open tomorrow - if not tomorrow 01/23. SW to await return call from [facility]. LATRICE Kwong
--- NOTE | 2017-01-21 14:34 | NUR ---
NEW HOSPICE REFERRAL : Faxed clinicals to [facility] [phone] ATTN:INTAKE. Marked as urgent patient will be discharging tomorrow and needs an opening tomorrow. Will follow up on 01/22/17 with fax which will include all the discharge orders. Updated INFORMATION SUPPORT PROJECT MANAGER
[2017-01-21 15:50] LABS: Mean Corpuscular Hemoglobin 33.3 pg (27.0-35.0); Mean Corpuscular Volume 93.5 fL (81-100)
[2017-01-21] MEDS: HYDROmorphone 1 mg/mL Inj IVPUSH PRN (16:49)
--- NOTE | 2017-01-21 18:18 | NUR ---
MENTATION Patient continues to refuse lactulose, advised of risks and benefits. Confused and disoriented throughout the day but easily reoriented and re directed. 1:1 sitter with patient all day. Compliant with care. Labs and blood cultures drawn. Patient is anxious to get home. Medicated with Dilaudid 0.5mg Q4H. Did not request any additional pain medication. Slept on and off throughout the day.
[2017-01-21 22:00] VITALS: BP 131/75; PULSE 74; RESP 16; O2SAT 95
[2017-01-22] MEDS: HYDROmorphone 0.5 mg/0.5 mL iSecure Syringe IVPUSH SCH ×6 (00:30→20:00)
[2017-01-22 05:30] VITALS: BP 122/73; PULSE 105; RESP 16; O2SAT 93
--- NOTE | 2017-01-22 05:45 | NUR ---
Activity Patient remained in bed through out shift. noted decrease in agitation this shift in comparison with previous evening. Patient still voiced desire to go home. Frequently requesting discharge details. Advocacy Director in room, no noted discomfort at this time. Denied need for pain medications through out night. Care Continue.
[2017-01-22] MEDS: Lactulose 20 Gm/30 mL 30 mL Syrup PO SCH ×3 (08:30→20:00)
[2017-01-22] MEDS: Fluticasone-Salmeterol 100-50 Inhaler INHALATION SCH ×2 (08:30→20:00)
--- NOTE | 2017-01-22 09:02 | NUR ---
Social Work- Update Note Telephone call to Rebecca at [facility] [phone] regarding referral and open date. [facility] has not processed the referral yet, will process it today and work on equipment delivery. Anticipating d/c tomorrow at the earliest. PUPPET ENGINEER contact information confirmed with [facility] for return call. SW will continue to follow. LATRICE Turner
[2017-01-22 09:13] VITALS: BP 126/79; PULSE 98; RESP 16; O2SAT 90
[2017-01-22] MEDS: Acyclovir 400 mg Tablet PO SCH (10:08)
--- NOTE | 2017-01-22 13:27 | PCM.PNMED ---
Subjective Date of Service Jan 22, 2017 Subjective Patient is in bed, confused, sitter at the bedside. Blood cultures were sent yesterday, pending. Patient refused lactulose and blood draws. Exam Vital Signs Vital Sign - Last Date Time Temp Pulse Resp B/P Pulse Ox O2 Delivery O2 Flow Rate FiO2 01/22/17 09:13 36.4 98 16 126/79 90 Room Air 01/19/17 06:25 5.00 Intake and Output 01/21/17 01/21/17 01/22/17 Cumulative From/Thru 15:00 23:00 07:00 01/11/17 12:48 - 01/22/17 05:34 Intake Total 440 ml 270 ml 02829 ml Output Total 6035 ml Balance 440 ml 270 ml 73067 ml Intake Oral 440 ml 270 ml 8895 ml IV Total 8067 ml Packed Cells 311 ml FFP 311 ml Output Urine Total 3525 ml Urine/Stool Mix 2510 ml # Voids 2 4 33 # Bowel Movements 1 1 8 Exam GENERAL: confused, weak, in bed HEAD: atraumatic, normocephalic EYES: EOMI, icteric SKIN: Skin color- yellowish, turgor normal. EAR, NOSE, MOUTH, THROAT: Lips, oral mucosa, tongue are moist, pink, no lesions NECK: no jugulovenous distention; supple ROM normal. RESPIRATORY: Lungs clear to auscultation. Good diaphragmatic excursion. CARDIAC: normal S1 and S2; no rubs, or gallops; regular rhythm ABDOMEN: Abdomen soft, tender, mildly distended. BS normal. MUSCULOSKELETAL: ROM full, muscles are not tender EXTREMITIES: no pitting edema in LE NEURO: Alert, oriented X 1, Cranial nerves II-XII intact, Grossly normal motor function. PULSES: 2+ radial, 2+ carotid REVIEW OF SYSTEMS: GENERAL: + malaise, no fevers, SEE HPI HEENT: Negative for frequent or significant headaches All other reviewed and negative other than HPI. IVs and Medications Medications Reviewed: Medications were reviewed in detail Lab and Diagnostics Result Diagram: 01/21/17 1520 01/21/17 1520 X-Rays, CTs and MRIs PROCEDURE: CT BRAIN WITHOUT CONTRAST ([id number]) INDICATIONS: altered LOC, h/o met CA IMPRESSION: No acute intracranial abnormality. Dictated by: Gonzales Jerome M.D. on 01/11/2017 at 12:43 PROCEDURE: US ABDOMEN, LIMITED ([id number]) INDICATIONS: Ascites, liver disease due to metastatic breast ca IMPRESSION: Ascites. Mild ascites is insufficient for paracentesis. Dictated by: Kathrine Giron MD, PhD on 01/12/2017 at 10:37 PROCEDURE: CT ANGIO CHEST PULMONARY EMBOLISM ([id number]) INDICATIONS: r/o PE ,d-dimer 23 IMPRESSION: 1. No pulmonary embolus. 2. Bilateral pneumonia with small parapneumonic effusions bilaterally. 3. Increased hepatic metastatic disease. Increased ascites. 4. Severe diffuse skeletal metastases. Dictated by: Otilio León M.D. on 01/13/2017 at 12:57 Assessment & Plan 66-year-old lady with past medical history of metastatic breast cancer( extensive metastases to liver and bone) presented to emergency room due to Nausea, vomiting,Generalized weakness and Lightheadedness, confusion. Patient was diagnosed with acute hypoxic respiratory failure due to hepatopulmonary syndrome, with possible HCAP. Patient was treated with 7 days of IV antibiotics. Oncology and palliative medicine were consulted, patient was started on chemotherapy monthly, hospice service was notified Acute hypoxic respiratory failure due to hepatopulmonary syndrome versus HCAP. Metastatic breast cancer( extensive metastases to liver and bone) - stable, not under control - D-dimers were elevated at [address] which was negative for PE - ID consulted, patient was treated with IV Zosyn, she finished antibiotics - oncology were consulted - Palliative care consulted Plan - c/w IV opioids for pain - Patient probably will be discharge on hospice with Oncology follow up soon - Placement with hospice Leukocytosis - Improving, not under control - probably related to her cancer - hold antibiotics for now - Follow up blood cultures Hepatic encephalopathy - worsening , patinet is refusing Lactulose and labs Plan -lactlose tid , titrate to 2-3 bowel movements a day - 1:1 if needed Intractable nausea and vomiting - Improved - due to cancer/mets -zofran and reglan prn Hyponatremia - Stable - Monitor, CMP was sent Thrombocytopenia - Secondary to liver metastases - Monitor, CBC were sent DVT PROPHYLAXIS: SCD Code status: DO NOT RESUSCITATE/DO NOT INTUBATE as per family and patient wishes. Patient will be discharge on hospice with Oncology follow up soon Disposition: discharge in 2-3 days after patient improves. Plan of care discussed with patient, nurse, treatment team; Labs, radiology tests reviewed. Plan of care, diagnostic procedures and available alternatives were discussed and reviewed with patient. All questions answered. VTE Prophylaxis: Sub-Q Enoxaparin VTE Mechanical Devices: Intermittant Pneumatic CD Resuscitation Status: DNR/DNI:Do Not Resuscitate/Intubate José Miguel Saravia MD Jan 22, 2017 13:27
--- NOTE | 2017-01-22 13:49 | NUR ---
spiritual care: palliative request Visited with pt who seemed confused and disoriented. Pt is anticipating going home with hospice. Stated no spiritual care needs at this time. Offered a blessing before leaving the room. Spiritual care will follow as needed.
--- NOTE | 2017-01-22 14:14 | NUR ---
Social Work- Readiness for Discharge/Multidisciplinary Rounds Data: EMR reviewed. Pt is on day 11 of hospitalization. Pt is medically ready for discharge home with hospice. T/C from Rangel at [facility] who has processed pt's paperwork and is planning on opening pt tomorrow at 1330. Rangel is also coordinating with pt's daughter Marylin regarding this. Rangel requests that pt d/c tomorrow at 1130 am. Pt may be a BLS candidate given encephalopathy and medical status, no BLS order entered at this time. T/C to pt's daughter Marylin regarding discharge plan and open date/time with [facility]. Awaiting return call from daughter. SW will continue to follow. Assessment: Pt for whom hospice services are indicated. Plan: Pt to d/c tomorrow morning at 1130 am, possibly via BLS pending order receipt, to open with [facility] at 1330. SW will continue to follow. LATRICE Turner
[2017-01-22 14:57] LABS: Mean Corpuscular Hemoglobin 33.3 pg (27.0-35.0); Mean Corpuscular Volume 93.8 fL (81-100)
--- NOTE | 2017-01-22 16:01 | NUR ---
[facility] Placed call to pt's daughter Marylin regarding VICK, left message requesting return call. No return call at this time. LATRICE Turner
[2017-01-22 16:19] VITALS: BP 126/72; PULSE 98; RESP 16; O2SAT 90
--- NOTE | 2017-01-22 18:21 | NUR ---
Sitter/Confusion/PICC Line Discontinued Pt became more impulsive at start of shift and forgetful of using call light even after reorienting; sitter with pt today. Pt confused today stating "you're trying to kill me." reoriented pt on dx process and periods of confusion/forgetfulness to which pt states "oh yeah." Pt requested PICC line out today; Rn educated pt on why the line was there and educated her that she would have to have by mouth pain medications only once the PICC line is out and that Chemo could not be given without the PICC line in place; all to which Palliative team reiterated to the pt and she states understanding. Order for PICC line removal, IV therapy paged; PICC line discontinued. Care ongoing.
--- NOTE | 2017-01-22 19:19 | NUR ---
Spoke with Son At pt's request spoke to pt's son Abbi on pt's cell phone; his name was not in pt chart but pt requested RN speak with her son re: her dx and prognosis.
--- NOTE | 2017-01-22 23:16 | NUR ---
Activity On initial assessment, patient very passive. Only answered yes or no questions. Refused all medications. Denied pain. Heart rate tachy during auscultation. Other vital signs stable. Per sitter, patient up to BR with assistance as patient is weak and unsteady on feet. Will monitor patient hourly. Care continues.
[2017-01-22 23:52] VITALS: BP 130/81; PULSE 103; RESP 16; O2SAT 90
[2017-01-23] MEDS: HYDROmorphone 0.5 mg/0.5 mL iSecure Syringe IVPUSH SCH ×3 (00:30→08:30)
--- NOTE | 2017-01-23 07:20 | PCM.DIMED ---
Discharge Instructions Date of Service Jan 23, 2017 Dates of Hospitalization Jan 11, 2017 at 14:51 Discharge Diagnosis Discharge Diagnosis Acute hypoxic respiratory failure due to hepatopulmonary syndrome versus HCAP. Metastatic breast cancer( extensive metastases to liver and bone), Leukocytosis , Hepatic encephalopathy , Hyponatremia, Thrombocytopenia Diet Discharge Diet: Other (General diet) Activity Discharge Activity: Other (Patient will need 22/11 supervision ) Call your provider Call your provider for: Fever or Chills, Shortness of breath, Bleeding, Chest pain, Vomitting, Excessive diarrhea, Weakness (unilateral), Other (Confusion) Patient Instructions Patient Instructions Follow up with Oncologist, Hospice service, PCP in 1-2 days after discharge. José Miguel Saravia MD Jan 23, 2017 07:20
[2017-01-23] MEDS ORDERED: ONDA8TAB10 PO (07:29)
[2017-01-23] MEDS ORDERED: LACT10SO60 PO (07:29)
[2017-01-23] MEDS ORDERED: HYDR1LIQ4 PO (07:29)
[2017-01-23 08:12] VITALS: BP 127/76; PULSE 105; RESP 16; O2SAT 89
[2017-01-23] MEDS: Lactulose 20 Gm/30 mL 30 mL Syrup PO SCH (08:30)
[2017-01-23] MEDS: Fluticasone-Salmeterol 100-50 Inhaler INHALATION SCH (09:49)
[2017-01-23] MEDS: Acyclovir 400 mg Tablet PO SCH (09:50)
--- NOTE | 2017-01-23 10:50 | NUR ---
Discharge Pt to discharge to home by way of EMS and Hospice to f/u at pt's home at 1pm; no c/o pain, HR low 100's; alert and confused by easily reoriented and very peaceful, no s/s of anxiety, RA, SP02 89%; pt not wanting to wear O2 at this time, transport made aware. Packet given with Rx's, POLST form and discharge instructions. Family made aware of transport, all personal belongings with pt at time of discharge and departure.
--- NOTE | 2017-01-23 10:53 | NUR ---
DISCHARGE TRANSPORT : Scheduled BLS transport with [facility] and they will be transporting the patient to her home in [place], pick up driver is 11AM. Updated PICK UP DRIVER
--- NOTE | 2017-01-23 11:39 | NUR ---
Social Work- Discharge Data: EMR reviewed. Pt is on day 12 of hospitalization. Pt to discharge home with hospice today. [facility] will open pt at 1330. T/C to pt's daughter Ely who is agreeable to plan. Ely is aware the coverage of BLS transport is not guaranteed. Pt's sons will be available to meet patient at home. BLS order received, transport scheduled at 11 am. PCS form complete. No additional d/c needs. Assessment: Pt for whom hospice services are indicated. Plan: Pt d/c today via BLS at 1100 am, open with [facility] at 1330. All updated and agreeable to plan. LATRICE Turner
--- NOTE | 2017-01-23 12:32 | PCM.PALLBR ---
Palliative Care Recommendation DATE of SERVICE: Jan 22, 2017 This is an unfortunate 66-year-old lady with metastatic estrogen receptor positive breast cancer, admitted with progressive hepatic failure with encephalopathy, coagulopathy. While in the hospital, chemotherapy was initiated but the patient faces a severe risk of in the coming month prior to a second dose of chemo. In light of this, and in consideration of the support her family will need, she reconsidered her goals over the weekend, and decided to change the focus of her care to comfort and to engage hospice services in the plan to return to her home under the care of her two [id number] sons. Palliative medicine was consulted to assist with symptom management and review of goals of care, and has followed along with the patient and her family as they have grappled with the decisions that the patient has faced. As she has transitioned to the focus on comfort and care in the home, we have assisted her family in understanding their role in her care, as well as to coordinate the support of the hospice team. See discussion below regarding symptom management and discharge planning recommendations. I have highlighted input from Dr. William regarding hospice plan of care. Summary of palliative recommendations: -Symptom management (Pain/other)- The patient has been reluctant to use pain medications despite ongoing discomfort. In discussing her pain needs with her oncologist, Dr. Lawrence, he earlier noted the significance of her liver failure in processing medications and strongly advised that NO LONG-ACTING medications be used and that, for the time being, the shortest acting form of hydromorphone. ie IV, is the safest for her. Today, when I was speaking with her, she indicated she might want to try oral hydromorphone again, and so prn orders for hydromorphone liquid were placed. We will continue to follow and adjust pain medications as needed. Disposition: Per palliative WEED COOKING OPERATOR on 01/21, "...choice for hospice and family has chosen [facility]. She will discuss making the official referral with Lyssa Cormier, RYAN philippe and will ask her to make referral." There remains concern about the burden of care on her two sons, who may have limited caregiving experience. In the decision-making process, we discussed that SNF, respite care in a SNF or LTC facility could be an option; and the patient (who does have medicaid coverage) could have Hospice services in this facility. On 01/22, these instructions were reviewed again with the patient's daughter who agrees and understands. We answered her questions regarding medications, equipment (which has been delivered today), and what to expect going into the next days and weeks. If the patient were to improve over the next few weeks and reconsider the possibility of continued courses of chemo in the future, the following recommendations may be useful in guiding the hospice team, or other teams involved in supporting her and her family: UPDATE as of 1800 on 01/18: Dr. William has been called; his response/input is as follows: --Dr. William feels hospice support is appropriate for this patient on discharge as she has a high risk of dying before her next chemo treatment. --He does not plan to see her but would ask for the following weekly labs to be drawn and faxed to his office on consecutive Mondays post discharge. --CBC, CMP, PT/INR, Mg++, LDH --He plans to have paracentesis done before discharge. He is not in favor of placing an indwelling catheter in her abdomen, but agrees that this could be revisited if her need for paracentesis became burdensome. --He does not think she will need transfusions in the interim month, nor does he plan CT or MRI monitoring of her cancer. -DPOA/Advanced Directives/POLST- --DNR/DNI per conversations with her hospitalist earlier in the week. --POLST completed today indicating : DNR, DNI, comfort measures, no antibiotics or artificial feedings. --Discussed with daughter Marylin the wisdom of getting DPOA paperwork done. She plans to follow up with the patient's district attorney who knows her well. She knows that [facility] will have the DPOA paperwork that she needs. Additional Medical Diagnoses with primary management by Hospitalist team include : # Acute hypoxic respiratory failure,poa # Possible HCAP, infectious disease consultation pending # hepatic encephalopathy ,acute,poa, improved # dehydration with lactic acidosis ,acute,poa resolved # Intractable nausea and vomiting ,acute,poa, improved # metastatic breast cancer( extensive metastases to liver and bone) Problems: End of Life Preferences DNR/DNI. Goals of Care Patient hoping for as much time as she can get but able to state that she knows she may have very little time. She wants to see her family and be with them as much as possible. Disposition Current choice is home with sons with hospice Resuscitation Status Resuscitation Status: DNR/DNI:Do Not Resuscitate/Intubate POLST Updates/Changes Previous POLST?: No Antibiotics: No Antibiotics Artificially Admin Nutrition: No Artifical Nutrition by Tube . Advanced Care Planning Address: POLST Pain: Moderate (seems better controlled today) Symptom management: Drowsiness/sleepiness, Agitation (mostly confusion and impulsiveness), Pain Total time 120 minutes; >50% face to face with patient and/or family, providing counselling regarding plans and recommendations, and in care coordination with his/her medical teams. Of this 45 minutes is spent in counseling for advanced care planning with the patient/the patients family/the surrogate decision maker. copies to: Rebecca Valladares PA-C; Dale William MD Palliative Brief Note Date of Service Jan 22, 2017 . Pt is nearing stable for discharge to home with hospice. [facility] notified and are arranging DME delivery for patient. The patient is more comfortable today, using oral dilaudid. Pt is confused and impulsive at times, still refusing lactulose based on its taste and not wanting to have diarrhea. The patient is able to clearly reiterate her decision for hospice care and is able to understand the choices offered on the POLST form. She clearly chooses DNR/DNI, comfort-focused care with no antibiotics or tube feeding. Glad to hear she will go home today. Karena Clemens Jan 22, 2017 11:43
--- NOTE | 2017-01-23 16:36 | PCM.PALLBR ---
Palliative Care Recommendation DATE of SERVICE: Jan 23, 2017 This is an unfortunate 66-year-old lady with metastatic estrogen receptor positive breast cancer, admitted with progressive hepatic failure with encephalopathy, coagulopathy. While in the hospital, chemotherapy was initiated but the patient faces a severe risk of in the coming month prior to a second dose of chemo. In light of this, and in consideration of the support her family will need, she reconsidered her goals over the weekend, and decided to change the focus of her care to comfort and to engage hospice services in the plan to return to her home under the care of her two [id number] sons. Palliative medicine was consulted to assist with symptom management and review of goals of care, and has followed along with the patient and her family as they have grappled with the decisions that the patient has faced. As she has transitioned to the focus on comfort and care in the home, we have assisted her family in understanding their role in her care, as well as to coordinate the support of the hospice team. See discussion below regarding symptom management and discharge planning recommendations. Family feels ready to assume care of patient per daughter. Summary of palliative recommendations: -Symptom management (Pain/other)- The patient has been reluctant to use pain medications despite ongoing discomfort. In discussing her pain needs with her oncologist, Dr. Lawrence, he earlier noted the significance of her liver failure in processing medications and strongly advised that NO LONG-ACTING medications be used and that, for the time being, the shortest acting form of hydromorphone. ie IV, is the safest for her. She has remained comfortable with IV hydromorphone, using less of it in the last few days. She agrees to transition oral hydromorphone for home pain management No rx written for HM as she has 90 pills in her current home supply. Disposition: Per palliative RESTAURANT HOURLY MANAGER on 01/21, "...choice for hospice and family has chosen [facility]. She will discuss making the official referral with RYAN Russell land surveyor assistant and will ask her to make referral." There remains concern about the burden of care on her two sons, who may have limited caregiving experience. In the decision-making process, we discussed that SNF, respite care in a SNF or LTC facility could be an option; and the patient (who does have medicaid coverage) could have Hospice services in this facility. On 01/22, these instructions were reviewed again with the patient's daughter who agrees and understands. We answered her questions regarding medications, equipment (which has been delivered today), and what to expect going into the next days and weeks. If the patient were to improve over the next few weeks and reconsider the possibility of continued courses of chemo in the future, the following recommendations may be useful in guiding the hospice team, or other teams involved in supporting her and her family: UPDATE as of 1800 on 01/18: Dr. William has been called; his response/input is as follows: --Dr. William feels hospice support is appropriate for this patient on discharge as she has a high risk of dying before her next chemo treatment. --He does not plan to see her but would ask for the following weekly labs to be drawn and faxed to his office on consecutive Mondays post discharge. --CBC, CMP, PT/INR, Mg++, LDH --Re: paracentesis. He is not in favor of placing an indwelling catheter in her abdomen, but agrees that this could be revisited if her need for paracentesis became burdensome. --He does not think she will need transfusions in the interim month, nor does he plan CT or MRI monitoring of her cancer. -DPOA/Advanced Directives/POLST- --DNR/DNI per conversations with her hospitalist earlier in the week. --POLST completed today indicating : DNR, DNI, comfort measures, no antibiotics or artificial feedings. --Discussed with daughter Marylin the wisdom of getting DPOA paperwork done. She plans to follow up with the patient's building services engineer who knows her well. She knows that [facility] will have the DPOA paperwork that she needs. Additional Medical Diagnoses with primary management by Hospitalist team include : # Acute hypoxic respiratory failure,poa # Possible HCAP, infectious disease consultation pending # hepatic encephalopathy ,acute,poa, improved # dehydration with lactic acidosis ,acute,poa resolved # Intractable nausea and vomiting ,acute,poa, improved # metastatic breast cancer( extensive metastases to liver and bone) Problems: End of Life Preferences DNR/DNI. Goals of Care Patient hoping for as much time as she can get but able to state that she knows she may have very little time. She wants to see her family and be with them as much as possible. Disposition Current choice is home with sons with hospice Resuscitation Status Resuscitation Status: DNR/DNI:Do Not Resuscitate/Intubate POLST Updates/Changes Previous POLST?: No Antibiotics: No Antibiotics Artificially Admin Nutrition: No Artifical Nutrition by Tube POLST Discussed with: Patient POLST Review Outcome: New Form Completed . Advanced Care Planning Address: POLST Pain: Mild Symptom management: Depression, Anxiety, Pain Total time 20 minutes; >50% face to face with patient and/or family, providing counselling regarding plans and recommendations, and in care coordination with his/her medical teams. copies to: Rebecca Valladares PA-C; Dale William MD Palliative Brief Note Date of Service Jan 23, 2017 . Pt sitting at side of bed awaiting discharge. She reports pain levels below 3 / 10 and does not wish to have additional pain or anxiety medication before transport. She knows that she did not get a paracentesis and feels that this is OK. She understands that hospice can arrange for this if needed. She is smiling at the thought of being home with family and able to thank us for our care. d/w RN--all needs met, patient ready for discharge. Karena Clemens Jan 23, 2017 13:17
--- NOTE | 2017-01-23 17:09 | PCM.DC.MED ---
Discharge Summary Date of Service Jan 23, 2017 Dates of Hospitalization Date of Hospital Admission Jan 11, 2017 at 14:51 Date of Discharge: Jan 23, 2017 Providers: Admitting Physician: Deepali Cintron DO Primary Care Physician: Rebecca Valladares PA-C Attending Physician: José Miguel Saravia MD Diagnosis at Time of Discharge Diagnosis at Time of Discharge Acute hypoxic respiratory failure due to hepatopulmonary syndrome versus HCAP. Metastatic breast cancer( extensive metastases to liver and bone), Leukocytosis , Hepatic encephalopathy , Hyponatremia, Thrombocytopenia Procedures XRay, CTs & MRIs PROCEDURE: CT BRAIN WITHOUT CONTRAST ([id number]) INDICATIONS: altered LOC, h/o met CA IMPRESSION: No acute intracranial abnormality. Dictated by: Gonzales Jerome M.D. on 01/11/2017 at 12:43 PROCEDURE: US ABDOMEN, LIMITED ([id number]) INDICATIONS: Ascites, liver disease due to metastatic breast ca IMPRESSION: Ascites. Mild ascites is insufficient for paracentesis. Dictated by: Kathrine Giron MD, PhD on 01/12/2017 at 10:37 PROCEDURE: CT ANGIO CHEST PULMONARY EMBOLISM ([id number]) INDICATIONS: r/o PE ,d-dimer 23 IMPRESSION: 1. No pulmonary embolus. 2. Bilateral pneumonia with small parapneumonic effusions bilaterally. 3. Increased hepatic metastatic disease. Increased ascites. 4. Severe diffuse skeletal metastases. Dictated by: Otilio León M.D. on 01/13/2017 at 12:57 Hospital Course 66-year-old lady with past medical history of metastatic breast cancer( extensive metastases to liver and bone) presented to emergency room due to Nausea, vomiting, Generalized weakness and Lightheadedness, confusion. Patient was diagnosed with acute hypoxic respiratory failure due to hepatopulmonary syndrome, with possible HCAP, hepatic encephalopathy. Patient was treated with 7 days of IV antibiotics, PO Lactulose, IVF. Oncology and palliative medicine were consulted, patient was started on chemotherapy monthly, hospice service was consulted. While in the hospital patient received FFP to decrease her INR/ PTT so she could have paracentesis. Paracentesis was not done, there was not much fluid in the abdomen to drain. During this hospital stay patient had intermittent confusion, she needed a sitter. Patient has been refusing her lactulose, lab draws, care. Hospice was consulted. Family agreed to take the patient home on hospice with Oncology follow up. Overall prognosis is poor, family is aware of it. Patient was seen and examined on the day of discharge.She was discharged home with hospice with recommendation to follow up with her PCP, oncologist, hospice service for further management of her medical problems. Family was in agreement with the plan. Patient Condition @ Discharge: good Discharge Disposition: home Discharge Activity: resume regular activity, patient was advised to avoid heavy physical work or exertion Discharge Diet: regular diet, heart healthy, low fat, low salt, high fiber Information Provided to Patient: information about discharge medications TIME SPENT IN DISCHARGE ACTIVITY: activity greater then 30 minutes spent in discharge activity. 1. Discussed with the patient re: discharge plan of care/treatment, and follow up care/services. 2. Patient/family agreed with discharge plan and further plan of care, all questions were answered/addressed, no further questions at the time of discharge. Exam Vital Signs (Last) Date Time Temp Pulse Resp B/P Pulse Ox O2 Delivery O2 Flow Rate FiO2 01/23/17 08:12 36.4 105 16 127/76 89 Room Air 01/19/17 06:25 5.00 Test 01/11/17 13:15 01/12/17 05:35 01/12/17 08:48 01/13/17 08:19 Lipase 22U/L (13-60) Lactic Acid Level 1.9mmol/L (0.4-2.0) Magnesium Level 2.1mg/dL (1.6-2.6) Urine Color Nela (YELLOW) Urine Appearance Cloudy (CLEAR,HAZY) Urine pH 6.0 (5.0-8.0) Urine Specific [place] 1.026 (1.003-1.035) Urine Protein Negativemg/dL (NEG,TRACE) Urine Glucose (UA) Negativemg/dL (NEGATIVE) Urine Ketones Negativemg/dL (NEGATIVE) Urine Occult Blood Negative (NEGATIVE) Urine Nitrite Negative (NEGATIVE) Urine Bilirubin Moderate (NEGATIVE) Urine Ictotest Positive (Negative) Urine Urobilinogen Normalmg/dL (NORMAL) Urine Leukocyte Esterase Negative (NEGATIVE) Urine RBC 0-2/hpf (0-2) Urine WBC 0-5/hpf (0-5) Urine Epithelial Cells Few/hpf (NONE-MOD) Urine Crystals Amorphous urates (NONE Urine Bacteria None/hpf (NONE-FEW) Urine Hyaline Casts None/lpf (NONE) Urine Granular Casts None seen (NONE SEEN) Urine Waxy Casts None seen (NONE SEEN) Urine Red Blood Cell Casts None seen (NONE SEEN) Urine White Blood Cell Casts None seen (NONE SEEN) Urine Mucus None seen (None Seen) Urine Trichomonas None seen (NONE SEEN) Urine Yeast None (NONE SEEN) Urinalysis Comment None Urine Culture Reflexed Not indicated Pro-B-Type Natriuretic Peptide 320.0pg/mL (0-301) Test 01/16/17 06:30 01/19/17 04:50 01/20/17 06:05 01/21/17 15:20 Fibrinogen 297mg/dL (157-380) D-Dimer 33.43mg/L FEU (<0.50) Ammonia 128ug/dL (18-53) Lactate Dehydrogenase 850U/L (100-190) CA 27.29 1678.6U/mL (0.0-38.6) Procalcitonin 1.93ng/mL (0.00-0.08) Neutrophils (%) (Auto) 69% (40-74) Lymphocytes (%) (Auto) 14% (14-46) Monocytes (%) (Auto) 15% (4-12) Eosinophils (%) (Auto) 0% (0-5) Basophils (%) (Auto) 0% (0-3) Band Neutrophils % 2% (1-5) Hematology Comments Prothrombin Time 18.0sec (8.1-12.5) Prothromb Time International Ratio 1.66ratio Aluminum Level 4ug/L (0-9) Test 01/21/17 16:20 01/22/17 14:45 Hold [place] Top Tube Received (Received) Hold [place] Top Tube Received (Received) White Blood Count 14.9th/mm3 (3.8-10.1) Red Blood Count 3.84mil/mm3 (3.90-5.20) Hemoglobin 12.8g/dL (12.0-15.6) Hematocrit 36.0% (35.0-46.0) Mean Corpuscular Volume 93.8fL (81-100) Mean Corpuscular Hemoglobin 33.3pg (27.0-35.0) Mean Corpuscular Hemoglobin Concent 35.6% (32.0-37.0) Red Cell Distribution Width 17.4% (12.3-15.4) Platelet Count 74bil/L (150-400) Sodium Level 128mEq/L (134-144) Potassium Level 4.6mEq/L (3.5-5.2) Chloride Level 92mEq/L (97-108) Carbon Dioxide Level 23mmol/L (18-29) Blood Urea Nitrogen 71mg/dL (8-27) Creatinine 1.66mg/dL (0.57-1.00) Estimat Glomerular Filtration Rate 44mL/min (>59) Glucose Level 194mg/dL (60-99) Calcium Level 7.4mg/dL (8.5-10.1) Total Bilirubin 11.1mg/dL (0.0-1.2) Aspartate Amino Transf (AST/SGOT) 239U/L (0-50) Alanine Aminotransferase (ALT/SGPT) 134U/L (0-32) Alkaline Phosphatase 340U/L (25-165) Total Protein 4.9g/dL (6.4-8.4) Albumin 2.4g/dL (3.4-5.0) Discharge Medications Discharge Medications Acyclovir (Acyclovir) 400 Mg Tablet 400 MG PO DAILY (Reported) Lactulose (Lactulose) 20 Gm/30 Ml Solution 20 GM PO TID Prescribed by: ELIAS BROWN MD Mometasone/Formoterol (Dulera 100 Mcg/5 Mcg Inhaler) 13 Gm Hfa.aer.ad 2 PUFFS IH BID (Reported) As needed Hydromorphone (Hydromorphone) 1 Mg/1 Ml Liquid 1-2 MG PO Q2H PRN PRN For Pain Prescribed by: ELIAS BROWN MD Ondansetron ODT (Ondansetron ODT) 8 Mg Tab.rapdis 8 MG PO Q12H PRN PRN For Nausea Prescribed by: ELIAS BROWN MD Followup Plan Discharge Diet: Other (General diet) Discharge Activity: Other (Patient will need 22/11 supervision ) Patient Instructions Follow up with Oncologist, Hospice service, PCP in 1-2 days after discharge. José Miguel Saravia MD Jan 23, 2017 17:09
== END 2017-01-23 11:05 | disposition hospice, home (50) | DRG 441 ==
LOC: SED 12:44 → OSC 14:51
PROVIDERS: ADMIT Neuromusculoskeletal Medicine & OMM; ATTEND Internal Medicine
PROC: 3E04305 Introduction of Other Antineoplastic into Central Vein, Percutaneous Approach (ICD-10-PCS; principal; 2017-01-17)
PROC: 30233K1 Transfusion of Nonautologous Frozen Plasma into Peripheral Vein, Percutaneous Approach (ICD-10-PCS; 2017-01-19)
DX: K72.00 Acute and subacute hepatic failure without coma (principal); J96.01 Acute respiratory failure with hypoxia; C78.7 Secondary malignant neoplasm of liver and intrahepatic bile duct; C79.51 Secondary malignant neoplasm of bone; R18.8 Other ascites; E87.2 Acidosis; C50.919 Malignant neoplasm of unspecified site of unspecified female breast; Z17.0 Estrogen receptor positive status [ER+]; K76.81 Hepatopulmonary syndrome; Z66 Do not resuscitate; E86.0 Dehydration